=== PATIENT | male | born 1975 | race Caucasian/White ===

== ENCOUNTER 2020-09-03 11:30 | Inpatient (IN) | payer SELFPAY ==
[2020-09-03] MEDS ORDERED: NA CHLORIDE 0.9% 1,000 ML ONE ×2 (12:04→14:01)
[2020-09-03] MEDS ORDERED: MORPHINE 4 MG/ML SYR ONE (12:04)
[2020-09-03] MEDS ORDERED: ONDANSETRON 4 MG/2 ML VIAL ONE ×2 (12:04→16:41)
[2020-09-03 12:17] LABS: Absolute Lymphocytes (CBC) 1.7 K/uL (0.7-4.9); Basophils % 0.7 % (0-1.3); Hematocrit 44.4 % (39.6-49.0); Lymphocytes % 20.6 % (15.3-44.8); MPV 6.7 fL (7.6-11.3); RBC Red Blood Cell Count 4.54 M/uL (4.33-5.43)
[2020-09-03 12:37] LABS: ALT/SGPT 41 U/L (12-78); AST/SGOT 23 U/L (15-37); Albumin 3.8 g/dL (3.4-5.0); Alkaline Phosphatase 96 U/L (45-117); BUN Blood Urea Nitrogen 11 mg/dL (7-18); Bicarbonate 24 mmol/L (21-32); Bilirubin Direct 0.2 mg/dL (0-0.2); Bilirubin Total 0.7 mg/dL (0.2-1.0); Glucose Level 124 mg/dL (74-106); Lipase 645 U/L (73-393); Potassium 4.1 mmol/L (3.5-5.1); Protein, Total 8.1 g/dL (6.4-8.2); Sodium Level 138 mmol/L (136-145)
[2020-09-03] MEDS ORDERED: FENTANYL CITR 100 MCG/2 ML ONE (13:26)
--- NOTE | 2020-09-03 13:39 | RAD REPORT ---
EXAM DESCRIPTION: CTAbdomen Pelvis W Contrast - 09/03/2020 1:06 pm CLINICAL HISTORY: Abdominal pain. ABD PAIN COMPARISON: No comparisons TECHNIQUE: Biphasic CT imaging of the abdomen and pelvis was performed with 100 ml non-ionic IV cont rast. All CT scans are performed using dose optimization technique as appropriate and may include automated exposure control or mA/KV adjustment according to patient size. FINDINGS: The lung bases are clear. The liver, spleen, adrenal glands and kidneys are within normal limits. Subtle peripancreatic edema a nd inflammatory changes suggests mild pancreatitis. No complication. No bowel obstruction, free air, free fluid or abscess. The appendix is normal. No evidence of signi ficant lymphadenopathy. No suspicious bony findings. IMPRESSION: Mild acute pancreatitis is suspected.
--- NOTE | 2020-09-03 13:56 | ER ---
Nurse's Notes [facility] Name: Omar Johnson Age: 45 yrs Sex: Male : 1975 Arrival Date: 09/03/2020 Time: 11:33 Bed 18 Private MD: Diagnosis: Acute pancreatitis Presentation: 09/03 11:40 Chief complaint: Upper abdominal pain that radiates to the back x 4 days. Hx of aa5 pancreatitis. Coronavirus screen: At this time, the client does not indicate any symptoms associated with coronavirus-19. Ebola Screen: No symptoms or risks identified at this time. Initial Sepsis Screen: Does the patient meet any 2 criteria? No. Patient's initial sepsis screen is negative. Does the patient have a suspected source of infection? No. Patient's initial sepsis screen is negative. Risk Assessment: Do you want to hurt yourself or someone else? Patient reports no desire to harm self or others. Onset of symptoms was August 30, 2020. 11:40 Method Of Arrival: Ambulatory aa5 11:40 Acuity: AMOR 3 aa5 Triage Assessment: 11:50 General: Appears distressed, uncomfortable, Behavior is cooperative, appropriate for bp age, anxious. Pain: Complains of pain in abdomen. EENT: No deficits noted. Neuro: No deficits noted. Cardiovascular: No deficits noted. Respiratory: No deficits noted. GI: Abdomen is non-distended, Abdomen is tender to palpation in right upper quadrant and left upper quadrant. : No signs and/or symptoms were reported regarding the genitourinary system. Derm: No deficits noted. Musculoskeletal: No deficits noted. Historical: - Allergies: 11:49 No Known Allergies; aa5 - PMHx: 11:49 Pancreatitis; aa5 - PSHx: 11:49 Knee surgery; eye; wrist; aa5 - Immunization history:: Adult Immunizations up to date. - Social history:: Smoking status: Patient reports the use of cigarette tobacco products, smokes one-half pack cigarettes per day, Patient uses alcohol, every other day since June, heavy ETOH prior. Screenin:55 Abuse screen: Denies threats or abuse. Denies injuries from another. Nutritional bp screening: No deficits noted. Tuberculosis screening: No symptoms or risk factors identified. Fall Risk None identified. Assessment: 11:50 General: SEE TRIAGE NOTE. bp 12:47 Reassessment: No changes from previously documented assessment. Patient and/or family bp updated on plan of care and expected duration. Pain level reassessed. CT RESULTS PENDING. GI: Bowel sounds present X 4 quads. 13:11 Reassessment: Patient appears in no apparent distress at this time. Patient and/or bp family updated on plan of care and expected duration. Pain level reassessed. Patient is alert, oriented x 3, equal unlabored respirations, skin warm/dry/pink. PT RETURNED FROM CT. 15:00 Reassessment: No changes from previously documented assessment. ADMIT IN PROCESS. bp FAMILY AT B/S Patient states symptoms have not improved. Vital Signs: 11:40 BP 135 / 95; Pulse 105; Resp 20; Temp 99; Pulse Ox 100% ; Weight 72.57 kg; Height 5 ft. bp 9 in. (175 cm); Pain 8/10; 12:47 BP 131 / 89; Pulse 60; Resp 16; Pulse Ox 98% ; bp 13:11 BP 150 / 108; Pulse 73; Resp 15; Pulse Ox 100% ; bp 14:08 BP 124 / 88; Pulse 60; Resp 18; Temp 98.0(O); Pulse Ox 97% on R/A; mh5 15:10 BP 142 / 98; Pulse 56; Resp 16; Pulse Ox 100% ; bp 16:19 BP 130 / 103; Pulse 63; Resp 18; Temp 98.0(O); Pulse Ox 94% ; mh5 16:54 BP 137 / 92; Pulse 59; Resp 16; Temp 98; Pulse Ox 100% ; bp 11:40 Body Mass Index 23.63 (72.57 kg, 175 cm) bp ED Course: 11:33 Patient arrived in ED. ag5 11:36 Trinity Her[facility]C [facility] kb 11:36 Macario Carlisle MD is Attending Physician. kb 11:44 Carlos Lamb, CLARIBEL is Primary Nurse. bp 11:47 Triage completed. aa5 11:49 Arm band placed on. aa5 11:55 Patient has correct armband on for positive identification. Bed in low position. Call bp light in reach. Side rails up X2. 11:57 Inserted saline lock: 20 gauge in right forearm, using aseptic technique. Blood bp collected. 13:06 CT Abd/Pelvis - IV Contrast Only In Process Unspecified. EDMS 13:55 Deanna Salamanca MD is Hospitalizing Provider. kb 16:53 No provider procedures requiring assistance completed. Patient admitted, IV remains in bp place. Administered Medications: 12:00 Drug: NS 0.9% 1000 ml Route: IV; Rate: 1000 ml; Site: right forearm; bp 12:00 Drug: Zofran (Ondansetron) 4 mg Route: IVP; Site: right antecubital; bp 13:44 Follow up: Response: No adverse reaction bp 12:00 Drug: morphine 4 mg Route: IVP; Site: right forearm; bp 13:45 Follow up: Response: Pain is decreased bp 13:15 Drug: fentaNYL (PF) 50 mcg Route: IVP; Site: right antecubital; bp 13:45 Follow up: Response: Pain is decreased bp 13:50 Drug: NS 0.9% 1000 ml Route: IV; Rate: 125 ml/hr; Site: right forearm; bp 16:54 Follow up: IV Status: Infusion continued upon admission bp 13:50 Drug: fentaNYL (PF) 50 mcg Route: IVP; Site: right forearm; bp 13:52 Follow up: Response: Pain is decreased bp Outcome: 13:55 Decision to Hospitalize by Provider. kb 16:53 Admitted to Med/surg accompanied by tech, via wheelchair, room 205, with chart, Other bp REPORT BY PRATIMA SANFORD Report called to SILVER SANFORD 16:53 Condition: stable 16:53 Instructed on the need for admit. 16:55 Patient left the ED. bp Signatures: Dispatcher [employer] EDIL Trinity Herrera, GUNNER'S MATE-C GUNNER'S MATE-Ckb Pratima Bartlett, RN RN [email or web address] Monserrat Bell Carlos Valle RN RN Mulugeta Ceja ag5 Corrections: (The following items were deleted from the chart) 15:22 11:40 BP 135 / 95; Pulse 105bpm; Resp 20bpm; Pulse Ox 100%; Temp 99F; 72.57 kg; Height bp 5 ft. 9 in.; BMI: 23.6; Pain 8/10; aa5 15:53 11:40 BP 135 / 95; Pulse 105bpm; Resp 20bpm; Pulse Ox 100%; Temp 99F; 72.57 kg; Height bp 5 ft. 9 in.; BMI: 23.6; Pain 8/10; bp
--- NOTE | 2020-09-03 13:56 | EDPHYS ---
Physician Documentation [facility] Name: Omar Johnson Age: 45 yrs Sex: Male : 1975 Arrival Date: 09/03/2020 Time: 11:33 Bed 18 Private MD: ED Physician Macario Carlisle HPI: 09/03 12:59 This 45 yrs old Male presents to ER via Ambulatory with complaints of kb Abdominal Pain. 12:59 The patient presents with abdominal pain in the upper abdomen. Onset: The kb symptoms/episode began/occurred 4 day(s) ago. The symptoms radiate to right back. Associated signs and symptoms: Pertinent positives: nausea, Pertinent negatives: constipation, diarrhea, fever, vomiting. The symptoms are described as constant. Modifying factors: The symptoms are alleviated by nothing, the symptoms are aggravated by pressure. Severity of pain: At its worst the pain was severe in the emergency department the pain is unchanged. The patient has experienced a previous episode. The patient has not recently seen a physician. Pt reports upper abd pain that radiates to the back that began 4 days ago and has gotten worse. Reports he has been unable to eat due to lack of appetite. Had similar symptoms once before and was admitted to [facility] for pancreatitis back in June. States he used to drink heavily before that, but now only every other day and not near as much.. Historical: - Allergies: 11:49 No Known Allergies; aa5 - PMHx: 11:49 Pancreatitis; aa5 - PSHx: 11:49 Knee surgery; eye; wrist; aa5 - Immunization history:: Adult Immunizations up to date. - Social history:: Smoking status: Patient reports the use of cigarette tobacco products, smokes one-half pack cigarettes per day, Patient uses alcohol, every other day since June, heavy ETOH prior. ROS: 12:56 Constitutional: Negative for fever, chills, and weight loss, Cardiovascular: Negative kb for chest pain, palpitations, and edema, Respiratory: Negative for shortness of breath, cough, wheezing, and pleuritic chest pain, Back: Negative for injury and pain, MS/Extremity: Negative for injury and deformity, Skin: Negative for injury, rash, and discoloration, Neuro: Negative for headache, weakness, numbness, tingling, and seizure. 12:56 Abdomen/GI: Positive for abdominal pain, nausea, Negative for vomiting, diarrhea, constipation. Exam: 12:56 Constitutional: This is a well developed, well nourished patient who is awake, alert, kb and in no acute distress. Head/Face: Normocephalic, atraumatic. Chest/axilla: Normal chest wall appearance and motion. Nontender with no deformity. No lesions are appreciated. Cardiovascular: Regular rate and rhythm with a normal S1 and S2. No gallops, murmurs, or rubs. Normal PMI, no JVD. No pulse deficits. Respiratory: Lungs have equal breath sounds bilaterally, clear to auscultation and percussion. No rales, rhonchi or wheezes noted. No increased work of breathing, no retractions or nasal flaring. Back: No spinal tenderness. No costovertebral tenderness. Full range of motion. Skin: Warm, dry with normal turgor. Normal color with no rashes, no lesions, and no evidence of cellulitis. MS/ Extremity: Pulses equal, no cyanosis. Neurovascular intact. Full, normal range of motion. Neuro: Awake and alert, GCS 15, oriented to person, place, time, and situation. Cranial nerves II-XII grossly intact. Motor strength 5/5 in all extremities. Sensory grossly intact. Cerebellar exam normal. Normal gait. 12:56 Abdomen/GI: Inspection: abdomen appears normal, Bowel sounds: normal, in all quadrants, Palpation: soft, in all quadrants, moderate abdominal tenderness, in the right upper quadrant. Vital Signs: 11:40 BP 135 / 95; Pulse 105; Resp 20; Temp 99; Pulse Ox 100% ; Weight 72.57 kg; Height 5 ft. bp 9 in. (175 cm); Pain 8/10; 12:47 BP 131 / 89; Pulse 60; Resp 16; Pulse Ox 98% ; bp 13:11 BP 150 / 108; Pulse 73; Resp 15; Pulse Ox 100% ; bp 14:08 BP 124 / 88; Pulse 60; Resp 18; Temp 98.0(O); Pulse Ox 97% on R/A; mh5 15:10 BP 142 / 98; Pulse 56; Resp 16; Pulse Ox 100% ; bp 16:19 BP 130 / 103; Pulse 63; Resp 18; Temp 98.0(O); Pulse Ox 94% ; mh5 16:54 BP 137 / 92; Pulse 59; Resp 16; Temp 98; Pulse Ox 100% ; bp 11:40 Body Mass Index 23.63 (72.57 kg, 175 cm) bp MDM: 11:45 Patient medically screened. kb 12:59 Data reviewed: vital signs, nurses notes. Data interpreted: Pulse oximetry: on room air kb is 98 %. Interpretation: normal. 13:45 Counseling: I had a detailed discussion with the patient and/or guardian regarding: the kb historical points, exam findings, and any diagnostic results supporting the discharge/admit diagnosis, lab results, radiology results, the need for further work-up and treatment in the hospital. 09/03 11:46 Order name: Basic Metabolic Panel; Complete Time: 12:37 kb 09/03 11:46 Order name: CBC with Diff; Complete Time: 12:37 kb 09/03 11:46 Order name: Hepatic Function; Complete Time: 12:37 kb 09/03 11:46 Order name: Lipase; Complete Time: 12:37 kb 09/03 14:05 Order name: Lipase [facility] 09/03 14:05 Order name: CBC with Automated Diff [facility] 09/03 12:37 Order name: CT Abd/Pelvis - IV Contrast Only; Complete Time: 13:42 kb 09/03 14:05 Order name: CBC with Automated Diff [facility] 09/03 14:05 Order name: Comprehensive Metabolic Panel [facility] 09/03 14:05 Order name: Comprehensive Metabolic Panel [facility] 09/03 14:05 Order name: Lipase [facility] 09/03 14:05 Order name: Lipase [facility] 09/03 14:05 Order name: Lipid Profile [facility] 09/03 14:05 Order name: Lipid Profile [facility] 09/03 11:46 Order name: IV Saline Lock; Complete Time: 12:05 kb 09/03 11:46 Order name: Labs collected and sent; Complete Time: 12:05 kb 09/03 14:05 Order name: CONS Pharmacy Consult [facility] 09/03 14:05 Order name: NPO [facility] Administered Medications: 12:00 Drug: NS 0.9% 1000 ml Route: IV; Rate: 1000 ml; Site: right forearm; bp 12:00 Drug: Zofran (Ondansetron) 4 mg Route: IVP; Site: right antecubital; bp 13:44 Follow up: Response: No adverse reaction bp 12:00 Drug: morphine 4 mg Route: IVP; Site: right forearm; bp 13:45 Follow up: Response: Pain is decreased bp 13:15 Drug: fentaNYL (PF) 50 mcg Route: IVP; Site: right antecubital; bp 13:45 Follow up: Response: Pain is decreased bp 13:50 Drug: NS 0.9% 1000 ml Route: IV; Rate: 125 ml/hr; Site: right forearm; bp 16:54 Follow up: IV Status: Infusion continued upon admission bp 13:50 Drug: fentaNYL (PF) 50 mcg Route: IVP; Site: right forearm; bp 13:52 Follow up: Response: Pain is decreased bp Disposition: 09/04 14:37 Co-signature as Attending Physician, Macario Carlisle MD I agree with the assessment and kdr plan of care. Disposition: 09/03/20 13:55 Hospitalization ordered by Deanna Salamanca for Observation. Preliminary diagnosis is Acute pancreatitis. - Bed requested for Telemetry/MedSurg (observation). - Status is Observation. bp - Condition is Stable. - Problem is new. - Symptoms are unchanged. Signatures: Dispatcher [employer] EDMS Trinity Herrera, MIND READER-C MIND READER-Ckb Vanessa Benitez, RN RN dw Macario Carlisle MD MD [facility] Pratima Bartlett, RN RN aa5 Carlos Lamb RN RN bp Corrections: (The following items were deleted from the chart) 09/03 16:02 13:55 Hospitalization Ordered by Deanna Salamanca MD for Observation. Preliminary dw diagnosis is Acute pancreatitis. Bed requested for Telemetry/MedSurg (observation). Status is Observation. Condition is Stable. Problem is new. Symptoms are unchanged. kb 16:55 16:02 09/03/2020 13:55 Hospitalization Ordered by Deanna Salamanca MD for Observation. bp Preliminary diagnosis is Acute pancreatitis. Bed requested for Telemetry/MedSurg (observation). Status is Observation. Condition is Stable. Problem is new. Symptoms are unchanged. dw
[2020-09-03] MEDS ORDERED: ONDANSETRON 4 MG/2 ML VIAL IV PRN (14:01)
[2020-09-03] MEDS ORDERED: MORPHINE 2 MG/ML SYR IV PRN (14:01)
[2020-09-03] MEDS ORDERED: ACETAMINOPHEN 500 MG TAB PO PRN (14:01)
[2020-09-03] MEDS: NA CHLORIDE 0.9% 1,000 ML IV SCH (15:00)
--- NOTE | 2020-09-03 15:51 | P.HP ---
Certification for Inpatient Patient admitted to: Inpatient With expected LOS: >2 Midnights Patient will require the following post-hospital care: None Practitioner: I am a practitioner with admitting privileges, knowledge of patient current condition, hospital course, and medical plan of care. Services: Services provided to patient in accordance with Admission requirements found in Title 42 Section 412.3 of the Code of Federal Regulations Patient History Date of Service: 09/03/20 Reason for admission: Acute pancreatitis History of Present Illness: Patient is a 45-year-old gentleman came into the hospital with abdominal pain. Pain was mainly in the epigastric area with radiation to the back. Patient was drinking with his friends. He has had similar episode about a month and half ago. He thought that he would no longer have any issues with alcohol so he decided to drink again. He started having severe abdominal pain and came into the ER for further evaluation. In the emergency room he was found have acute pancreatitis and admitted for inpatient hospitalization. Allergies No Known Allergies Allergy (Unverified 09/03/20 15:18) Home Medications: NK [No Home Meds] 09/03/20 - Past Medical/Surgical History -: Pancreatitis Past Surgical History: Patient denies surgical history - Family History Father Family History: Reviewed- Non-Contributory - Social History Smoking Status: Current every day smoker Alcohol use: Yes CD- Drugs: No Review of Systems 10-point ROS is otherwise unremarkable Physical Examination - Vital Signs Temperature: 98 F Blood Pressure: 140/80 Pulse: 88 Respirations: 18 Pulse Ox (%): 96 - Physical Exam General: Alert, In no apparent distress, Oriented x3 HEENT: Atraumatic, PERRLA, Mucous membr. moist/pink, EOMI, Sclerae nonicteric Neck: Supple, 2+ carotid pulse no bruit, No LAD, Without JVD or thyroid abnormality Respiratory: Clear to auscultation bilaterally, Normal air movement Cardiovascular: Regular rate/rhythm, Normal S1 S2, No murmurs Gastrointestinal: Normal bowel sounds, Soft and benign, No guarding, Distended, Tenderness, Rebound Musculoskeletal: No clubbing, No swelling, No tenderness Integumentary: No rashes Neurological: Normal gait, Normal speech, Normal strength at 5/5 x4 extr, Normal tone, Sensation intact, Cranial nerves 3-12 intact, Normal affect Lymphatics: No axilla or inguinal lymphadenopathy - Studies Laboratory Data (last 24 hrs) 09/03/20 11:58: WBC 8.2, Hgb 15.3, Hct 44.4, Plt Count 271 09/03/20 11:58: Sodium 138, Potassium 4.1, BUN 11, Creatinine 0.87, Glucose 124 H, Total Bilirubin 0.7, AST 23, ALT 41, Alkaline Phosphatase 96, Lipase 645 H Assessment & Plan - Problems (Diagnosis) (1) Acute alcoholic pancreatitis Current Visit: Yes Status: Acute (2) Alcohol abuse Current Visit: Yes Status: Acute (3) Tobacco abuse Current Visit: Yes Status: Acute - Plan Plan: 1. Aggressive IV hydration 2. Pain control 3. NPO 4. Monitor lipase 5. Monitor electrolytes 6. Counseled regarding alcohol and tobacco cessation 7. GI and DVT prophylaxis Discharge Plan: Home Plan to discharge in: Greater than 2 days - Advance Directives Does patient have a Living Will: No Does patient have a Durable POA for Healthcare: No - Code Status/Comfort Care Code Status Assessed: Yes Code Status: Full Code Critical Care: No Time Spent Managing PTS Care (In Minutes): 45
[2020-09-03] MEDS ORDERED: MORPHINE 2 MG/ML SYR ONE (16:40)
[2020-09-03] MEDS: HYDROMORPHONE HCL 1 MG/ML INJ IV PRN (17:16)
[2020-09-03 17:26] VITALS: BMI 23.6
[2020-09-03] MEDS ORDERED: HYDROMORPHONE HCL 1 MG/ML INJ IV ONE (19:35)
[2020-09-03] MEDS ORDERED: MEPERIDINE HCL 25 MG/ML SYR IV ONE (21:55)
[2020-09-04] MEDS ORDERED: HYDROMORPHONE HCL 2 MG/ML inj IV ONE (00:28)
[2020-09-04] MEDS: NA CHLORIDE 0.9% 1,000 ML IV SCH ×5 (00:39→23:00)
[2020-09-04 01:16] LABS: ALT/SGPT 36 U/L (12-78); AST/SGOT 20 U/L (15-37); Albumin 3.5 g/dL (3.4-5.0); Alkaline Phosphatase 79 U/L (45-117); BUN Blood Urea Nitrogen 9 mg/dL (7-18); Bicarbonate 25 mmol/L (21-32); Bilirubin Total 0.7 mg/dL (0.2-1.0); Glucose Level 79 mg/dL (74-106); Potassium 3.5 mmol/L (3.5-5.1); Protein, Total 6.9 g/dL (6.4-8.2); Sodium Level 139 mmol/L (136-145)
[2020-09-04 02:12] LABS: Urine Appearance CLEAR; Urine Bilirubin NEGATIVE (NEG); Urine Blood NEGATIVE (NEG); Urine Color YELLOW; Urine Glucose NEGATIVE (NEG); Urine Protein NEGATIVE (NEG); Urine Specific Gravity 1.015 (1.005-1.030); Urine Urobilinogen 0.2 mg/dL (0.2-1.0); Urine pH 5.5 (5.0-7.0)
[2020-09-04 02:22] LABS: Urine Microscopic Reflex NO UMIC
[2020-09-04] MEDS: HYDROMORPHONE HCL 1 MG/ML INJ IV PRN ×7 (04:23→23:12)
[2020-09-04 05:04] LABS: Hematocrit 38.3 % (39.6-49.0); RBC Red Blood Cell Count 3.98 M/uL (4.33-5.43)
[2020-09-04 05:05] LABS: Absolute Lymphocytes (CBC) 1.1 K/uL (0.7-4.9); Basophils % 0.3 % (0-1.3); Lymphocytes % 12.6 % (15.3-44.8); MPV 6.4 fL (7.6-11.3)
[2020-09-04 05:31] LABS: ALT/SGPT 33 U/L (12-78); AST/SGOT 19 U/L (15-37); Albumin 3.4 g/dL (3.4-5.0); Alkaline Phosphatase 76 U/L (45-117); BUN Blood Urea Nitrogen 9 mg/dL (7-18); Bicarbonate 24 mmol/L (21-32); Bilirubin Total 0.6 mg/dL (0.2-1.0); Glucose Level 76 mg/dL (74-106); Potassium 3.5 mmol/L (3.5-5.1); Protein, Total 6.9 g/dL (6.4-8.2); Sodium Level 139 mmol/L (136-145)
[2020-09-04 05:32] LABS: HDL Cholesterol 36 mg/dL (40-60); LDL Cholesterol, Calculated 94 (<130); Lipase 5266 U/L (73-393)
[2020-09-04] MEDS ORDERED: NA CHLORIDE 0.9% 1,000 ML IV ONE (06:36)
--- NOTE | 2020-09-04 12:34 | P.PN ---
Subjective Date of Service: 09/04/20 Lipase level has increased. Still having significant amount of pain. He said he was overcome with pain last night and was in 2 years. Did advise him to refrain from alcohol use going forward. Hopefully this will really make a appreciate what alcohol is doing to his body. Continue with plan of care at this time. Review of Systems 10-point ROS is otherwise unremarkable Physical Examination - Vital Signs Temperature: 98 F Blood Pressure: 140/80 Pulse: 88 Respirations: 18 Pulse Ox (%): 96 - Physical Exam General: Alert, In no apparent distress, Oriented x3 Respiratory: Clear to auscultation bilaterally, Normal air movement Cardiovascular: Regular rate/rhythm, Normal S1 S2, No murmurs Gastrointestinal: Normal bowel sounds, Soft and benign, Non-distended, No guarding, Tenderness, Rebound Musculoskeletal: No clubbing, No swelling, No tenderness Integumentary: No rashes Neurological: Sensation intact, Cranial nerves 3-12 intact, Normal affect - Studies Laboratory Data (last 24 hrs) 09/03/20 11:58: Sodium 138, Potassium 4.1, BUN 11, Creatinine 0.87, Glucose 124 H, Total Bilirubin 0.7, AST 23, ALT 41, Alkaline Phosphatase 96, Lipase 645 H Medications List Reviewed: Yes Assessment & Plan - Problems (Diagnosis) (1) Acute alcoholic pancreatitis Current Visit: Yes Status: Acute (2) Alcohol abuse Current Visit: Yes Status: Acute (3) Tobacco abuse Current Visit: Yes Status: Acute - Plan Plan: Continue with plan of care as mentioned below 1. Aggressive IV hydration; boluses needed 2. Pain control 3. Resume ice chips at this time. 4. Monitor lipase; repeat lipase level in a.m. 5. Monitor electrolytes. Correct as needed 6. Counseled regarding alcohol and tobacco cessation 7. GI and DVT prophylaxis Discharge Plan: Home Plan to discharge in: Greater than 2 days - Advance Directives Does patient have a Living Will: No Does patient have a Durable POA for Healthcare: No - Code Status/Comfort Care Code Status: Full Code Critical Care: No Time Spent Managing PTS Care (In Minutes): 35
--- NOTE | 2020-09-04 15:39 | RAD REPORT ---
EXAM DESCRIPTION: XR Abdomen, 1 View CLINICAL HISTORY: The patient is 45 years old and is Male; abdominal pain TECHNIQUE: Frontal supine view of the abdomen/pelvis. COMPARISON: No relevant prior studies available. FINDINGS: GASTROINTESTINAL TRACT: The bowel gas pattern is nonobstructive. No dilated loops of bow el are seen. Stool is present within the right colon. No abnormal calcifications or soft tissue emmanuel s are noted. BONES/JOINTS: Unremarkable. IMPRESSION: Nonobstructive, nonspecific bowel gas pattern. Electronically signed by: Marge Salvador MD 09/04/2020 2:18 AM CDT Due to temporary technical issues with the PACS/Fluency reporting system, reports are being signed by the in house radiologist without review as a courtesy to ensure prompt reporting. The interpreting r adiologist is fully responsible for the content of the report.
[2020-09-05] MEDS: HYDROMORPHONE HCL 1 MG/ML INJ IV PRN ×5 (03:42→19:52)
[2020-09-05] MEDS: NA CHLORIDE 0.9% 1,000 ML IV SCH ×4 (03:43→15:00)
[2020-09-05] MEDS ORDERED: NICOTINE 21 MG/PAT TD SCH (09:00)
[2020-09-05 09:47] VITALS: O2SAT 94
[2020-09-05 20:36] VITALS: BP 134/95; TEMP 97.8
--- NOTE | 2020-09-07 08:12 | P.DS ---
Discharge Date: 09/05/20 Disposition: ROUTINE DISCHARGE Discharge Condition: GOOD Reason for Admission: Acute pancreatitis - Problems (1) Acute alcoholic pancreatitis Status: Acute (2) Alcohol abuse Status: Acute (3) Tobacco abuse Status: Acute Brief History of Present Illness: Patient is a 45-year-old gentleman came into the hospital with abdominal pain. Pain was mainly in the epigastric area with radiation to the back. Patient was drinking with his friends. He has had similar episode about a month and half ago. He thought that he would no longer have any issues with alcohol so he decided to drink again. He started having severe abdominal pain and came into the ER for further evaluation. In the emergency room he was found have acute pancreatitis and admitted for inpatient hospitalization. Hospital Course: Patient has been well during hospital stay. Abdominal pain is improved. Patient is tolerating diet. Counseled regarding alcohol cessation and he agrees. Counseled regarding tobacco cessation and he will use nicotine patches. At this time patient is stable for discharge home. Vital Signs/Physical Exam: Temp Pulse Resp BP Pulse Ox 97.8 F 83 19 134/95 H 95 09/05/20 20:00 09/05/20 20:00 09/05/20 20:22 09/05/20 20:00 09/05/20 20:22 General: Alert, In no apparent distress, Oriented x3 Laboratory Data at Discharge: WBC 8.5 K/uL (4.3-10.9) 09/04/20 04:32 Hgb 13.7 g/dL (13.6-17.9) 09/04/20 04:32 Hct 38.3 % (39.6-49.0) L 09/04/20 04:32 Plt Count 218 K/uL (152-406) 09/04/20 04:32 Sodium 139 mmol/L (136-145) 09/04/20 04:32 Potassium 3.5 mmol/L (3.5-5.1) 09/04/20 04:32 BUN 9 mg/dL (7-18) 09/04/20 04:32 Creatinine 0.57 mg/dL (0.55-1.3) 09/04/20 04:32 Glucose 76 mg/dL (74-106) 09/04/20 04:32 Total Bilirubin 0.6 mg/dL (0.2-1.0) 09/04/20 04:32 AST 19 U/L (15-37) 09/04/20 04:32 ALT 33 U/L (12-78) 09/04/20 04:32 Alkaline Phosphatase 76 U/L (45-117) 09/04/20 04:32 Triglycerides 190 mg/dL (<150) H 09/04/20 04:32 Cholesterol 168 mg/dL (<200) 09/04/20 04:32 HDL Cholesterol 36 mg/dL (40-60) L 09/04/20 04:32 Cholesterol/HDL Ratio 4.67 09/04/20 04:32 Lipase 322 U/L (73-393) 09/05/20 16:41 Home Medications: Chlordiazepoxide HCl [Librium] 10 mg PO Q12H PRN #30 capsule 09/05/20 Codeine/APAP [Tylenol W/Codeine #3 tab] 1 tab PO Q12HP PRN #30 tab 09/05/20 New Medications: Chlordiazepoxide HCl [Librium] 10 mg PO Q12H PRN #30 capsule PRN Reason: withdrawals Codeine/APAP [Tylenol W/Codeine #3 tab] 1 tab PO Q12HP PRN #30 tab PRN Reason: Pain Patient Discharge Instructions: OK TO DC IV AND DC HOME. FOLLOW-UP WITH PRIMARY CARE PROVIDER IN 1-2 WEEKS. RETURN TO THE ER IF SYMPTOMS WORSEN. CALL or TEXT DR. AGUERO AT [phone] IF ANY QUESTIONS REGARDING HOSPITAL STAY. PLEASE CALL THE FLOOR AT [phone] IF ANY MEDICATION OR NURSING QUESTIONS. Diet: low fat Activity: Fall precautions Followup: Unknown,U [Primary Care Provider] - Time spent managing pt's care (in minutes): 35
== END 2020-09-05 20:55 | disposition home or self-care (01) | DRG 440 ==
LOC: ER 11:30 → ERHOLD 14:01 → 2ND 16:52
PROVIDERS: ADMIT Hospitalist; ATTEND Hospitalist
DX: K85.20 Alcohol induced acute pancreatitis without necrosis or infection (principal); F17.200 Nicotine dependence, unspecified, uncomplicated; F10.10 Alcohol abuse, uncomplicated; Z79.899 Other long term (current) drug therapy; Z79.891 Long term (current) use of opiate analgesic; Z20.828 Contact with and (suspected) exposure to other viral communicable diseases
CPT/HCPCS: 36415; 74018; 74177; 80048; 80053; 80061; 80076; 81003; 83690; 85025; 99285; J1170; J2175; J2270; J2405; J3010; J7030; Q9967; U0002

== ENCOUNTER 2020-09-17 10:46 | Emergency (ER) | payer SELFPAY ==
--- OUTSIDE RECORDS SUMMARY | 2020-09-17 10:51 | XMS REPORT | Continuity of Care Document ---
:1975 Author Organization [facility] Address [address] [place] [address] Dr. Shankar [address] [place] [id number] Care Team Providers Name Role Phone Unavailable Unavailable Unavailable Problems This patient has no known problems. Allergies, Adverse Reactions, Alerts This patient has no known allergies or adverse reactions. Medications This patient has no known medications. Procedures This patient has no known procedures. Results This patient has no known results.
[2020-09-17] MEDS ORDERED: NA CHLORIDE 0.9% 1,000 ML ONE (11:34)
[2020-09-17] MEDS ORDERED: ONDANSETRON 4 MG/2 ML VIAL ONE (11:34)
[2020-09-17] MEDS ORDERED: MORPHINE 4 MG/ML SYR ONE ×2 (11:34→12:41)
[2020-09-17 11:36] LABS: Absolute Lymphocytes (CBC) 2.2 K/uL (0.7-4.9); Basophils % 1.3 % (0-1.3); Hematocrit 44.4 % (39.6-49.0); Lymphocytes % 25.2 % (15.3-44.8); RBC Red Blood Cell Count 4.61 M/uL (4.33-5.43)
[2020-09-17 11:49] LABS: Albumin 3.9 g/dL (3.4-5.0); Bilirubin Direct 0.1 mg/dL (0-0.2); Bilirubin Total 0.4 mg/dL (0.2-1.0); Potassium 4.3 mmol/L (3.5-5.1); Protein, Total 7.9 g/dL (6.4-8.2)
[2020-09-17 11:58] LABS: Protime INR 0.97
--- NOTE | 2020-09-17 13:05 | RAD REPORT ---
EXAM DESCRIPTION: US - Abdomen Exam Limited - 09/17/2020 12:58 pm CLINICAL HISTORY: EPIGASTRIC PAIN FINDINGS: The gallbladder demonstrates no gallstones. No pericholecystic fluid or gallbladder wall t hickening. The common bile duct is normal measuring 4 mm. The liver demonstrates no findings of intrahepatic biliary dilatation. IMPRESSION: Unremarkable examination.
--- NOTE | 2020-09-17 13:35 | EDPHYS ---
Physician Documentation [facility] Name: Omar Johnson Age: 45 yrs Sex: Male : 1975 Arrival Date: 09/17/2020 Time: 10:47 Bed 17 Private MD: ED Physician Macario Carlisle HPI: 09/17 11:20 This 45 yrs old Male presents to ER via Ambulatory with complaints of cp Abdominal Pain. 11:20 The patient presents with abdominal pain in the epigastric area. Onset: The cp symptoms/episode began/occurred yesterday. The symptoms radiate to back. Associated signs and symptoms: Pertinent negatives: chest pain, constipation, diarrhea, fever, testicular pain, vomiting. The symptoms are described as constant. Modifying factors: the symptoms are aggravated by pressure. The patient has experienced similar episodes in the past, multiple times, today's symptoms are similar, to when the patient was apparently diagnosed with pancreatitis. Historical: - Allergies: 11:08 No Known Allergies; iw - Home Meds: 11:08 librium [Active]; iw - PMHx: 11:08 Pancreatitis; iw - PSHx: 11:08 Knee surgery; eye; wrist; iw - Immunization history:: Adult Immunizations up to date. - Social history:: Smoking status: Patient reports the use of cigarette tobacco products, smokes one-half pack cigarettes per day, Patient uses alcohol, last drink was 3 days ago, had 7 beers . ROS: 11:25 Constitutional: Negative for body aches, chills, fever, poor PO intake. cp 11:25 Eyes: Negative for injury, pain, redness, and discharge. cp 11:25 ENT: Negative for ear pain, sore throat, difficulty swallowing, difficulty handling secretions. 11:25 Cardiovascular: Negative for chest pain, palpitations. 11:25 Respiratory: Negative for cough, shortness of breath, wheezing. 11:25 Abdomen/GI: Positive for abdominal pain, Negative for vomiting, diarrhea, constipation, black/tarry stool, rectal bleeding. 11:25 Back: Positive for radiated pain. 11:25 All other systems are negative. Exam: 11:30 Constitutional: The patient appears in no acute distress, alert, awake, cp non-diaphoretic, non-toxic, well developed, well nourished. 11:30 Head/Face: Normocephalic, atraumatic. cp 11:30 Eyes: Periorbital structures: appear normal, Conjunctiva: normal, no exudate, no injection, Sclera: no appreciated abnormality, Lids and lashes: appear normal, bilaterally. 11:30 ENT: External ear(s): are unremarkable, Nose: is normal, Mouth: Lips: moist, Oral mucosa: moist, Posterior pharynx: is normal, airway is patent. 11:30 Chest/axilla: Inspection: normal, Palpation: is normal, no crepitus, no tenderness. 11:30 Cardiovascular: Rate: tachycardic, Rhythm: regular, Edema: is not appreciated, JVD: is not appreciated. 11:30 Respiratory: the patient does not display signs of respiratory distress, Respirations: normal, no use of accessory muscles, no retractions, labored breathing, is not present, Breath sounds: are clear throughout, no decreased breath sounds. 11:30 Abdomen/GI: Inspection: abdomen appears normal, Bowel sounds: active, all quadrants, Palpation: soft, in all quadrants, moderate abdominal tenderness, in the epigastric area, rebound tenderness, is not appreciated, involuntary guarding, is not appreciated. 11:30 Back: CVA tenderness, is absent. 11:30 Neuro: Orientation: to person, place \T\ time. Mentation: is normal, Motor: moves all fours, strength is normal. Vital Signs: 11:09 BP 148 / 104; Pulse 102; Resp 16 S; Temp 98.5; Pulse Ox 100% on R/A; Weight 72.57 kg; iw Height 5 ft. 9 in. (175.26 cm); Pain 7/10; 12:00 BP 106 / 81; Pulse 81; Resp 17; Pulse Ox 100% ; rb3 13:00 BP 128 / 83; Pulse 84; Resp 17; Pulse Ox 99% ; rb3 11:09 Body Mass Index 23.63 (72.57 kg, 175.26 cm) iw MDM: 11:04 Patient medically screened. cp 13:33 Data reviewed: vital signs, nurses notes, lab test result(s), radiologic studies, cp ultrasound, and as a result, I will discharge patient. 13:33 Response to treatment: the patient's symptoms have markedly improved after treatment. cp Special discussion: Based on the patient's Hx, exam, and Dx evaluation, there is no indication for emergent surgery or inpatient Tx. It is understood by the patient/guardian that if the Sx's persist or worsen they need to return immediately for re-evaluation. 09/17 11:13 Order name: Basic Metabolic Panel; Complete Time: 12:14 cp 09/17 12:14 Interpretation: Normal except: CL 108; GLUC 123. cp 09/17 11:13 Order name: CBC with Diff; Complete Time: 12:14 cp 09/17 12:14 Interpretation: Normal except: HCT 44.4; PLT 326; MPV 7.0. cp 09/17 11:13 Order name: Hepatic Function; Complete Time: 12:14 cp 09/17 11:13 Order name: Lipase; Complete Time: 12:14 cp 09/17 11:13 Order name: PT-INR; Complete Time: 12:14 cp 09/17 11:13 Order name: Ptt, Activated; Complete Time: 12:14 cp 09/17 11:13 Order name: IV Saline Lock; Complete Time: 11:15 cp 09/17 12:15 Order name: US Abdomen Limited; Complete Time: 13:17 cp 09/17 13:17 Interpretation: Report reviewed. 09/17 13:00 Order name: Urine Microscopic Only; Complete Time: 14:08 cp 09/17 13:06 Order name: Urine Dipstick--Ancillary (enter results); Complete Time: 14:08 em1 09/17 11:13 Order name: Labs collected and sent; Complete Time: 11:15 cp 09/17 12:15 Order name: NPO; Complete Time: 13:09 cp 09/17 13:00 Order name: Urine Dipstick-Ancillary (obtain specimen); Complete Time: 13:05 cp Administered Medications: 11:37 Drug: morphine 4 mg Route: IVP; Site: right wrist; rb3 11:50 Follow up: Response: No adverse reaction; Pain is decreased rb3 11:38 Drug: NS 0.9% 1000 ml Route: IV; Rate: 1 bolus; Site: right wrist; rb3 11:38 Drug: Zofran (Ondansetron) 4 mg Route: IVP; Site: right wrist; rb3 11:50 Follow up: Response: No adverse reaction rb3 12:31 Drug: morphine 4 mg Route: IVP; Site: right wrist; rb3 12:45 Follow up: Response: No adverse reaction; Pain is decreased rb3 Disposition: 09/18 07:13 Co-signature as Attending Physician, Macario Carlisle MD I agree with the assessment and kdr plan of care. Disposition: 09/17/20 13:34 Discharged to Home. Impression: Epigastric pain. - Condition is Stable. - Discharge Instructions: Abdominal Pain, Adult, Gastritis, Adult. - Prescriptions for Carafate 1 gram Oral Tablet - take 1 tablet by ORAL route 4 times per day take on an empty stomach, beginning on waking and last dose at bedtime. dissolve tablet in 8 oz warm water prior to ingestion; 100 tablet. Protonix 40 mg Oral Tablet - take 1 tablet by ORAL route once daily; 30 tablet. Zofran 4 mg Oral Tablet - take 1 tablet by ORAL route every 12 hours As needed; 20 tablet. - Medication Reconciliation Form, Thank You Letter, Antibiotic Education, Prescription Opioid Use form. - Follow up: Johann Garcia MD; When: 2 - 3 days; Reason: Recheck today's complaints. - Problem is new. - Symptoms have improved. Signatures: Dispatcher [employer] EDID Macario Carlisle MD MD kdr Angely Dahl RN RN iw Liang Turpin PA PA cp Laila Skaggs, RN RN rb3 Corrections: (The following items were deleted from the chart) 09/17 14:40 13:34 09/17/2020 13:34 Discharged to Home. Impression: Epigastric pain. Condition is rb3 Stable. Forms are Medication Reconciliation Form, Thank You Letter, Antibiotic Education, Prescription Opioid Use. Follow up: Johann Garcia; When: 2 - 3 days; Reason: Recheck today's complaints. Problem is new. Symptoms have improved. cp
--- NOTE | 2020-09-17 13:35 | ER ---
Nurse's Notes [facility] Name: Omar Johnson Age: 45 yrs Sex: Male : 1975 Arrival Date: 09/17/2020 Time: 10:47 Bed 17 Private MD: Diagnosis: Epigastric pain Presentation: 09/17 11:05 Chief complaint: Patient states: hx of pancreatitis, started having mid abd pain last iw night, +diarrhea, no vomiting, quit drinking 2-3 weeks ago, was a daily drinker, drank 7 beers 3 days ago. Coronavirus screen: At this time, the client does not indicate any symptoms associated with coronavirus-19. Ebola Screen: Patient negative for fever greater than or equal to 101.5 degrees Fahrenheit, and additional compatible Ebola Virus Disease symptoms Patient denies exposure to infectious person. Patient denies travel to an Ebola-affected area in the 21 days before illness onset. No symptoms or risks identified at this time. Initial Sepsis Screen: Does the patient meet any 2 criteria? No. Patient's initial sepsis screen is negative. Does the patient have a suspected source of infection? No. Patient's initial sepsis screen is negative. Risk Assessment: Do you want to hurt yourself or someone else? Patient reports no desire to harm self or others. Onset of symptoms was September 16, 2020. 11:05 Method Of Arrival: Ambulatory iw 11:05 Acuity: AMOR 3 iw Historical: - Allergies: 11:08 No Known Allergies; iw - Home Meds: 11:08 librium [Active]; iw - PMHx: 11:08 Pancreatitis; iw - PSHx: 11:08 Knee surgery; eye; wrist; iw - Immunization history:: Adult Immunizations up to date. - Social history:: Smoking status: Patient reports the use of cigarette tobacco products, smokes one-half pack cigarettes per day, Patient uses alcohol, last drink was 3 days ago, had 7 beers . Screenin:10 Abuse screen: Denies threats or abuse. Nutritional screening: No deficits noted. rb3 Tuberculosis screening: No symptoms or risk factors identified. Fall Risk None identified. Assessment: 11:10 General: Appears in no apparent distress. comfortable, Behavior is calm, cooperative. rb3 Pain: Complains of pain in epigastric area Pain currently is 7 out of 10 on a pain scale. Pain began last night. Neuro: Level of Consciousness is awake, alert, obeys commands, Oriented to person, place, time, situation. Cardiovascular: Patient's skin is warm and dry. Respiratory: Airway is patent Respiratory effort is even, unlabored, Respiratory pattern is regular, symmetrical. GI: Bowel sounds present X 4 quads. Abd is soft Reports diarrhea. : No signs and/or symptoms were reported regarding the genitourinary system. 11:50 Reassessment: Patient appears in no apparent distress at this time. Patient and/or rb3 family updated on plan of care and expected duration. Pain level reassessed. Patient is alert, oriented x 3, equal unlabored respirations, skin warm/dry/pink. 12:32 Reassessment: Pt. went to US. rb3 12:32 Neuro: Level of Consciousness is awake, alert, obeys commands, Oriented to person, rb3 place, time, situation. 13:33 Reassessment: Patient appears in no apparent distress at this time. Patient and/or rb3 family updated on plan of care and expected duration. Pain level reassessed. Patient is alert, oriented x 3, equal unlabored respirations, skin warm/dry/pink. 14:22 Reassessment: Patient appears in no apparent distress at this time. No changes from rb3 previously documented assessment. Vital Signs: 11:09 BP 148 / 104; Pulse 102; Resp 16 S; Temp 98.5; Pulse Ox 100% on R/A; Weight 72.57 kg; iw Height 5 ft. 9 in. (175.26 cm); Pain 7/10; 12:00 BP 106 / 81; Pulse 81; Resp 17; Pulse Ox 100% ; rb3 13:00 BP 128 / 83; Pulse 84; Resp 17; Pulse Ox 99% ; rb3 11:09 Body Mass Index 23.63 (72.57 kg, 175.26 cm) iw ED Course: 10:47 Patient arrived in ED. ag5 10:57 Liang Turpin PA is PHCP. cp 10:57 Macario Carlisle MD is Attending Physician. cp 11:08 Triage completed. iw 11:09 Arm band placed on. iw 11:10 Patient has correct armband on for positive identification. Bed in low position. Call rb3 light in reach. Side rails up X 1. Pulse ox on. NIBP on. 11:15 Initial lab(s) drawn, by me, sent to lab. Inserted saline lock: 20 gauge in right ca1 forearm, using aseptic technique. Blood collected. 12:58 US Abdomen Limited In Process Unspecified. EDMS 13:33 Johann Garcia MD is Referral Physician. cp 14:26 No provider procedures requiring assistance completed. IV discontinued, intact, rb3 bleeding controlled, No redness/swelling at site. Pressure dressing applied. Administered Medications: 11:37 Drug: morphine 4 mg Route: IVP; Site: right wrist; rb3 11:50 Follow up: Response: No adverse reaction; Pain is decreased rb3 11:38 Drug: NS 0.9% 1000 ml Route: IV; Rate: 1 bolus; Site: right wrist; rb3 11:38 Drug: Zofran (Ondansetron) 4 mg Route: IVP; Site: right wrist; rb3 11:50 Follow up: Response: No adverse reaction rb3 12:31 Drug: morphine 4 mg Route: IVP; Site: right wrist; rb3 12:45 Follow up: Response: No adverse reaction; Pain is decreased rb3 Outcome: 13:34 Discharge ordered by . cp 14:26 Patient left the ED. rb3 14:26 Discharged to home ambulatory. rb3 14:26 Condition: stable 14:26 Discharge instructions given to patient, Instructed on discharge instructions, follow up and referral plans. medication usage, Demonstrated understanding of instructions, follow-up care, medications, Prescriptions given X 3. Signatures: Dispatcher [employer] EDAR Angely Dahl RN RN iw Page, Corey, PA PA cp Acob, Cheryl, RN RN ca1 Claudine, Mulugeta ag5 Laila Skaggs RN RN rb3 Corrections: (The following items were deleted from the chart) 12:33 12:32 Reassessment: Pt. went to US rb3 rb3 16:16 14:40 Patient left the ED. rb3 rb3
[2020-09-17 14:04] LABS: Urine Amorphous Sediment 3+ /HPF (NONE SEEN); Urine Bacteria <20 /HPF (NONE SEEN); Urine Culture Reflex Order NOT NEEDED; Urine Mucus 1+ /HPF (NONE SEEN); Urine RBC <5 /HPF (NONE SEEN)
[2020-09-17 14:04] LABS: Urine Blood NEGATIVE (NEG); Urine Glucose NEGATIVE (NEG); Urine Protein NEGATIVE (NEG); Urine Specific Gravity >1.030 (1.005-1.030); Urine pH 5.5 (5.0-7.0)
[2020-09-17 15:24] VITALS: TEMP 98.5; O2SAT 100
[2020-09-17 15:25] VITALS: BP 106/81
== END 2020-09-17 14:40 | disposition home or self-care (01) ==
LOC: ER 10:46
DX: R10.13 Epigastric pain (principal); F17.210 Nicotine dependence, cigarettes, uncomplicated
CPT/HCPCS: 36415; 76705; 80048; 80076; 81003; 81015; 83690; 85025; 85610; 85730; 96374; 96375; 99284; J2405; J7030

== ENCOUNTER 2021-01-19 02:18 | Observation (INO) | payer SELFPAY ==
--- OUTSIDE RECORDS SUMMARY | 2021-01-19 02:20 | XMS REPORT | Continuity of Care Document ---
:1975 Author Organization [facility] t Address [address] [place] [address] Dr. Shankar [address] [place] [id number] Care Team Providers Name Role Phone Unavailable Unavailable Unavailable Problems This patient has no known problems. Allergies, Adverse Reactions, Alerts This patient has no known allergies or adverse reactions. Medications This patient has no known medications. Procedures This patient has no known procedures. Results This patient has no known results.
[2021-01-19 03:40] LABS: Barbiturates NEGATIVE (NEGATIVE); Benzodiazepines NEGATIVE (NEGATIVE); Cocaine NEGATIVE (NEGATIVE); METHAMPHETAM NEGATIVE (NEGATIVE); Methadone NEGATIVE (NEGATIVE); Opiates NEGATIVE (NEGATIVE); Phencyclidine NEGATIVE (NEGATIVE); THC Cannibis NEGATIVE (NEGATIVE)
[2021-01-19] MEDS ORDERED: MORPHINE 4 MG/ML SYR ONE ×2 (03:41→06:08)
[2021-01-19] MEDS ORDERED: NA CHLORIDE 0.9% 1,000 ML ONE (03:41)
[2021-01-19] MEDS ORDERED: ONDANSETRON 4 MG/2 ML VIAL ONE (03:41)
[2021-01-19] MEDS ORDERED: FAMOTIDINE 20 MG/2 ML VIAL IV ONE (03:41)
[2021-01-19 04:00] LABS: Absolute Lymphocytes (CBC) 2.1 K/uL (0.7-4.9); Basophils % 1.4 % (0-1.3); Hematocrit 40.8 % (39.6-49.0); Lymphocytes % 34.7 % (15.3-44.8); MPV 6.7 fL (7.6-11.3); RBC Red Blood Cell Count 4.24 M/uL (4.33-5.43)
[2021-01-19 04:11] LABS: ALT/SGPT 41 U/L (12-78); AST/SGOT 18 U/L (15-37); Albumin 3.9 g/dL (3.4-5.0); Alkaline Phosphatase 77 U/L (45-117); BUN Blood Urea Nitrogen 11 mg/dL (7-18); Bicarbonate 22 mmol/L (21-32); Bilirubin Direct < 0.1 mg/dL (0-0.2); Bilirubin Total 0.3 mg/dL (0.2-1.0); Glucose Level 113 mg/dL (74-106); Lipase 125 U/L (73-393); Potassium 3.9 mmol/L (3.5-5.1); Protein, Total 7.3 g/dL (6.4-8.2); Sodium Level 141 mmol/L (136-145)
[2021-01-19 04:23] LABS: Urine Blood TRACE (NEG); Urine Glucose NEGATIVE (NEG); Urine Protein NEGATIVE (NEG); Urine Specific Gravity >1.030 (1.005-1.030); Urine pH 5.5 (5.0-7.0)
--- NOTE | 2021-01-19 05:39 | ER ---
Nurse's Notes [facility] Name: Omar Johnson Age: 45 yrs Sex: Male : 1975 Arrival Date: 01/19/2021 Time: 02:20 Bed 18 Private MD: Diagnosis: Alcohol induced acute pancreatitis Presentation: 01/19 03:00 Method Of Arrival: Ambulatory sf 03:05 Chief complaint: Patient states: abd pain, hx pancreatitis, feels like pancreatitis, sf has been drinking again but not as much as normally. Coronavirus screen: Client denies travel out of the [place] in the last 14 days. At this time, the client does not indicate any symptoms associated with coronavirus-19. Ebola Screen: Patient negative for fever greater than or equal to 101.5 degrees Fahrenheit, and additional compatible Ebola Virus Disease symptoms Patient denies exposure to infectious person. Patient denies travel to an Ebola-affected area in the 21 days before illness onset. No symptoms or risks identified at this time. 03:05 Initial Sepsis Screen: Does the patient meet any 2 criteria? No. Patient's initial sf sepsis screen is negative. Does the patient have a suspected source of infection? No. Patient's initial sepsis screen is negative. Risk Assessment: Do you want to hurt yourself or someone else? Patient reports no desire to harm self or others. Onset of symptoms was January 19, 2021. 03:05 Acuity: AMOR 3 sf Triage Assessment: 03:05 General: Appears uncomfortable, Behavior is calm, cooperative, Smells of alcohol. Pain: sf Complains of pain in epigastric area Pain currently is 8 out of 10 on a pain scale. Neuro: No deficits noted. Level of Consciousness is awake, alert, Oriented to person, place. Cardiovascular: No deficits noted. Patient's skin is warm and dry. Respiratory: No deficits noted. Airway is patent Respiratory effort is even, unlabored, Respiratory pattern is regular, symmetrical. GI: Abdomen is non-distended, Reports upper abdominal pain, vomiting, Patient currently denies diarrhea, nausea. : No signs and/or symptoms were reported regarding the genitourinary system. Historical: - Allergies: 03:05 No Known Allergies; sf - Home Meds: 03:05 None [Active]; sf - PMHx: 03:05 Pancreatitis; sf - PSHx: 03:05 None; sf - Immunization history:: Adult Immunizations up to date. - Social history:: Smoking status: Patient reports the use of cigarette tobacco products, smokes one-half pack cigarettes per day, Patient uses alcohol, occasionally. Patient/guardian denies using street drugs, IV drugs. Screenin:05 Abuse screen: Denies threats or abuse. Denies injuries from another. Nutritional sf screening: No deficits noted. Tuberculosis screening: No symptoms or risk factors identified. Never had TB. Possible symptoms: None Risk factors: None. Fall Risk None identified. No fall in past 12 months (0 pts). No secondary diagnosis (0 pts). IV access (20 points). Ambulatory Aid- None/Bed Rest/Nurse Assist (0 pts). Gait- Normal/Bed Rest/Wheelchair (0 pts) Mental Status- Oriented to own ability (0 pts). Total Daniel Fall Scale indicates No Risk (0-24 pts). Assessment: 03:05 Reassessment: SEE TRIAGE NOTE. sf 04:08 Reassessment: Patient appears in no apparent distress at this time. Patient and/or sf family updated on plan of care and expected duration. Pain level reassessed. Patient is alert, oriented x 3, equal unlabored respirations, skin warm/dry/pink. Patient states feeling better. Patient states symptoms have improved. 05:42 Reassessment: Patient appears in no apparent distress at this time. Patient and/or sf family updated on plan of care and expected duration. Pain level reassessed. Patient is alert, oriented x 3, equal unlabored respirations, skin warm/dry/pink. Reports pain has increased to 8/10. 07:30 Reassessment: Patient appears in no apparent distress at this time. Patient and/or bw family updated on plan of care and expected duration. Pain level reassessed. Patient is alert, oriented x 3, equal unlabored respirations, skin warm/dry/pink. Pain: Complains of pain in abdomen. 08:30 Reassessment: Patient appears in no apparent distress at this time. Patient and/or bw family updated on plan of care and expected duration. Pain level reassessed. Patient is alert, oriented x 3, equal unlabored respirations, skin warm/dry/pink. 09:30 Reassessment: at . Pt to be DC'd. No other needs or concerns voiced at this time. 10:30 Reassessment: Patient appears in no apparent distress at this time. Patient and/or bw family updated on plan of care and expected duration. Pain level reassessed. Patient is alert, oriented x 3, equal unlabored respirations, skin warm/dry/pink. 11:09 GI: Bowel sounds present X 4 quads. Abd is soft Abdomen is tender to palpation. Vital Signs: 03:05 BP 116 / 98; Pulse 91; Resp 18; Temp 98.6; Pulse Ox 95% ; Weight 70.31 kg; Height 5 ft. sf 9 in. (175.26 cm); Pain 8/10; 03:46 BP 115 / 86; Pulse 79; Pulse Ox 94% ; sf 04:00 BP 119 / 91; Pulse 84; Resp 16; Pulse Ox 99% ; sf 04:08 Pain 5/10; sf 04:40 BP 123 / 89; Pulse 76; Resp 16; Pulse Ox 98% ; sf 05:00 BP 122 / 90; Pulse 75; Pulse Ox 97% ; sf 05:30 BP 120 / 87; Pulse 73; Resp 18; Pulse Ox 95% ; sf 05:42 Pain 8/10; sf 08:30 BP 119 / 84; Pulse 79; Resp 20; Pulse Ox 97% on R/A; bw 10:30 BP 121 / 89; Pulse 78; Resp 20; Pulse Ox 96% on R/A; Pain 4/10; bw 03:05 Body Mass Index 22.89 (70.31 kg, 175.26 cm) ED Course: 02:20 Patient arrived in ED. cl3 02:50 Cesar Concepcion MD is Attending Physician. mh7 02:56 Gennaro Kamara RN is Primary Nurse. sf 03:05 Arm band placed on right wrist. sf 03:05 Patient has correct armband on for positive identification. Bed in low position. Call light in reach. Side rails up X 1. Pulse ox on. NIBP on. Door closed. Noise minimized. Visitors limited. Lights dimmed. Verbal reassurance given. 03:10 Initial lab(s) drawn, by vt, sent to lab. Inserted saline lock: 20 gauge in right sf forearm, using aseptic technique. Blood collected. 03:18 Triage completed. sf 04:03 EKG done, by ED staff, reviewed by Cesar Concepcion MD. sf 04:38 CT Abd/Pelvis - IV Contrast Only Sent. sf 05:38 Terence Carballo is Hospitalizing Provider. [facility] 06:30 No provider procedures requiring assistance completed. Patient admitted, IV remains in sf place. 07:25 Report given to CLARIBEL Mckeon. sf 08:06 CT Abd/Pelvis - IV Contrast Only In Process Unspecified. EDMS Administered Medications: 03:23 Drug: NS 0.9% 1000 ml Route: IV; Rate: 1000 ml; Site: right forearm; sf 05:41 Follow up: IV Status: Completed infusion; IV Intake: 1000ml sf 03:24 Drug: morphine 4 mg Route: IVP; Site: right forearm; sf 04:07 Follow up: Response: No adverse reaction; Pain is decreased sf 03:24 Drug: Zofran (Ondansetron) 4 mg Route: IVP; Site: right forearm; sf 04:07 Follow up: Response: No adverse reaction; Pain is decreased sf 03:25 Drug: Pepcid 20 mg Route: IVP; Site: right forearm; sf 04:07 Follow up: Response: No adverse reaction; Pain is decreased sf 05:53 Drug: morphine 4 mg Route: IVP; Site: right forearm; sf 06:44 Follow up: Response: No adverse reaction; Pain is decreased sf 05:55 Drug: Reglan 10 mg Route: IVP; Site: right forearm; sf 06:44 Follow up: Response: No adverse reaction; Nausea is decreased sf Intake: 05:41 IV: 1000ml; Total: 1000ml. sf Output: 05:58 Urine: 575ml (Voided); Total: 575ml. Outcome: 05:38 Decision to Hospitalize by Provider. [facility] 06:30 Admitted to ER Hold. Please see [facility] for further documentation. sf 06:30 Condition: stable 06:30 Instructed on the need for admit. 11:40 Patient left the ED. Signatures: Dispatcher [employer] EDMS Betsy Gee RN RN hb Lewis, Charde cl3 Cesar Concepcion MD MD [facility] Gennaro Kamara RN RN Linda Elizondo RN RN Corrections: (The following items were deleted from the chart) 04:44 03:05 General: Appears uncomfortable, Behavior is calm, cooperative, sf sf
--- NOTE | 2021-01-19 05:39 | EDPHYS ---
Physician Documentation [facility] Name: Omar Johnson Age: 45 yrs Sex: Male : 1975 Arrival Date: 01/19/2021 Time: 02:20 Bed 18 Private MD: ED Physician Cesar Concepcion HPI: 01/19 03:10 This 45 yrs old Male presents to ER via Unassigned with complaints of mh7 Abdominal Pain. 03:10 The patient presents with abdominal pain in the upper abdomen. Onset: The mh7 symptoms/episode began/occurred 2 day(s) ago. The symptoms do not radiate. Associated signs and symptoms: Pertinent positives: nausea and vomiting, Pertinent negatives: anorexia, blood in stools, chest pain, constipation, diarrhea, dysuria, fever, headache, hematuria, palpitations, shortness of breath, testicular pain, vomiting blood. The symptoms are described as intermittent, vague, waxing/waning. Modifying factors: The symptoms are alleviated by nothing, the symptoms are aggravated by nothing. Severity of pain: At its worst the pain was moderate last night, in the emergency department the pain is unchanged. Historical: - Allergies: 03:05 No Known Allergies; sf - Home Meds: 03:05 None [Active]; sf - PMHx: 03:05 Pancreatitis; sf - PSHx: 03:05 None; sf - Immunization history:: Adult Immunizations up to date. - Social history:: Smoking status: Patient reports the use of cigarette tobacco products, smokes one-half pack cigarettes per day, Patient uses alcohol, occasionally. Patient/guardian denies using street drugs, IV drugs. ROS: 03:10 Constitutional: Negative for fever, chills, and weight loss, Eyes: Negative for injury, mh7 pain, redness, and discharge, ENT: Negative for injury, pain, and discharge, Neck: Negative for injury, pain, and swelling, Cardiovascular: Negative for chest pain, palpitations, and edema, Respiratory: Negative for shortness of breath, cough, wheezing, and pleuritic chest pain, Back: Negative for injury and pain, : Negative for injury, bleeding, discharge, and swelling, MS/Extremity: Negative for injury and deformity, Skin: Negative for injury, rash, and discoloration, Neuro: Negative for headache, weakness, numbness, tingling, and seizure, Psych: Negative for depression, anxiety, suicide ideation, homicidal ideation, and hallucinations, Allergy/Immunology: Negative for hives, rash, and allergies, Endocrine: Negative for neck swelling, polydipsia, polyuria, polyphagia, and marked weight changes, Hematologic/Lymphatic: Negative for swollen nodes, abnormal bleeding, and unusual bruising. Exam: 03:10 Constitutional: This is a well developed, well nourished patient who is awake, alert, mh7 and in no acute distress. Head/Face: Normocephalic, atraumatic. Eyes: Pupils equal round and reactive to light, extra-ocular motions intact. Lids and lashes normal. Conjunctiva and sclera are non-icteric and not injected. Cornea within normal limits. Periorbital areas with no swelling, redness, or edema. Neck: Trachea midline, no thyromegaly or masses palpated, and no cervical lymphadenopathy. Supple, full range of motion without nuchal rigidity, or vertebral point tenderness. No Meningismus. Chest/axilla: Normal chest wall appearance and motion. Nontender with no deformity. No lesions are appreciated. Cardiovascular: Regular rate and rhythm with a normal S1 and S2. No gallops, murmurs, or rubs. Normal PMI, no JVD. No pulse deficits. Respiratory: Lungs have equal breath sounds bilaterally, clear to auscultation and percussion. No rales, rhonchi or wheezes noted. No increased work of breathing, no retractions or nasal flaring. 03:10 Back: No spinal tenderness. No costovertebral tenderness. Full range of motion. Skin: Warm, dry with normal turgor. Normal color with no rashes, no lesions, and no evidence of cellulitis. MS/ Extremity: Pulses equal, no cyanosis. Neurovascular intact. Full, normal range of motion. Neuro: Awake and alert, GCS 15, oriented to person, place, time, and situation. Cranial nerves II-XII grossly intact. Motor strength 5/5 in all extremities. Sensory grossly intact. Cerebellar exam normal. Normal gait. Psych: Awake, alert, with orientation to person, place and time. Behavior, mood, and affect are within normal limits. 03:10 Abdomen/GI: Inspection: abdomen appears normal, Bowel sounds: normal, in all quadrants, Palpation: moderate abdominal tenderness, in the epigastric area, right upper quadrant and left upper quadrant, mass, is not appreciated, rebound tenderness, is not appreciated, voluntary guarding, is not appreciated, involuntary guarding, is not appreciated, no appreciated organomegaly, Rectal exam: the exam is deferred, because of patient request, Indicators: McBurney's point is not tender, Patiño's sign is negative, Rovsing's sign is negative, Obturator sign is negative, Psoas sign is negative, Liver: no appreciated palpable abnormalities, Hernia: not appreciated. Vital Signs: 03:05 BP 116 / 98; Pulse 91; Resp 18; Temp 98.6; Pulse Ox 95% ; Weight 70.31 kg; Height 5 ft. sf 9 in. (175.26 cm); Pain 8/10; 03:46 BP 115 / 86; Pulse 79; Pulse Ox 94% ; sf 04:00 BP 119 / 91; Pulse 84; Resp 16; Pulse Ox 99% ; sf 04:08 Pain 5/10; sf 04:40 BP 123 / 89; Pulse 76; Resp 16; Pulse Ox 98% ; sf 05:00 BP 122 / 90; Pulse 75; Pulse Ox 97% ; sf 05:30 BP 120 / 87; Pulse 73; Resp 18; Pulse Ox 95% ; sf 05:42 Pain 8/10; sf 08:30 BP 119 / 84; Pulse 79; Resp 20; Pulse Ox 97% on R/A; bw 10:30 BP 121 / 89; Pulse 78; Resp 20; Pulse Ox 96% on R/A; Pain 4/10; bw 03:05 Body Mass Index 22.89 (70.31 kg, 175.26 cm) MDM: 05:38 Patient medically screened. [facility] 05:44 Differential diagnosis: bowel obstruction, cholecystitis, Cholelithiasis, 7 diverticulitis, gastritis, gastroesophageal reflux disease, Hepatitis, non-specific abd pain, pancreatitis, Peptic Ulcer Disease, Pyelonephritis, Ureterolithiasis, urinary tract infection. Data reviewed: vital signs, nurses notes, old medical records, lab test result(s), amylase and lipase, CBC, drug level(s), alcohol, electrolytes, urinalysis, EKG, radiologic studies, CT scan. Data interpreted: Pulse oximetry: on room air is 95 %. Interpretation: normal. Counseling: I had a detailed discussion with the patient and/or guardian regarding: the historical points, exam findings, and any diagnostic results supporting the discharge/admit diagnosis, lab results, radiology results, the need for further work-up and treatment in the hospital. Response to treatment: the patient's symptoms have mildly improved after treatment. 01/19 03:00 Order name: Basic Metabolic Panel; Complete Time: 04:13 7 01/19 03:00 Order name: CBC with Diff; Complete Time: 04:13 7 01/19 03:00 Order name: Hepatic Function; Complete Time: 04:13 7 01/19 03:00 Order name: Lipase; Complete Time: 04:13 7 01/19 03:00 Order name: UDS; Complete Time: 03:47 7 01/19 03:00 Order name: ETOH Level; Complete Time: 05:27 7 01/19 03:00 Order name: CT Abd/Pelvis - IV Contrast Only 01/19 03:05 Order name: Urine Dipstick--Ancillary (enter results); Complete Time: 05:27 [facility] 01/19 03:00 Order name: IV Saline Lock; Complete Time: 03:16 7 01/19 03:00 Order name: Labs collected and sent; Complete Time: 03:16 7 01/19 03:00 Order name: Urine Dipstick-Ancillary (obtain specimen); Complete Time: 03:02 7 01/19 03:00 Order name: EKG - Nurse/Tech; Complete Time: 04:07 mh7 Administered Medications: 03:23 Drug: NS 0.9% 1000 ml Route: IV; Rate: 1000 ml; Site: right forearm; sf 05:41 Follow up: IV Status: Completed infusion; IV Intake: 1000ml sf 03:24 Drug: morphine 4 mg Route: IVP; Site: right forearm; sf 04:07 Follow up: Response: No adverse reaction; Pain is decreased sf 03:24 Drug: Zofran (Ondansetron) 4 mg Route: IVP; Site: right forearm; sf 04:07 Follow up: Response: No adverse reaction; Pain is decreased sf 03:25 Drug: Pepcid 20 mg Route: IVP; Site: right forearm; sf 04:07 Follow up: Response: No adverse reaction; Pain is decreased sf 05:53 Drug: morphine 4 mg Route: IVP; Site: right forearm; sf 06:44 Follow up: Response: No adverse reaction; Pain is decreased sf 05:55 Drug: Reglan 10 mg Route: IVP; Site: right forearm; sf 06:44 Follow up: Response: No adverse reaction; Nausea is decreased sf Disposition: 01/19/21 05:38 Hospitalization ordered by Terence Carballo for Inpatient Admission. Preliminary diagnosis is Alcohol induced acute pancreatitis. - Bed requested for [facility] ER HOLD. - Status is Inpatient Admission. hb - Condition is Stable. - Problem is an acute exacerbation. - Symptoms have improved. Signatures: Dispatcher [employer] EDMS Brittanie Werner Heather, RN RN Cesar Concepcion MD MD [facility] Gennaro Kamara RN RN sf Corrections: (The following items were deleted from the chart) 07:48 05:38 Hospitalization Ordered by Terence Carballo for Inpatient Admission. Preliminary bd diagnosis is Alcohol induced acute pancreatitis. Bed requested for Telemetry/MedSurg (Inpatient). Status is Inpatient Admission. Condition is Stable. Problem is an acute exacerbation. Symptoms have improved. [facility] 11:40 07:48 01/19/2021 05:38 Hospitalization Ordered by Terence Carballo for Inpatient hb Admission. Preliminary diagnosis is Alcohol induced acute pancreatitis. Bed requested for [facility] ER HOLD. Status is Inpatient Admission. Condition is Stable. Problem is an acute exacerbation. Symptoms have improved. bd
[2021-01-19] MEDS ORDERED: METOCLOPRAMIDE 10 MG/2mL INJ ONE (06:07)
[2021-01-19] MEDS ORDERED: NA CHLORIDE 0.9% 50 ML ONE (06:08)
--- NOTE | 2021-01-19 10:36 | RAD REPORT ---
EXAM DESCRIPTION: CT - Abdomen Pelvis W Contrast - 01/19/2021 6:51 am COMPARISON: CT abdomen pelvis November 25, 2020 CLINICAL HISTORY: [facility] MAIN Abd pain;Nausea / vomiting TECHNIQUE: CT of the abdomen and pelvis was acquired with IV contrast material. Coronal and sagitt al reconstructions were obtained. Automated exposure control was utilized on this examination as a dose lowering technique. FINDINGS: Lung bases: Clear. Liver: Normal. Gallbladder and biliary: Normal gallbladder. Unremarkable biliary tree. Pancreas: Normal appearance of the parenchyma with trace fluid adjacent to the pancreatic tail and a few adjacent likely reactive lymph nodes. Spleen: Normal. Adrenal glands: Normal adrenal glands. Kidneys: Mild nonspecific left perinephric stranding. Otherwise, unremarkable. Stomach and Small Bowel: The stomach is normal. The distal duodenal/proximal jejunal bowel wall is mi ldly thickened. Urinary bladder: Normal. Prostate/Male Urogenital: Normal. Colon and Appendix: Mild sigmoid diverticulosis is present. No evidence of appendicitis. Retroperitoneum and lymph nodes: A few likely reactive lymph nodes are noted in the upper mesentery. Vascular: Mild atherosclerosis. Peritoneal cavity: No ascites or free air. Musculoskeletal and soft tissues: Soft tissues are unremarkable. No aggressive bone lesions. No com pression fracture. IMPRESSION: Trace fluid adjacent to the pancreatic tail and a few upper mesenteric lymph nodes may i ndicate early pancreatitis. Alternatively, this could represent mild enteritis. Electronically signed by: Glen Mann MD 01/19/2021 5:07 AM PROPERTY MANAGEMENT COORDINATOR Due to temporary technical issues with the PACS/Fluency reporting system, reports are being signed by the in house radiologist without review as a courtesy to ensure prompt reporting. The interpreting r adiologist is fully responsible for the content of the report.
--- NOTE | 2021-01-19 11:08 | P.SSS ---
Patient History Date of Service: 01/19/21 Reason for admission: Abdominal pain History of Present Illness: 45-year-old gentleman with a history of alcohol abuse presented to the emergency department with a complaint of abdominal pain of 2 days duration. Pain is associated with nausea and vomiting. Patient stated he was not able to hold any food or water in for a day. Workup in the ED was unremarkable except alcohol level of 68, and CT abdomen and pelvis showing trace fluid adjacent to the pancreatic tail and upper mesenteric lymph nodes which may suggest any pancreatitis or enteritis. Hospitalist service was contacted to evaluate for hospitalization. Allergies No Known Allergies Allergy (Unverified 09/03/20 15:18) Home Medications: Codeine/APAP [Tylenol #3*] 1 tab PO Q12HP PRN #30 tab 09/05/20 Ciprofloxacin HCl [Cipro 500 MG Tablet] 500 mg PO BID #10 tab 01/19/21 metroNIDAZOLE [Flagyl] 500 mg PO Q8H #15 tablet 01/19/21 - Past Medical/Surgical History Diabetic: No -: Pancreatitis -: Alcohol abuse -: L knee surgery -: R knee surgery -: L eye surgery - Family History Family History: Reviewed- Non-Contributory - Social History Smoking Status: Current every day smoker Alcohol use: Yes CD- Drugs: No Caffeine use: Yes Review of Systems Other: Except as documented, all other systems reviewed and negative. Physical Examination - Physical Exam General: Alert, In no apparent distress, Oriented x3 HEENT: Atraumatic, Normocephalic, PERRLA, Mucous membr. moist/pink, EOMI, Sclerae nonicteric Neck: Supple, JVD not distended Respiratory: Clear to auscultation bilaterally, Normal air movement Cardiovascular: No edema, Regular rate/rhythm, Normal S1 S2 Capillary refill: <2 Seconds Gastrointestinal: Normal bowel sounds, Soft and benign, Non-distended, No tenderness, No masses, No rebound, No guarding Musculoskeletal: No swelling, No tenderness Integumentary: No rashes Neurological: Normal gait, Normal strength at 5/5 x4 extr - Studies Laboratory Data (last 24 hrs) 01/19/21 03:10: WBC 6.10, Hgb 13.8, Hct 40.8, Plt Count 258 01/19/21 03:10: Sodium 141, Potassium 3.9, BUN 11, Creatinine 0.62, Glucose 113 H, Total Bilirubin 0.3, AST 18, ALT 41, Alkaline Phosphatase 77, Lipase 125 - Diagnosis (Problem(s)) (1) Acute alcoholic pancreatitis Current Visit: No Status: Acute (2) Alcohol abuse Current Visit: No Status: Acute (3) Tobacco abuse Current Visit: No Status: Acute Treatment Summary: Patient treated with supportive measures with IV hydration. The nausea and vomiting resolved and abdominal pain significantly improved. Patient tolerated liquid diet. He is deemed clinically stable for discharge. He is recommended to eat only liquid diet for the next couple of days and then advance as tolerated. He can return to the ED should his symptoms worsen. Due to concern for enteritis patient is prescribed oral Flagyl and Cipro for possible infecti ous enteritis. Alcohol cessation is advised. - Disposition Disposition: ROUTINE DISCHARGE Condition: FAIR Prescriptions: Ciprofloxacin HCl [Cipro 500 MG Tablet] 500 mg PO BID #10 tab metroNIDAZOLE [Flagyl] 500 mg PO Q8H #15 tablet Followup: NONE,NONE [Primary Care Provider] - (within 1 to 2 weeks) Diet: Regular
[2021-01-19 11:52] VITALS: TEMP 98.6
[2021-01-19 12:02] VITALS: BP 121/89; O2SAT 96
--- NOTE | 2021-01-21 05:18 | EKG ---
Test Date: 2021-01-19 Test Time: 04:03:30 [place]: LYNETTE MEASUREMENT RESULTS: Intervals: Rate: 78 IN: 144 QRSD: 84 QT: 368 QTc: 419 [place]: P: 72 IN: 144 QRS: 53 T: 49 INTERPRETIVE STATEMENTS: Normal sinus rhythm Normal ECG No previous ECG available for comparison Electronically Signed On 01-21-21 05:12:05 MEMBER SERVICE SPECIALIST by Eddie Vu
== END 2021-01-19 11:41 | disposition home or self-care (01) ==
LOC: ER 02:18 → ERHOLD 10:57
PROVIDERS: ADMIT Internal Medicine; ATTEND Internal Medicine
DX: K85.20 Alcohol induced acute pancreatitis without necrosis or infection (principal); F17.210 Nicotine dependence, cigarettes, uncomplicated; F10.10 Alcohol abuse, uncomplicated; Y90.3 Blood alcohol level of 60-79 mg/100 ml
CPT/HCPCS: 36415; 74177; 80048; 80076; 80307; 80320; 81003; 83690; 85025; 93005; 96361; 96374; 96375; 99285; G0378; J2405; J2765; J7030; Q9967

== ENCOUNTER 2021-03-02 16:05 | Inpatient (IN) | payer SELFPAY ==
--- OUTSIDE RECORDS SUMMARY | 2021-03-02 16:08 | XMS REPORT | Continuity of Care Document ---
:1975 Author Organization [facility] t Address [address] [place] [address] Care Team Providers Name Role Phone Constantino Ash NP Attending Clinician Problems This patient has no known problems. Allergies, Adverse Reactions, Alerts This patient has no known allergies or adverse reactions. Medications This patient has no known medications. Procedures This patient has no known procedures. Encounters Start End Encounter Admission Attending Care Care Encounter Source Date/Time Date/Time Type Type Clinicians Facility Department ID 2021-03-01 2021-03-01 [id number] 14:29:00 19:20:00 Gini Palacios [id number] [place] [id number] [place] [id number] Results This patient has no known results.
[2021-03-02 19:24] LABS: Absolute Lymphocytes (CBC) 1.3 K/uL (0.7-4.9); Basophils % 0.1 % (0-1.3); Hematocrit 39.2 % (39.6-49.0); Lymphocytes % 9.7 % (15.3-44.8); MPV 6.2 fL (7.6-11.3); RBC Red Blood Cell Count 4.11 M/uL (4.33-5.43)
[2021-03-02] MEDS ORDERED: ONDANSETRON 4 MG/2 ML VIAL ONE (19:35)
[2021-03-02] MEDS ORDERED: MORPHINE 4 MG/ML SYR ONE (19:35)
[2021-03-02] MEDS ORDERED: NA CHLORIDE 0.9% 1,000 ML ONE (19:35)
[2021-03-02 19:41] LABS: ALT/SGPT 40 U/L (12-78); AST/SGOT 17 U/L (15-37); Alkaline Phosphatase 89 U/L (45-117); BUN Blood Urea Nitrogen 8 mg/dL (7-18); Bicarbonate 28 mmol/L (21-32); Bilirubin Direct 0.2 mg/dL (0-0.2); Bilirubin Total 0.6 mg/dL (0.2-1.0); Glucose Level 98 mg/dL (74-106); Lipase 516 U/L (73-393); Protein, Total 7.6 g/dL (6.4-8.2); Sodium Level 138 mmol/L (136-145)
[2021-03-02] MEDS ORDERED: HYDROMORPHONE HCL 1 MG/ML INJ ONE (20:33)
--- NOTE | 2021-03-02 20:38 | RAD REPORT ---
EXAM DESCRIPTION: US - Abdomen Exam Limited - 03/02/2021 8:26 pm CLINICAL HISTORY: abdominal pain COMPARISON: Abdomen Exam Limited dated 09/17/2020 FINDINGS: Mild gallbladder distention. The gallbladder demonstrates no gallstones. No pericholecysti c fluid or gallbladder wall thickening. The common bile duct is upper limit of normal in size measuri ng 6 mm. The liver demonstrates no findings of intrahepatic biliary dilatation. IMPRESSION: Negative for gallstones. Mild gallbladder distention.
--- NOTE | 2021-03-02 20:40 | RAD REPORT ---
EXAM DESCRIPTION: CTAbdomen Pelvis W Contrast - 03/02/2021 8:31 pm CLINICAL HISTORY: Abdominal pain. abdominal pain COMPARISON: Abdomen Pelvis W Contrast dated 01/19/2021; Abdomen Pelvis W Contrast dated 09/03/2020 TECHNIQUE: Biphasic CT imaging of the abdomen and pelvis was performed with 100 ml non-ionic IV cont rast. All CT scans are performed using dose optimization technique as appropriate and may include automated exposure control or mA/KV adjustment according to patient size. FINDINGS: The lung bases are clear.Small hiatal hernia. The liver, spleen, adrenal glands and kidneys are within normal limits. Mild inflammation is seen in the region the pancreatic head and uncinate process as well as the duodenal C-loop compatible with mi ld pancreatitis. No pseudocyst, pancreatic necrosis or portal vein thrombosis. No bowel obstruction, free air, free fluid or abscess. The appendix is normal. No evidence of signi ficant lymphadenopathy. No suspicious bony findings. IMPRESSION: Mild acute pancreatitis is suspected.
--- NOTE | 2021-03-02 20:47 | EDPHYS ---
Physician Documentation [facility] Name: Omar Johnson Age: 45 yrs Sex: Male : 1975 Arrival Date: 03/02/2021 Time: 16:06 Bed 17 Private MD: ED Physician Koby Goodson HPI: 03/02 19:11 This 45 yrs old Male presents to ER via Ambulatory with complaints of jmm Abdominal Pain, Shortness Of Breath. 19:11 The patient presents with abdominal pain. Onset: The symptoms/episode began/occurred jmm gradually, today, 1 day(s) ago. The symptoms do not radiate. Associated signs and symptoms: Pertinent positives: nausea and vomiting. The symptoms are described as achy. Modifying factors: The symptoms are alleviated by nothing, the symptoms are aggravated by nothing. This is a 45 year old male with a history of pancreatitis that presents to the ED with complaints of abdominal pain, vomiting beginning yesterday. Seen at [email or web address]], lipase levels were elevated at the time. Prescribed oral pain medication. Pain returned today 4 hours ago.. Historical: - Allergies: 16:51 No Known Allergies; iw - Home Meds: 16:51 Dicyclomine Oral [Active]; Promethazine Oral [Active]; Tylenol #3 Oral [Active]; iw - PMHx: 16:51 Pancreatitis; iw - PSHx: 16:51 eye; Knee surgery; iw - Immunization history:: Adult Immunizations not up to date. - Social history:: Smoking status: Patient reports the use of cigarette tobacco products, denies chronic smoking, but will smoke occasionally. ROS: 19:11 Constitutional: Negative for fever, chills, and weight loss, Cardiovascular: Negative jmm for chest pain, palpitations, and edema, Respiratory: Negative for shortness of breath, cough, wheezing, and pleuritic chest pain. 19:11 Abdomen/GI: Positive for abdominal pain. 19:11 All other systems are negative. Exam: 19:11 Constitutional: This is a well developed, well nourished patient who is awake, alert, jmm and in no acute distress. Head/Face: atraumatic. Eyes: EOMI, no conjunctival erythema appreciated ENT: Moist Mucus Membranes Neck: Trachea midline, Supple Chest/axilla: Normal chest wall appearance and motion. Cardiovascular: Regular rate and rhythm. No edema appreciated Respiratory: Normal respirations, no respiratory distress appreciated 19:11 Back: Normal ROM Skin: General appearance color normal MS/ Extremity: Moves all extremities, no obvious deformities appreciated, no edema noted to the lower extremities Neuro: Awake and alert, normal gait Psych: Behavior is normal, Mood is normal, Patient is cooperative and pleasant 19:11 Abdomen/GI: Inspection: abdomen appears normal, Bowel sounds: normal, Palpation: soft, moderate abdominal tenderness, in the epigastric area. Vital Signs: 16:49 BP 154 / 111; Pulse 89; Resp 16; Temp 97.9; Pulse Ox 100% on R/A; Weight 72.57 kg; iw Height 5 ft. 9 in. (175.26 cm); Pain 10/10; 19:11 BP 142 / 96; Pulse 69; Resp 16; Pulse Ox 96% ; sf 19:30 BP 147 / 102; Pulse 69; Resp 16; Pulse Ox 99% ; sf 20:10 BP 155 / 102; Pulse 70; Resp 16; Pulse Ox 100% ; sf 20:40 BP 138 / 79; Pulse 72; Resp 14; Pulse Ox 100% ; sf 21:00 BP 140 / 91; Pulse 76; Resp 16; Pulse Ox 100% ; sf 21:30 BP 144 / 97; Pulse 77; Resp 16; Pulse Ox 100% ; sf 22:00 BP 161 / 99; Pulse 66; Resp 16; Pulse Ox 98% ; sf 16:49 Body Mass Index 23.63 (72.57 kg, 175.26 cm) iw MDM: 19:02 Patient medically screened. [facility] 19:14 Data reviewed: vital signs, nurses notes. [facility] 20:45 Counseling: I had a detailed discussion with the patient and/or guardian regarding: the [facility] historical points, exam findings, and any diagnostic results supporting the discharge/admit diagnosis, lab results, radiology results, the need for further work-up and treatment in the hospital. ED course: I discussed the patient with Naman Jane whom accepted the patient to Dr. Gilma ellis. . 03/02 18:58 Order name: Basic Metabolic Panel [facility] 03/02 18:58 Order name: CBC with Diff; Complete Time: 19:35 [facility] 03/02 18:58 Order name: Hepatic Function [facility] 03/02 18:58 Order name: Lipase [facility] 03/02 20:49 Order name: COVID-19 : Document "Date of Symptom Onset" if Symptomatic. [facility] 03/02 20:50 Order name: COVID-19 : Document "Date of Symptom Onset" if Symptomatic. [facility] 03/02 23:42 Order name: Urinalysis [facility] 03/03 00:12 Order name: Lactic Dehydrogenase EDMT 03/03 00:12 Order name: C-Reactive Protein EDMT 03/03 00:12 Order name: T4 Free EDMT 03/03 00:12 Order name: Amylase EDMT 03/03 00:12 Order name: Thyroid Stimulating Hormone [facility] 03/03 05:52 Order name: CBC with Automated Diff EDMT 03/03 06:10 Order name: Protime (+INR) [facility] 03/02 18:58 Order name: IV Saline Lock; Complete Time: 19:24 [facility] 03/02 18:58 Order name: Labs collected and sent; Complete Time: 19:24 [facility] 03/02 19:49 Order name: US Abdomen Limited; Complete Time: 20:42 [facility] 03/02 19:50 Order name: CT Abd/Pelvis - IV Contrast Only; Complete Time: 20:42 [facility] 03/03 06:10 Order name: PTT, Activated Partial Thromb EDMT 03/03 06:30 Order name: Comprehensive Metabolic Panel [facility] 03/03 06:30 Order name: Phosphorus [facility] 03/03 06:30 Order name: Lipid Profile [facility] 03/03 06:30 Order name: Magnesium [facility] 03/03 11:57 Order name: Basic Metabolic Panel [facility] 03/03 11:57 Order name: Lipase EDMT Administered Medications: 19:20 Drug: NS 0.9% 1000 ml Route: IV; Rate: 1 bolus; Site: right antecubital; sf 20:30 Follow up: IV Status: Completed infusion; IV Intake: 1000ml sf 20:30 Follow up: Response: No adverse reaction sf 19:21 Drug: morphine 4 mg Route: IVP; Site: right antecubital; sf 19:48 Follow up: Response: No adverse reaction; Pain is unchanged, physician notified sf 19:21 Drug: Zofran (Ondansetron) 4 mg Route: IVP; Site: right antecubital; sf 19:48 Follow up: Response: No adverse reaction sf 20:16 Drug: Dilaudid (HYDROmorphone) 1 mg Route: IVP; Site: right antecubital; sf 20:59 Follow up: Response: No adverse reaction; Pain is decreased sf Disposition: 03/03 19:06 Co-signature as Attending Physician, Koby Goodson MD. rn Disposition: 03/02/21 20:47 Hospitalization ordered by Deanna Salamanca for Observation. Preliminary diagnosis is Acute pancreatitis. - Bed requested for Telemetry/MedSurg (observation). - Status is Observation. jd3 - Condition is Stable. - Problem is an acute exacerbation. - Symptoms have improved. Signatures: Dispatcher [employer] EDMS Vanessa Benitez, RN RN Sher Gayle PA PA [facility] Angely Dahl, RN CLARIBEL Koby Goodson MD MD rn Garcia, Cindy, RN RN cg Davies, Jonathon, RN RN jGennaro Mckeon RN RN sf Corrections: (The following items were deleted from the chart) 03/02 22:13 20:47 Hospitalization Ordered by Deanna Salamanca MD for Observation. Preliminary cg diagnosis is Acute pancreatitis. Bed requested for Telemetry/MedSurg (observation). Status is Observation. Condition is Stable. Problem is an acute exacerbation. Symptoms have improved. [facility] 03/03 15:58 03/02 22:13 03/02/2021 20:47 Hospitalization Ordered by Deanna Salamanca MD for dw Observation. Preliminary diagnosis is Acute pancreatitis. Bed requested for [facility] ER HOLD. Status is Observation. Condition is Stable. Problem is an acute exacerbation. Symptoms have improved. 03/03 17:21 15:58 03/02/2021 20:47 Hospitalization Ordered by Deanna Salamanca MD for Observation. jd3 Preliminary diagnosis is Acute pancreatitis. Bed requested for Telemetry/MedSurg (observation). Status is Observation. Condition is Stable. Problem is an acute exacerbation. Symptoms have improved. dw
--- NOTE | 2021-03-02 20:47 | ER ---
Nurse's Notes [facility] Name: Omar Johnson Age: 45 yrs Sex: Male : 1975 Arrival Date: 03/02/2021 Time: 16:06 Bed 17 Private MD: Diagnosis: Acute pancreatitis Presentation: 03/02 16:49 Chief complaint: Patient states: right sided abd pain and back pain X 2days, hx of iw pancreatitis, no vomiting , +nausea due to pain. Coronavirus screen: At this time, the client does not indicate any symptoms associated with coronavirus-19. Ebola Screen: Patient negative for fever greater than or equal to 101.5 degrees Fahrenheit, and additional compatible Ebola Virus Disease symptoms Patient denies exposure to infectious person. Patient denies travel to an Ebola-affected area in the 21 days before illness onset. No symptoms or risks identified at this time. Initial Sepsis Screen: Does the patient meet any 2 criteria? No. Patient's initial sepsis screen is negative. Does the patient have a suspected source of infection? No. Patient's initial sepsis screen is negative. Risk Assessment: Do you want to hurt yourself or someone else? Patient reports no desire to harm self or others. Onset of symptoms was February 28, 2021. 16:49 Method Of Arrival: Ambulatory iw 16:49 Acuity: AMOR 3 iw Historical: - Allergies: 16:51 No Known Allergies; iw - Home Meds: 16:51 Dicyclomine Oral [Active]; Promethazine Oral [Active]; Tylenol #3 Oral [Active]; iw - PMHx: 16:51 Pancreatitis; iw - PSHx: 16:51 eye; Knee surgery; iw - Immunization history:: Adult Immunizations not up to date. - Social history:: Smoking status: Patient reports the use of cigarette tobacco products, denies chronic smoking, but will smoke occasionally. Screenin:10 Abuse screen: Denies threats or abuse. Denies injuries from another. Nutritional sf screening: No deficits noted. Tuberculosis screening: No symptoms or risk factors identified. Fall Risk None identified. IV access (20 points). Total Daniel Fall Scale indicates No Risk (0-24 pts). Assessment: 19:10 General: Appears uncomfortable, Behavior is calm, cooperative. Pain: Complains of pain sf in epigastric area and right upper quadrant Pain currently is 8 out of 10 on a pain scale. Neuro: No deficits noted. Level of Consciousness is awake, alert, Oriented to person, place, time, situation. Cardiovascular: Reports nausea, Denies chest pain, diaphoresis, shortness of breath, vomiting, Patient's skin is warm and dry. Rhythm is sinus rhythm. Respiratory: No deficits noted. Airway is patent Respiratory effort is even, unlabored, Respiratory pattern is regular, symmetrical. GI: Abdomen is non-distended, Reports upper abdominal pain, nausea, Patient currently denies constipation, diarrhea, vomiting. : No deficits noted. No signs and/or symptoms were reported regarding the genitourinary system. Derm: No deficits noted. No signs and/or symptoms reported regarding the dermatologic system. Musculoskeletal: No deficits noted. No signs and/or symptoms reported regarding the musculoskeletal system. 19:48 Reassessment: No changes from previously documented assessment. Patient and/or family sf updated on plan of care and expected duration. Pain level reassessed. Patient is alert, oriented x 3, equal unlabored respirations, skin warm/dry/pink. 20:44 Reassessment: Patient appears in no apparent distress at this time. Patient and/or sf family updated on plan of care and expected duration. Pain level reassessed. Patient is alert, oriented x 3, equal unlabored respirations, skin warm/dry/pink. Patient states feeling better. Patient states symptoms have improved. 20:58 Reassessment: information given to Anette via phone, approved to give information by sf patient. 21:58 Reassessment: Patient appears in no apparent distress at this time. Patient and/or sf family updated on plan of care and expected duration. Pain level reassessed. Patient is alert, oriented x 3, equal unlabored respirations, skin warm/dry/pink. Patient refuses COVID test stating, "I just had one yesterday." Has paper showing negative COVID test yesterday from [facility], copy made and placed on chart. 22:55 Reassessment: Patient appears in no apparent distress at this time. No changes from sf previously documented assessment. Patient and/or family updated on plan of care and expected duration. Pain level reassessed. Patient is alert, oriented x 3, equal unlabored respirations, skin warm/dry/pink. Patient admitted, now ED hold, see [facility] charting. Vital Signs: 16:49 BP 154 / 111; Pulse 89; Resp 16; Temp 97.9; Pulse Ox 100% on R/A; Weight 72.57 kg; iw Height 5 ft. 9 in. (175.26 cm); Pain 10/10; 19:11 BP 142 / 96; Pulse 69; Resp 16; Pulse Ox 96% ; sf 19:30 BP 147 / 102; Pulse 69; Resp 16; Pulse Ox 99% ; sf 20:10 BP 155 / 102; Pulse 70; Resp 16; Pulse Ox 100% ; sf 20:40 BP 138 / 79; Pulse 72; Resp 14; Pulse Ox 100% ; sf 21:00 BP 140 / 91; Pulse 76; Resp 16; Pulse Ox 100% ; sf 21:30 BP 144 / 97; Pulse 77; Resp 16; Pulse Ox 100% ; sf 22:00 BP 161 / 99; Pulse 66; Resp 16; Pulse Ox 98% ; sf 16:49 Body Mass Index 23.63 (72.57 kg, 175.26 cm) iw ED Course: 16:06 Patient arrived in ED. as 16:50 Triage completed. iw 16:51 Arm band placed on. iw 18:45 Sher Luna PA is PHCP. [facility] 18:45 Koby Goodson MD is Attending Physician. [facility] 19:09 Gennaro Kamara, CLARIBEL is Primary Nurse. sf 19:10 Patient has correct armband on for positive identification. Placed in gown. Bed in low sf position. Call light in reach. Side rails up X 1. teletypesetter monitor on. Pulse ox on. NIBP on. Door closed. Noise minimized. Visitors limited. Lights dimmed. Warm blanket given. Verbal reassurance given. 19:10 Initial lab(s) drawn, by me, sent to lab. Inserted saline lock: 20 gauge in right sf antecubital area, using aseptic technique. Blood collected. 20:16 US Abdomen Limited Sent. sf 20:23 CT Abd/Pelvis - IV Contrast Only Sent. sf 20:27 US Abdomen Limited In Process Unspecified. EDMS 20:31 CT Abd/Pelvis - IV Contrast Only In Process Unspecified. EDMS 20:46 Deanna Salamanca MD is Hospitalizing Provider. jmm 22:55 Awaiting bed assignment. sf 22:55 No provider procedures requiring assistance completed. IV is patent, is intact, with sf fluids infusing freely, with good blood return, Patient admitted, IV remains in place. Administered Medications: 19:20 Drug: NS 0.9% 1000 ml Route: IV; Rate: 1 bolus; Site: right antecubital; sf 20:30 Follow up: IV Status: Completed infusion; IV Intake: 1000ml sf 20:30 Follow up: Response: No adverse reaction sf 19:21 Drug: morphine 4 mg Route: IVP; Site: right antecubital; sf 19:48 Follow up: Response: No adverse reaction; Pain is unchanged, physician notified sf 19:21 Drug: Zofran (Ondansetron) 4 mg Route: IVP; Site: right antecubital; sf 19:48 Follow up: Response: No adverse reaction sf 20:16 Drug: Dilaudid (HYDROmorphone) 1 mg Route: IVP; Site: right antecubital; sf 20:59 Follow up: Response: No adverse reaction; Pain is decreased sf Intake: 20:30 IV: 1000ml; Total: 1000ml. sf Outcome: 20:47 Decision to Hospitalize by Provider. darion 22:55 Admitted to ER Hold. Please see [facility] for further documentation. sf 22:55 Condition: stable 22:55 Instructed on the need for admit. 03/03 17:21 Patient left the ED. clarke Signatures: Dispatcher [employer] EDMS Sher Luna PA PA jmm Martinez, Amelia as Williams, Irene, RN RN iw Davies, Jonathon, RN RN jd3 Fitzpatrick, Steven, RN RN sf
[2021-03-02] MEDS ORDERED: ONDANSETRON 4 MG/2 ML VIAL IV PRN (22:54)
[2021-03-02] MEDS: NA CHLORIDE 0.9% 1,000 ML IV SCH (22:54)
[2021-03-02] MEDS ORDERED: MORPHINE 4 MG/ML SYR IV PRN (22:54)
[2021-03-02] MEDS ORDERED: ACETAMINOPHEN 500 MG TAB PO PRN (22:54)
[2021-03-02 23:13] VITALS: BMI 23.6
[2021-03-02] MEDS ORDERED: HYDROMORPHONE HCL 0.5 MG/0.5 ML INJ IV ONE ×2 (23:26→23:56)
[2021-03-02 23:40] LABS: Urine Appearance CLEAR (Clear); Urine Bilirubin NEGATIVE (Negative); Urine Blood NEGATIVE (Negative); Urine Color YELLOW (Yellow); Urine Glucose NEGATIVE (Negative); Urine Protein NEGATIVE (Negative); Urine Specific Gravity 1.025 (1.005-1.030); Urine Urobilinogen 0.2 mg/dL (0.2-1.0); Urine pH 5.5 (5.0-7.0)
[2021-03-02 23:41] LABS: Urine Microscopic Reflex NO UMIC
[2021-03-02] MEDS ORDERED: HYDROMORPHONE HCL 0.5 MG/0.5 ML INJ ONE (23:57)
[2021-03-03 00:11] LABS: Amylase 81 U/L (25-115)
[2021-03-03] MEDS ORDERED: HYDROMORPHONE HCL 0.5 MG/0.5 ML INJ ONE (00:56)
[2021-03-03] MEDS: NICOTINE 14 MG/PAT TD SCH ×3 (02:00→20:57)
[2021-03-03] MEDS ORDERED: NICOTINE 14 MG/PAT TD ONE (02:16)
[2021-03-03] MEDS ORDERED: FENTANYL CITR 100 MCG/2 ML IV ONE (02:30)
[2021-03-03] MEDS ORDERED: FENTANYL CITR 100 MCG/2 ML ONE (03:06)
[2021-03-03] MEDS ORDERED: HYDROMORPHONE HCL 1 MG/ML INJ IV PRN (04:00)
[2021-03-03] MEDS ORDERED: HYDROMORPHONE HCL 1 MG/ML INJ ONE ×4 (04:15→16:30)
--- NOTE | 2021-03-03 05:22 | P.HP ---
Certification for Inpatient Patient admitted to: Inpatient With expected LOS: >2 Midnights Patient will require the following post-hospital care: None Practitioner: I am a practitioner with admitting privileges, knowledge of patient current condition, hospital course, and medical plan of care. Services: Services provided to patient in accordance with Admission requirements found in Title 42 Section 412.3 of the Code of Federal Regulations <Naman Jane - Last Filed: 03/03/21 05:17> Patient History Date of Service: 03/03/21 Primary Care Provider: none Reason for admission: acute pancreatitis History of Present Illness: Mr. Johnson is a 45 yo male with pancreatitis, Beurger's dz, and psoriasis here today for 10/10 abdominal and back pain beginning Monday night. Says he cannot get comfortable in any position. He denies nausea and vomiting. He was recently sent home from [facility] for same complaints with pain medication because they did not have beds at the time. He has been admitted for acute pancreatitis before in the past. He smokes 1/[address] heavy drinker. CT Abdomen consistent with p ancreatitis. - Past Medical/Surgical History Has patient received pneumonia vaccine in the past: No Diabetic: No -: Pancreatitis -: Alcohol abuse -: L knee surgery -: R knee surgery -: L eye surgery - Social History Smoking Status: Current every day smoker Alcohol use: Yes CD- Drugs: No Caffeine use: Yes <Naman Jane - Last Filed: 03/03/21 05:17> Date of Service: 03/03/21 <Deanna Salamanca - Last Filed: 03/04/21 08:50> Allergies No Known Allergies Allergy (Unverified 09/03/20 15:18) Home Medications: NK [No Home Meds] 03/03/21 Review of Systems General: Unremarkable Eyes: Unremarkable ENT: Unremarkable Respiratory: Unremarkable Cardiovascular: Unremarkable Gastrointestinal: Abdominal Pain, As per HPI Genitourinary: Unremarkable Musculoskeletal: Back Pain, As per HPI Integumentary: Unremarkable Neurological: Unremarkable Lymphatics: Unremarkable <Naman Jane - Last Filed: 03/03/21 05:17> Physical Examination - Vital Signs Temperature: 97.8 F Blood Pressure: 120/69 Pulse: 92 Respirations: 16 Pulse Ox (%): 100 - Physical Exam General: Alert, In no apparent distress, Oriented x3, Cooperative HEENT: Atraumatic, Normocephalic, PERRLA, Mucous membr. moist/pink, EOMI, Sclerae nonicteric Neck: Supple, 2+ carotid pulse no bruit, JVD not distended, No Thyromegaly, No LAD Respiratory: Clear to auscultation bilaterally, Normal air movement Cardiovascular: No edema, Normal pulses, Regular rate/rhythm, Normal S1 S2, No gallops, No rubs, No murmurs Capillary refill: <2 Seconds Gastrointestinal: Normal bowel sounds, Soft and benign, Non-distended, No ascites, No masses, No rebound, Tenderness, Guarding Musculoskeletal: No clubbing, No swelling, No contractures, No erythema, No tenderness, No warmth Integumentary: No breakdown, No significant lesion, No tenderness/swelling, No erythema, No warmth, No cyanosis, Rash(es) Neurological: Normal speech, Normal strength at 5/5 x4 extr, Normal tone, Sensation intact, Cranial nerves 3-12 intact, Normal affect Lymphatics: No axilla or inguinal lymphadenopathy - Studies Laboratory Data (last 24 hrs) 03/02/21 19:16: Amylase Cancelled, Lipase Cancelled 03/02/21 19:16: WBC 13.20 H, Hgb 13.7, Hct 39.2 L, Plt Count 271 03/02/21 19:16: Sodium 138, Potassium 4.0, BUN 8, Creatinine 0.75, Glucose 98, Total Bilirubin 0.6, AST 17, ALT 40, Alkaline Phosphatase 89, Amylase 81, Lipase 516 H <Naman Jane - Last Filed: 03/03/21 05:17> Assessment and Plan - Plan Assessment acute on chronic pancreatitis without gallstones Buerger's disease psoriasis tobacco use disorder Plan continue with IVF, O2 prn, pain and nausea control NPO overnight amylase, lipase 516, LDH, CRP, lipid panel and coags pending nicotine patch Discharge Plan: Home Plan to discharge in: 24 Hours - Advance Directives Does patient have a Living Will: No Does patient have a Durable POA for Healthcare: No - Code Status/Comfort Care Code Status Assessed: Yes (full code ) Critical Care: No Time Spent Managing Pts Care (In Minutes): 70 <Naman Jane - Last Filed: 03/03/21 05:17> Date of Service: 03/03/21 Agree with findings as mentioned above. Continue with plan of care as mentioned for pancreatitis. <Deanna Salamanca - Last Filed: 03/04/21 08:50>
[2021-03-03 05:46] LABS: Absolute Lymphocytes (CBC) 1.2 K/uL (0.7-4.9); Basophils % 0.4 % (0-1.3); Hematocrit 40.3 % (39.6-49.0); Lymphocytes % 11.6 % (15.3-44.8); MPV 6.6 fL (7.6-11.3); RBC Red Blood Cell Count 4.17 M/uL (4.33-5.43)
[2021-03-03 06:09] LABS: Protime INR 1.04
[2021-03-03 06:29] LABS: ALT/SGPT 36 U/L (12-78); AST/SGOT 14 U/L (15-37); Albumin 3.6 g/dL (3.4-5.0); Alkaline Phosphatase 81 U/L (45-117); BUN Blood Urea Nitrogen 6 mg/dL (7-18); Bicarbonate 24 mmol/L (21-32); Bilirubin Total 0.6 mg/dL (0.2-1.0); Glucose Level 87 mg/dL (74-106); HDL Cholesterol 41 mg/dL (40-60); LDL Cholesterol, Calculated 91 (<130); Magnesium 1.9 mg/dL (1.8-2.4); Phosphorus 2.7 mg/dL (2.5-4.9); Potassium 3.9 mmol/L (3.5-5.1); Sodium Level 137 mmol/L (136-145)
[2021-03-03] MEDS: NA CHLORIDE 0.9% 1,000 ML IV SCH ×5 (06:54→22:29)
[2021-03-03] MEDS ORDERED: NA CHLORIDE 0.9% 1,000 ML ONE ×2 (07:44→13:05)
[2021-03-03] MEDS: ENOXAPARIN 40 MG/0.4 ML SQ SCH (08:48)
[2021-03-03] MEDS: HYDROMORPHONE HCL 1 MG/ML INJ IV PRN ×5 (08:49→22:30)
[2021-03-03] MEDS ORDERED: ENOXAPARIN 40 MG/0.4 ML SQ ONE (08:51)
[2021-03-03] MEDS ORDERED: NICOTINE 14 MG/PAT TD SCH (09:00)
[2021-03-03] MEDS ORDERED: MEPERIDINE HCL 25 MG/ML SYR IV ONE (09:54)
[2021-03-03] MEDS ORDERED: LORazepam 2 MG/ML VIAL IV ONE (09:54)
[2021-03-03] MEDS ORDERED: LORazepam 2 MG/ML VIAL ONE (10:49)
[2021-03-03] MEDS ORDERED: MEPERIDINE HCL 25 MG/ML SYR ONE (10:49)
[2021-03-03 11:57] LABS: BUN Blood Urea Nitrogen 5 mg/dL (7-18); Bicarbonate 25 mmol/L (21-32); Glucose Level 74 mg/dL (74-106); Lipase 2113 U/L (73-393); Potassium 3.7 mmol/L (3.5-5.1); Sodium Level 135 mmol/L (136-145)
[2021-03-03] MEDS ORDERED: ONDANSETRON 4 MG/2 ML VIAL ONE (12:58)
[2021-03-04] MEDS: HYDROMORPHONE HCL 1 MG/ML INJ IV PRN ×3 (01:31→08:33)
[2021-03-04] MEDS: NA CHLORIDE 0.9% 1,000 ML IV SCH ×4 (03:32→13:43)
[2021-03-04 06:05] LABS: BUN Blood Urea Nitrogen 6 mg/dL (7-18); Bicarbonate 22 mmol/L (21-32); Glucose Level 56 mg/dL (74-106); Lipase 267 U/L (73-393); Potassium 3.5 mmol/L (3.5-5.1); Sodium Level 137 mmol/L (136-145)
[2021-03-04] MEDS ORDERED: KCL 20 MEQ/100 mL IVPB 20 MEQ/100 ML BAG IV SCH (07:00)
[2021-03-04] MEDS: ENOXAPARIN 40 MG/0.4 ML SQ SCH (08:33)
[2021-03-04 08:45] VITALS: O2SAT 96
--- NOTE | 2021-03-04 08:52 | P.PN ---
Subjective Date of Service: 03/04/21 Pain is improved. Start on clear liquid diet. Lipase is within normal limits. Review of Systems 10-point ROS is otherwise unremarkable Physical Examination - Vital Signs Temperature: 97.0 F Blood Pressure: 122/80 Pulse: 88 Respirations: 16 Pulse Ox (%): 96 - Physical Exam General: Alert, In no apparent distress HEENT: Atraumatic, PERRLA, EOMI Neck: Supple, JVD not distended Respiratory: Clear to auscultation bilaterally, Normal air movement Cardiovascular: Regular rate/rhythm, Normal S1 S2 Gastrointestinal: Normal bowel sounds, No tenderness Musculoskeletal: No tenderness Integumentary: No rashes Neurological: Normal speech, Normal tone, Normal affect Lymphatics: No axilla or inguinal lymphadenopathy - Studies Medications List Reviewed: Yes Assessment & Plan - Problems (Diagnosis) (1) Acute alcoholic pancreatitis Current Visit: No Status: Acute (2) Alcohol abuse Current Visit: No Status: Acute - Plan 1. Continue with IV hydration 2. Dental Office Coordinator regarding alcohol cessation 3. Continue with pain control 4. Continue with clear liquid diet 5. GI follow-up 6. Serial H&H, and we will monitor CBC, BMP, LFTs and lipase along with electrolytes. 7. GI and DVT prophylaxis - Advance Directives Does patient have a Living Will: No Does patient have a Durable POA for Healthcare: No
[2021-03-04 16:13] VITALS: BP 122/74; TEMP 97.1
--- NOTE | 2021-03-22 04:45 | P.DS ---
Discharge Date: 03/04/21 Primary Care Provider: none Disposition: ROUTINE DISCHARGE Discharge Condition: GOOD Reason for Admission: acute pancreatitis - Problems (1) Acute alcoholic pancreatitis Status: Acute (2) Alcohol abuse Status: Acute Brief History of Present Illness: Mr. Johnson is a 45 yo male with pancreatitis, Beurger's dz, and psoriasis here today for 10/10 abdominal and back pain beginning Monday night. Says he cannot get comfortable in any position. He denies nausea and vomiting. He was recently sent home from [facility] for same complaints with pain medication because they did not have beds at the time. He has been admitted for acute pancreatitis before in the past. He smokes 1/[address] ppd[address] Former heavy drinker. CT Abdomen consistent with pancreatitis. Hospital Course: Patient abdominal pain is improved. Patient was started on a clear liquid diet. Patient was advised to refrain from alcohol abuse. Patient was also advised monitor fat in the diet. At this time, patient stable for discharge home. Vital Signs/Physical Exam: Temp Pulse Resp BP Pulse Ox 97.1 F 75 16 122/74 95 03/04/21 16:00 03/04/21 16:00 03/04/21 16:00 03/04/21 16:00 03/04/21 16:00 General: Alert, In no apparent distress, Oriented x3 Laboratory Data at Discharge: WBC 10.70 K/uL (4.3-10.9) D 03/03/21 05:00 Hgb 13.5 g/dL (13.6-17.9) L 03/03/21 05:00 Hct 40.3 % (39.6-49.0) 03/03/21 05:00 Plt Count 259 K/uL (152-406) 03/03/21 05:00 PT 12.0 SECONDS (9.5-12.5) 03/03/21 05:00 INR 1.04 03/03/21 05:00 APTT 31.0 SECONDS (24.3-36.9) 03/03/21 05:00 Sodium 137 mmol/L (136-145) 03/04/21 05:04 Potassium 3.6 mmol/L (3.5-5.1) 03/04/21 13:13 BUN 6 mg/dL (7-18) L 03/04/21 05:04 Creatinine 0.48 mg/dL (0.55-1.3) L 03/04/21 05:04 Glucose 56 mg/dL (74-106) L 03/04/21 05:04 Phosphorus 2.7 mg/dL (2.5-4.9) 03/03/21 05:00 Magnesium 1.9 mg/dL (1.8-2.4) 03/03/21 05:00 Total Bilirubin 0.6 mg/dL (0.2-1.0) 03/03/21 05:00 AST 14 U/L (15-37) L 03/03/21 05:00 ALT 36 U/L (12-78) 03/03/21 05:00 Alkaline Phosphatase 81 U/L (45-117) 03/03/21 05:00 Triglycerides 138 mg/dL (<150) 03/03/21 05:00 Cholesterol 160 mg/dL (<200) 03/03/21 05:00 HDL Cholesterol 41 mg/dL (40-60) 03/03/21 05:00 Cholesterol/HDL Ratio 3.90 03/03/21 05:00 Amylase 81 U/L (25-115) 03/02/21 19:16 Amylase Cancelled 03/02/21 19:16 Lipase 267 U/L (73-393) 03/04/21 05:04 Home Medications: Hydrocodone 10/APAP 325 [Lewis 10/325*] 1 tab PO Q6H PRN #30 tab 03/04/21 New Medications: Hydrocodone 10/APAP 325 [Lewis 10/325*] 1 tab PO Q6H PRN #30 tab PRN Reason: Pain Physician Discharge Instructions: OK TO DC IV AND DC HOME FOLLOW-UP WITH PRIMARY CARE PROVIDER IN 1-2 WEEKS FOLLOW-UP WITH CARDIOLOGY IN 1-2 WEEKS RETURN TO THE ER IF symptoms worsen CALL or TEXT DR. AGUERO AT [phone] IF ANY QUESTIONS REGARDING HOSPITAL STAY. PLEASE CALL THE FLOOR AT [phone] IF ANY MEDICATION OR NURSING QUESTIONS. Diet: LOW FAT Activity: Fall precautions Followup: NONE,NONE [Primary Care Provider] - Time spent managing pt's care (in minutes): 35
== END 2021-03-04 17:40 | disposition home or self-care (01) | DRG 440 ==
LOC: ER 16:05 → ERHOLD 21:45 → 2ND 03-03 16:33
PROVIDERS: ADMIT Hospitalist; ATTEND Hospitalist
DX: K85.20 Alcohol induced acute pancreatitis without necrosis or infection (principal); I73.1 Thromboangiitis obliterans [Buerger's disease]; L40.9 Psoriasis, unspecified; F10.10 Alcohol abuse, uncomplicated; F17.210 Nicotine dependence, cigarettes, uncomplicated; Z79.899 Other long term (current) drug therapy; Z20.822 Contact with and (suspected) exposure to COVID-19
CPT/HCPCS: 36415; 74177; 76705; 80048; 80053; 80061; 80076; 81003; 82150; 83615; 83690; 83735; 84100; 84132; 84439; 84443; 85025; 85610; 85730; 86140; 94760; 96361; 96374; 96375; 99285; J1170; J1650; J2175; J2405; J3010; J3480; J7030; Q9967

== ENCOUNTER 2021-09-24 11:09 | Emergency (ER) | payer SELFPAY ==
--- NOTE | 2021-09-24 12:13 | RAD REPORT ---
EXAM DESCRIPTION: RAD - Knee Left 3 View - 09/24/2021 11:45 am CLINICAL HISTORY: PAIN COMPARISON: No comparisons FINDINGS: No acute fractures seen. No dislocation or periosteal reaction. Plate and screw fixation o f the proximal tibia present from remote fracture repair. No hardware fracture. No migration or retra ction of the bone screw suspected. Patient does have advanced degenerative change in the lateral comp artment where there is joint space narrowing, marginal spurring and irregular contour to the tibial p lateau and the lateral femoral condyle. Less prominent medial compartment marginal spurring. There is spurring along the intercondylar notch. Patella femoral joint space within normal range.No significa nt joint effusions seen. No soft tissue abnormality. 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 The charito nt space is narrowed with irregular articular contours and marginal spurs. Surgical hardware is in place from remote proximal tibia fracture repair. No acute hardware finding. No No acute bone or joint finding seen.
--- NOTE | 2021-09-24 12:44 | EDPHYS ---
Physician Documentation [facility] Name: Omar Johnson Age: 46 yrs Sex: Male : 1975 Arrival Date: 09/24/2021 Time: 11:11 Bed 20 Private MD: ED Physician Macario Carlisle HPI: 09/24 13:41 This 46 yrs old Male presents to ER via Wheelchair with complaints of Knee kb Pain - swelling. 13:41 The patient presents with pain, swelling. The complaints affect the left knee. Context: kb The problem was sustained at home, resulted from an unknown cause, the patient can fully bear weight, the patient is able to ambulate, Problem is a result from a previous injury: Yes. Onset: The symptoms/episode began/occurred last week. Modifying factors: The symptoms are alleviated by nothing. the symptoms are aggravated by movement. Associated signs and symptoms: Pertinent positives: swelling, Pertinent negatives calf tenderness, fever, nausea, numbness, rash, tingling, vomiting, warmth, weakness. Treatment prior to arrival includes: no previous treatment. Severity of symptoms: At their worst the symptoms were moderate, in the emergency department the symptoms are unchanged. The patient has not experienced similar symptoms in the past. The patient has not recently seen a physician. Pt reports he had surgery on left knee years ago. States he has recently been having pain and swelling in the knee. Denies injury or trauma. States it feels like it gets locked up. Historical: - Allergies: 11:22 No Known Allergies; vg1 - PMHx: 11:22 Pancreatitis; Psoriasis; vg1 - PSHx: 11:22 Left Knee; vg1 - Immunization history:: Client reports having NOT received the Covid vaccine. - Social history:: Smoking status: Patient reports the use of cigarette tobacco products, smokes one-half pack cigarettes per day. ROS: 13:40 Constitutional: Negative for fever, chills, and weight loss. kb 13:40 MS/extremity: Positive for pain, swelling, tenderness, of the left knee. 13:40 All other systems are negative. Exam: 13:41 Constitutional: This is a well developed, well nourished patient who is awake, alert, kb and in no acute distress. Head/Face: Normocephalic, atraumatic. Respiratory: Respirations even and unlabored. No increased work of breathing, no retractions or nasal flaring. Skin: Warm, dry with normal turgor. Normal color. Neuro: Awake and alert, GCS 15, oriented to person, place, time, and situation. Moves all extremities. Normal gait. Psych: Awake, alert, with orientation to person, place and time. Behavior, mood, and affect are within normal limits. 13:41 Musculoskeletal/extremity: Extremities: grossly normal except: noted in the left knee: pain, swelling, ROM: intact in all extremities, Circulation is intact in all extremities. Sensation intact. Weight bearing: able to fully bear weight. Vital Signs: 11:21 BP 123 / 94; Pulse 98; Resp 16; Temp 98.5; Pulse Ox 96% ; Weight 72.12 kg; Height 5 ft. vg1 8 in. (172.72 cm); Pain 5/10; 12:22 BP 105 / 66; Pulse 72; Resp 17; Pulse Ox 94% ; vg1 11:21 Body Mass Index 24.18 (72.12 kg, 172.72 cm) vg1 MDM: 11:14 Patient medically screened. kb 12:23 Data reviewed: vital signs, nurses notes. Data interpreted: Pulse oximetry: on room air kb is 94 %. Interpretation: normal. Counseling: I had a detailed discussion with the patient and/or guardian regarding: the historical points, exam findings, and any diagnostic results supporting the discharge/admit diagnosis, radiology results, the need for outpatient follow up, a family practitioner, to return to the emergency department if symptoms worsen or persist or if there are any questions or concerns that arise at home. 09/24 11:18 Order name: Knee Left 3 View XRAY; Complete Time: 12:23 kb Administered Medications: No medications were administered Disposition: 14:19 Co-signature as Attending Physician, Macario Carlisle MD I agree with the assessment and kdr plan of care. Disposition Summary: 09/24/21 12:44 Discharge Ordered Location: Home kb Condition: Stable kb Diagnosis - Pain in left knee kb Followup: kb - With: Emergency Department - When: As needed - Reason: Worsening of condition Followup: kb - With: Private Physician - When: 2 - 3 days - Reason: Recheck today's complaints, Continuance of care, Re-evaluation by your physician Discharge Instructions: - Discharge Summary Sheet kb - Musculoskeletal Pain kb - Acute Knee Pain, Adult, [id number] kb Forms: - Medication Reconciliation Form kb - Thank You Letter kb - Antibiotic Education kb - Prescription Opioid Use kb Signatures: Dispatcher [employer] Trinity Monterroso, CONFERENCE AND EVENT ORGANISER-C CONFERENCE AND EVENT ORGANISER-Macario Lemon MD MD kdr Garcia, Victoria, RN RN vg1
--- NOTE | 2021-09-24 12:44 | ER ---
Nurse's Notes [facility] Name: Omar Johnson Age: 46 yrs Sex: Male : 1975 Arrival Date: 09/24/2021 Time: 11:11 Bed 20 Private MD: Diagnosis: Pain in left knee Presentation: 09/24 11:21 Chief complaint: Patient states: Pt states Left knee pain x1 week; appears to be vg1 swollen; states at times will lock up. Has a hx of Left knee sx in 2006. Coronavirus screen: Vaccine status: Patient reports being unvaccinated. Ebola Screen: Patient negative for fever greater than or equal to 101.5 degrees Fahrenheit, and additional compatible Ebola Virus Disease symptoms. Initial Sepsis Screen: Does the patient meet any 2 criteria? No. Patient's initial sepsis screen is negative. Does the patient have a suspected source of infection? No. Patient's initial sepsis screen is negative. Risk Assessment: Do you want to hurt yourself or someone else? Patient reports no desire to harm self or others. Onset of symptoms was September 17, 2021. 11:21 Method Of Arrival: Wheelchair vg1 11:21 Acuity: AMOR 4 vg1 Triage Assessment: 11:22 General: Appears in no apparent distress. uncomfortable, Behavior is calm, cooperative. vg1 Pain: Complains of pain in left knee Pain currently is 5 out of 10 on a pain scale. Pain began x1 week. EENT: No signs and/or symptoms were reported regarding the EENT system. Neuro: Level of Consciousness is awake, alert, obeys commands, Oriented to person, place, time, situation. Cardiovascular: Patient's skin is warm and dry. Respiratory: Airway is patent Respiratory effort is even, unlabored. GI: No signs and/or symptoms were reported involving the gastrointestinal system. : No signs and/or symptoms were reported regarding the genitourinary system. Derm: Skin is intact, is healthy with good turgor. Musculoskeletal: Circulation, motion, and sensation intact. Historical: - Allergies: : No Known Allergies; vg1 - PMHx: 11: Pancreatitis; Psoriasis; vg1 - PSHx: 11:22 Left Knee; vg1 - Immunization history:: Client reports having NOT received the Covid vaccine. - Social history:: Smoking status: Patient reports the use of cigarette tobacco products, smokes one-half pack cigarettes per day. Screenin:26 Abuse screen: Denies threats or abuse. Nutritional screening: No deficits noted. vg1 Tuberculosis screening: No symptoms or risk factors identified. Fall Risk No fall in past 12 months (0 pts). No secondary diagnosis (0 pts). No IV (0 pts). Ambulatory Aid- None/Bed Rest/Nurse Assist (0 pts). Gait- Impaired (20 pts.). Mental Status- Oriented to own ability (0 pts). Total Daniel Fall Scale indicates No Risk (0-24 pts). Assessment: 11:25 Reassessment: SEE TRIAGE. vg1 12:22 Reassessment: Patient appears in no apparent distress at this time. Pt is resting with vg1 eyes closed. Vital Signs: 11:21 BP 123 / 94; Pulse 98; Resp 16; Temp 98.5; Pulse Ox 96% ; Weight 72.12 kg; Height 5 ft. vg1 8 in. (172.72 cm); Pain 5/10; 12:22 BP 105 / 66; Pulse 72; Resp 17; Pulse Ox 94% ; vg1 11:21 Body Mass Index 24.18 (72.12 kg, 172.72 cm) vg1 ED Course: 11:11 Patient arrived in ED. as 11:14 Radha Galan, CLARIBEL is Primary Nurse. ss 11:14 Trinity Herrera FNP-C [facility]. kb 11:14 Macario Carlisle MD is Attending Physician. kb 11:22 Triage completed. vg1 11:22 Arm band placed on. vg1 11:26 Patient has correct armband on for positive identification. Bed in low position. Call vg1 light in reach. Side rails up X 1. 11:26 No provider procedures requiring assistance completed. Patient did not have IV access vg1 during this emergency room visit. 11:44 Knee Left 3 View XRAY In Process Unspecified. EDMS 12:19 Primary Nurse role handed off by Radha Galan, CLARIBEL vg1 12:19 Isabelle Murray, RN is Primary Nurse. vg1 Administered Medications: No medications were administered Outcome: 12:44 Discharge ordered by . kb 12:50 Discharged to home ambulatory. vg1 12:50 Condition: stable 12:50 Discharge instructions given to patient, Instructed on discharge instructions, follow up and referral plans. Demonstrated understanding of instructions, follow-up care. 12:50 Patient left the ED. vg1 Signatures: Dispatcher [employer] Trinity Monterroso, LUIS ALFREDO SCHAFER-Aparna Pizarro Shelby, RN RN ss Isabelle Murray RN RN vg1
[2021-09-24 12:57] VITALS: TEMP 98.5
[2021-09-24 12:58] VITALS: BP 105/66; O2SAT 94
--- OUTSIDE RECORDS SUMMARY | 2021-09-25 22:36 | XMS REPORT | Continuity of Care Document ---
:[address] [facility] t Address [address] [place] [address] Care Team Providers Name Role Phone Constantino Ash NP Attending Clinician Problems This patient has no known problems. Allergies, Adverse Reactions, Alerts Allergy Allergy Status Severity Reaction(s) Onset Inactive Treating Comm ents Source Name Type Date Date Clinician NO KNOWN Drug Active [facility]ations This patient has no known medications. Procedures This patient has no known procedures. Encounters Start End Encounter Admission Attending Care Care Encounter Source Date/Time Date/Time Type Type Clinicians Facility Department ID 2021-03-01 2021-03-[id number] 14:29:00 19:20:00 Gini Palacios [id number] [place] [id number] [place] [id number] 2021-03-01 2021-03-[address] [facility] [facility] ERT [id number] [employer] 13:36:00 13:36:00 [facility] Results This patient has no known results.
== END 2021-09-24 12:50 | disposition home or self-care (01) ==
LOC: ER 11:09
DX: M25.562 Pain in left knee (principal)
CPT/HCPCS: 99283

== ENCOUNTER 2022-02-20 05:24 | Emergency (ER) | payer SELFPAY ==
--- OUTSIDE RECORDS SUMMARY | 2022-02-20 05:27 | XMS REPORT | Continuity of Care Document ---
:1975 Author Organization [facility] t Address [address] [place] [address] Dr. Shankar [address] [place] [address] Care Team Providers Name Role Phone PCP, DOES NOT HAVE A Primary Care Physician Unavailable Pavithra SANFORD Attending Clinician Unavailable Pavithra Sanford DO Attending Clinician Constantino Ash NP Attending Clinician Pavithra SANFORD Admitting Clinician Unavailable Problems Condition Condition Condition Status Onset Resolution Last Treating Co mments Source Name Details Category Date Date Treatment Clinician Date No known No known Disease Unive rs active active ity of problems problems [facility] Allergies, Adverse Reactions, Alerts Allergy Allergy Status Severity Reaction(s) Onset Inactive Treating Comm ents Source Name Type Date Date Clinician NO KNOWN Drug Active Univers ALLERGIE Class ity of S [facility] Social History Social Habit Start Date Stop Date Quantity Comments Source Exposure to Not sure [facility]-CoV-2 [facility] (event) [place] Alcohol intake 2022-01-08 2022-01-08 Current drinker Unive rsity of 00:00:00 00:00:00 of alcohol [facility] (finding) [place] Tobacco use and 2019-01-24 2019-01-24 Never used Universit y of exposure 00:00:00 00:00:00 [facility] Sex Ass[birth year] At [birth year] Universit y of 00:00:00 00:00:00 [facility] Smoking Status Start Date Stop Date Source Current every day smoker 2019-01-24 00:00:00 Uni versity of [facility] Medications Ordered Filled Start Stop Current Ordering Indication Dosage Frequency Signature Comments Components Source Medication Medication Date Date Medication? Clinician (SIG) Name Name morpHINE No 4mg 4 mg, Slow Un naty injection 4 01-08 IV Push, ity of mg 17:45: 16:43 ONCE, 1 [place] 00 :00 dose, On Medical Sat Branch 01/08/22 at 1145, STAT ondansetron 2021- No 4mg 4 mg, Slow Univers (ZOFRAN 01-08 IV Push, ity of (PF)) 17:45: 16:43 ONCE, 1 [place] injection 4 00 :00 dose, On Medi elif mg Sat Branch 01/08/22 at 1145, FERNANDEZ NaCl 0.9% 2021- No 1000mL at 999 Uni vers (NS) bolus 01-08 mL/hr, ity of infusion 17:30: 17:42 1,000 mL, Curt as 1,000 mL 00 :00 IV Medical Infusion, Branch ONCE, 1 dose, On 01/08/22 at 1130, FERNANDEZ ketorolac 2021- No 30mg 30 mg, Unive rs (TORADOL) 01-08 Slow IV ity of injection 17:30: 16:32 Push, [place] 30 mg 00 :00 ONCE, 1 Medical dose, On Branch 01/08/22 at 1130, FERNANDEZ naproxen Yes [id number] 500mg Take 1 U nivers 500 mg 01-08 tablet by ity of tablet 00:00: mouth 2 [place] 00 (two) Medical times Branch daily with meals. gabapentin 2021- Yes [id number] 100mg Take 1 Univers 100 mg 01-08-29 capsule by ity of capsule 00:00: 04:59 mouth 3 [place] 00 :00 (three) Medical times Branch daily for 30 days. dicyclomine Yes [id number] 20mg Take 1 Univers 20 mg 4-19 tablet by ity of tablet 00:00: mouth 4 [place] 00 (four) Medical times Branch daily as needed for Abdominal pain. proMETHazin Yes [id number] 25mg Take 1 Univers e 25 mg 4-19 tablet by ity of tablet 00:00: mouth [place] 00 every 6 Medical (six) Branch hours as needed for Nausea and Vomiting (N/V). ketorolac Yes [id number] 10mg Take 1 Univers 10 mg 3-14 [id number] tablet by ity of tablet 00:00: mouth [place] 00 every 8 Medical (eight) Branch hours as needed for Pain (scale 4-6). traMADOL 50 2019-0 Yes [id number] 50mg Take 1 Univers mg tablet 3-14 [id number] tablet by ity of 00:00: mouth [place] 00 every 8 Medical (eight) Branch hours as needed for Pain (scale 4-6). ketorolac 2019-0 Yes [id number] 10mg Take 1 Univers 10 mg 3-14 [id number] tablet by ity of tablet 00:00: mouth [place] 00 every 8 Medical (eight) Branch hours as needed for Pain (scale 4-6). Immunizations Ordered Filled Immunization Date Status Comments Flakita francesca Immunization Name Name Td 2019-01-24 Completed [facility] 00:00:00 [facility] Vital Signs Vital Name Observation Time Observation Value Comments Source Systolic blood 2022-01-08 15:41:00 139 mm[facility]Hg[facility] Diastolic blood 2022-01-08 15:41:00 100 mm[Hg] [facility] Heart rate 2022-01-08 15:41:00 97 /min [facility] Body temperature 2022-01-08 15:41:00 36.89 Clarice [facility] Respiratory rate 2022-01-08 15:41:00 16 /min [facility] Body height 2022-01-08 15:41:00 175.3 cm [facility] Body weight 2022-01-08 15:41:00 65.772 kg [facility] BMI 2022-01-08 15:41:00 21.41 kg/m2 [facility] Oxygen saturation in 2022-01-08 15:41:00 95 /min [facility] Arterial blood by [facility] Pulse oximetry Branch Procedures Procedure Date / Time Performed Performing Clinician Chandrika ma CT ABDOMEN PELVIS WO 2022-01-08 16:59:02 Yi Sanford [facility] LIPASE 2022-01-08 16:26:00 Yi [facility] COMP. METABOLIC PANEL 2022-01-08 16:26:00 Yi Sanford [facility] ([id number]) [facility] CBC WITH DIFF 2022-01-08 16:26:00 [facility] URINALYSIS 2022-01-08 16:26:00 [facility] ASSIGNMENT OF BENEFITS 2022-01-08 16:13:19 Doctor Unassigned, No [facility] CONSENT/REFUSAL FOR 2022-01-08 15:33:44 Doctor Unassigned, No [facility] DIAGNOSIS AND [facility] TREATMENT Encounters Start End Encounter Admission Attending Care Care Encounter Source Date/Time Date/Time Type Type Clinicians Facility Department ID 2022-01-08 2022-01-08 Emergency [facility] [id number] Univers 09:44:00 12:11:00 YI [facility] 2022-01-08 2022-01-08 [facility] [id number] [facility] [place] 09:44:00 12:11:00 Yi PAL[place]OS [id number] [facility] [id number] [facility] [id number] [place] [address] Branch 2021-03-01 2021-03-01 Emergency [facility] [id number] 14:29:00 19:20:00 Gini Palacios [id number] [place] [id number] [place] [id number] 2021-03-01 2021-03-01 Emergency X [facility] ERT [id number] Univers 13:36:00 13:36:00 [facility] Results Test Description Test Time Test Comments Results Result Comments Source COMP. METABOLIC PANEL ([id number]) 2022-01-08 16:51:03 Test Item Value Reference Range Interpretation Comme nts NA (test code = 2038315302) 135 mmol/L 135-145 K (test code = 6305125119) 4.6 mmol/L 3.5-5.0 CL (test code = 9736920383) 103 mmol/L 98-108 CO2 TOTAL (test code = 4740452532) 21 mmol/L 23-31 L AGAP (test code = 3646153765) 2-16 BUN (test code = 2212933040) 14 mg/dL 7-23 GLUCOSE (test code = 1529682842) 116 mg/dL 70-110 H CREATININE (test code = 0.78 mg/dL 0.60-1.25 1020923395) TOTAL BILI (test code = 1.0 mg/dL 0.1-1.3 6133150419) CALCIUM (test code = 2358560823) 9.6 mg/dL 8.6-10.6 T PROTEIN (test code = 3268751536) 7.8 g/dL 6.3-8.2 ALBUMIN (test code = 8749614329) 4.8 g/dL 3.5-5.0 ALK PHOS (test code = 9618071185) 71 U/L 34-122 ALTv (test code = 1742-6) 56 U/L 5-50 H AST(SGOT) (test code = 2056902607) 60 U/L 13-40 H eGFR (test code = 3500685629) mL/min/1.73m2 DAYSI (test code = DAYSI) Association of Glomerular Filtration Rate (GFR) and Staging of Kidney Disease* + +-------- + ------+| GFR (mL/min/1.73 m2) ?| With Kidney Damage ?| ?Without Kidney Damage+ +-- + +| ?>90 ?| ?Stage one ?| ? Normal ?+ +------- + -------+| ?60-89 ?| ?Stage two ?| ? Decreased GFR ? + +-------- + ------+| ?30-59 ?| ?Stage three ?| ? Stage three ? + +-------- + ------+| ?15-29 ?| ?Stage four ? | ? Stage four ?+ +------- + -------+| ?<15 (or dialysis) ? ?| ?Stage five ? | ? Stage five ?+ +------- + -------+ *Each stage assumes the associated GFR level has been in effect for at least three months. ?Stages 1 to 5, with or without kidney disease, indicate chronic kidney disease. Notes: Determination of stages one and two (with eGFR >59mL/min/1.73 m2) requires estimation of kidney damage for at least three months as defined by structural or functional abnormalities of the kidney, manifested by either:Pathological abnormalities or Markers of kidney damage (including abnormalities in the composition of the blood or urine or abnormalities in imaging tests). Lab Interpretation (test code = Abnormal 66360-0) [facility] 16[facility]50:23 Test Item Value Reference Range Interpretation Comments LIPASE (test code = 3087800630) 233 U/L 0-220 H Lab Interpretation (test code = Abnormal 31773-4) [facility] [id number] 16:35:43 Test Item Value Reference Range Interpretation Comments WBC (test code = See_Comment [Automated 6690-2) message] The sy stem which generated this result transmitted reference range : 4.20 - 10.70 10*3/?L. The reference range was not used to interpret this result as normal/abnormal . RBC (test code = See_Comment [Automated 789-8) message] The sy stem which generated this result transmitted reference range : 4.26 - 5.52 10*6/?L. The reference range was not used to interpret this result as normal/abnormal . HGB (test code = 15.8 g/dL 12.2-16.4 718-7) HCT (test code = 44.4 % 38.4-49.3 4544-3) MCV (test code = 97.4 fL 81.7-95.6 H 787-2) MCH (test code = 34.6 pg 26.1-32.7 H 785-6) MCHC (test code = 35.6 g/dL 31.2-35.0 H 786-4) RDW-SD (test code = 42.5 fL 38.5-51.6 71316-7) RDW-CV (test code = 11.7 % 12.1-15.4 L 788-0) PLT (test code = See_Comment [Automated 777-3) message] The sy stem which generated this result transmitted reference range : 150 - 328 10*3/ ?L. The reference r evaristo was not used to interpret this result as normal/abnormal . MPV (test code = 8.5 fL 9.8-13.0 L 35592-8) NRBC/100 WBC (test See_Comment [Automat ed code = 8367241750) message] The system which generated this result transmitted reference range : 0.0 - 10.0 /100 WBCs. The refer ence range was not u sed to interpret th is result as normal/abnormal . NRBC x10^3 (test code <0.01 See_Comment [Auto mated = 0847256900) message] The s ystem which generated this result transmitted reference range : 10*3/?L. The reference range was not used to interpret this result as normal/abnormal . GRAN MAT (NEUT) % 66.0 % (test code = 770-8) IMM GRAN % (test code 0.20 % = 1433681622) LYMPH % (test code = 21.2 % 736-9) MONO % (test code = 10.5 % 5905-5) EOS % (test code = 1.3 % 713-8) BASO % (test code = 0.8 % 706-2) GRAN MAT x10^3(ANC) 5.71 10*3/uL 1.99-6.95 (test code = 9137473411) IMM GRAN x10^3 (test <0.03 0.00-0.06 code = 3988104290) LYMPH x10^3 (test code 1.83 10*3/uL 1.09-3.23 = 731-0) MONO x10^3 (test code 0.91 10*3/uL 0.36-1.02 = 742-7) EOS x10^3 (test code = 0.11 10*3/uL 0.06-0.53 711-2) BASO x10^3 (test code 0.07 10*3/uL 0.01-0.09 = 704-7) Lab Interpretation Abnormal (test code = 78005-3) [facility]"
[2022-02-20] MEDS ORDERED: FAMOTIDINE 20 MG/2 ML VIAL IV ONE (06:02)
[2022-02-20] MEDS ORDERED: NA CHLORIDE 0.9% 1,000 ML ONE ×2 (06:02→08:22)
[2022-02-20] MEDS ORDERED: MORPHINE 4 MG/ML SYR ONE ×2 (06:02→06:36)
[2022-02-20] MEDS ORDERED: ONDANSETRON 4 MG/2 ML VIAL ONE ×2 (06:02→08:21)
[2022-02-20 06:18] LABS: Absolute Lymphocytes (CBC) 1.4 K/uL (0.7-4.9); Hematocrit 39.2 % (39.6-49.0); Lymphocytes % 19.9 % (15.3-44.8); MPV 6.7 fL (7.6-11.3); RBC Red Blood Cell Count 3.93 M/uL (4.33-5.43)
[2022-02-20 06:39] LABS: ALT/SGPT 96 U/L (12-78); AST/SGOT 62 U/L (15-37); Albumin 3.8 g/dL (3.4-5.0); Alkaline Phosphatase 82 U/L (45-117); BUN Blood Urea Nitrogen 20 mg/dL (7-18); Bicarbonate 24 mmol/L (21-32); Bilirubin Total 0.5 mg/dL (0.2-1.0); Glucose Level 96 mg/dL (74-106); Lipase 194 U/L (73-393); Protein, Total 7.4 g/dL (6.4-8.2); Sodium Level 137 mmol/L (136-145)
--- NOTE | 2022-02-20 07:47 | RAD REPORT ---
EXAM DESCRIPTION: CTAbdomen Pelvis W Contrast - 02/20/2022 7:38 am CLINICAL HISTORY: ABD PAIN COMPARISON: <Comparisons> TECHNIQUE: CT of the abdomen and pelvis was performed. All CT scans are performed using dose optimization technique as appropriate and may include automated exposure control or mA/KV adjustment according to patient size. FINDINGS: Lower chest: No acute abnormality. Mild circumferential thickened distal esophagus could r eflect mild esophagitis. Liver: No acute abnormality or suspicious lesions. Biliary: No biliary ductal dilatation. Stomach: No significant focal abnormality. Duodenum: No significant focal abnormality. Pancreas: No significant abnormality. Spleen: No significant abnormality. Adrenal: No suspicious lesions. Kidney/ureter: No hydronephrosis. No renal calculi. Retroperitoneum: No retroperitoneal adenopathy. Vascular: No aneurysm. Mild atherosclerosis. Bowel: No significant focal abnormality. Normal appendix. Peritoneum: No ascites or free air. Bladder: Grossly unremarkable. Reproductive: No adnexal masses. Bones: No acute fracture. Other: n/a IMPRESSION: No acute intra-abdominal or pelvic finding. Normal appendix.
--- NOTE | 2022-02-20 08:09 | ER ---
Nurse's Notes [facility] Rich Name: Omar Johnson Age: 46 yrs Sex: Male : 1975 Arrival Date: 02/20/2022 Time: 05:26 Bed 17 Private MD: Diagnosis: Epigastric abdominal tenderness;Tobacco abuse counseling;Tobacco use;Acute gastritis;Acute gastritis without bleeding Presentation: 02/20 05:39 Chief complaint: Patient states: Upper abdominal pain radiating to back that began lp1 yesterday; Hx of similar symptoms when diagnosed with pancreatitis. Coronavirus screen: At this time, the client does not indicate any symptoms associated with coronavirus-19. Ebola Screen: No symptoms or risks identified at this time. Initial Sepsis Screen: Does the patient meet any 2 criteria? No. Patient's initial sepsis screen is negative. Does the patient have a suspected source of infection? No. Patient's initial sepsis screen is negative. Risk Assessment: Do you want to hurt yourself or someone else? Patient reports no desire to harm self or others. Onset of symptoms was February 20, 2022. 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 - Social history:: Smoking status: Patient reports the use of cigarette tobacco products, smokes one-half pack cigarettes per day. Screenin:55 Abuse screen: Denies threats or abuse. Denies injuries from another. Nutritional kd3 screening: No deficits noted. Tuberculosis screening: No symptoms or risk factors identified. Fall Risk IV access (20 points). Assessment: 05:54 Pain: Complains of pain in left upper quadrant. GI: Bowel sounds present X 4 quads. kd3 Abdomen is tender to palpation in left upper quadrant. 05:55 General: Appears uncomfortable, Behavior is calm, cooperative, appropriate for age. kd3 Neuro: Level of Consciousness is awake, alert, obeys commands, Oriented to person, place, time, situation. Cardiovascular: Patient's skin is warm and dry. Respiratory: Airway is patent Trachea midline Respiratory effort is even, unlabored, Respiratory pattern is regular, symmetrical. 07:35 Reassessment: patient transported to CT scan. kd3 07:50 General: Appears uncomfortable, Behavior is crying. Pain: Complains of pain in left ww upper quadrant. Neuro: Level of Consciousness is awake, alert, obeys commands, Oriented to person, place, time, situation, Moves all extremities. Speech is normal. Cardiovascular: Patient's skin is warm and dry. Chest pain is denied. Respiratory: Airway is patent Respiratory effort is even, unlabored, Respiratory pattern is regular, symmetrical. GI: Abdomen is non-distended, Abdomen is tender to palpation in left upper quadrant. : No signs and/or symptoms were reported regarding the genitourinary system. EENT: No signs and/or symptoms were reported regarding the EENT system. Derm: Skin is healthy with good turgor. 08:25 Reassessment: Patient appears in no apparent distress at this time. No changes from previously documented assessment. Patient and/or family updated on plan of care and expected duration. Pain level reassessed. Patient is alert, oriented x 3, equal unlabored respirations, skin warm/dry/pink. 09:17 Reassessment: Patient appears in no apparent distress at this time. No changes from previously documented assessment. Patient and/or family updated on plan of care and expected duration. Pain level reassessed. Patient is alert, oriented x 3, equal unlabored respirations, skin warm/dry/pink. 10:22 Reassessment: Patient appears in no apparent distress at this time. No changes from previously documented assessment. Patient and/or family updated on plan of care and expected duration. Pain level reassessed. Patient is alert, oriented x 3, equal unlabored respirations, skin warm/dry/pink. Vital Signs: 05:39 BP 147 / 100; Pulse 92; Resp 18; Temp 98.3(O); Pulse Ox 99% on R/A; Weight 70.31 kg lp1 (R); Height 5 ft. 4 in. (162.56 cm); Pain 10/10; 05:54 BP 151 / 94; Pulse 98; Resp 17; Pulse Ox 97% on R/A; kd3 06:40 BP 141 / 98; Pulse 73; Resp 18; Pulse Ox 96% on R/A; kd3 07:15 BP 139 / 95; Pulse 66; Resp 16; Pulse Ox 100% on R/A; ww 08:25 BP 114 / 81; Pulse 77; Resp 16; Pulse Ox 99% ; ww 09:17 BP 123 / 91; Pulse 59; Resp 18; Pulse Ox 99% on R/A; ww 05:39 Body Mass Index 26.61 (70.31 kg, 162.56 cm) lp1 ED Course: 05:26 Patient arrived in ED. kz 05:29 Lacy Woodruff, RN is Primary Nurse. kd3 05:31 Steven Ribeiro DO is Attending Physician. ms3 05:41 Triage completed. lp1 05:41 Arm band placed on. lp1 05:56 Inserted saline lock: 20 gauge in right antecubital area, using aseptic technique. kd3 06:09 Patient has correct armband on for positive identification. Bed in low position. Call kd3 light in reach. Side rails up X 1. 07:19 Attending Physician role handed off by Steven Ribeiro DO jeanette 07:19 Liang Gonzalez MD is Attending Physician. jeanette 07:40 CT Abd/Pelvis - IV Contrast Only In Process Unspecified. EDMS 08:07 Rose Hood MD is Referral Physician. jeanette 09:33 Primary Nurse role handed off by Lacy Woodruff RN eb 10:19 IV discontinued, intact, bleeding controlled, No redness/swelling at site. Pressure mb7 dressing applied. 10:23 No provider procedures requiring assistance completed. ww 10:23 IV discontinued. ww Administered Medications: 06:05 Drug: NS 0.9% 1000 ml Route: IV; Rate: 1 bolus; Site: right antecubital; kd3 06:05 Drug: Pepcid (famotidine) 20 mg Route: IVP; Site: right antecubital; kd3 06:05 Drug: Zofran (Ondansetron) 4 mg Route: IVP; Site: right antecubital; kd3 06:05 Drug: morphine 4 mg Route: IVP; Site: right antecubital; kd3 06:41 Follow up: Response: Pain is unchanged, physician notified kd3 06:32 Drug: morphine 4 mg Route: IVP; Site: right antecubital; kd3 06:41 Follow up: Response: No adverse reaction; Pain is decreased kd3 08:24 Drug: NS 0.9% 1000 ml Route: IV; Rate: 1 bolus; Site: right antecubital; ww 08:25 Drug: Dilaudid (HYDROmorphone) 1 mg Route: IVP; Site: right antecubital; ww 08:26 Drug: ProTONIX (pantoprazole) 40 mg Route: IVP; Site: right antecubital; ww 08:27 Drug: Zofran (Ondansetron) 4 mg Route: IVP; Infused Over: 2 mins; Site: right ww antecubital; Outcome: 08:08 Discharge ordered by . jeanette 10:23 Discharged to home ambulatory. 10:23 Condition: stable 10:23 Discharge instructions given to patient, Instructed on discharge instructions, follow up and referral plans. medication usage, safety practices, Demonstrated understanding of instructions, follow-up care, medications, Prescriptions given X 3. 10:23 Patient left the ED. ww Signatures: Dispatcher [employer] EDMS Liang Gonzalez MD MD cha Pena, Laura, RN RN lp1 Carolina Arteaga Marcus, DO DO ms3 Lacy Woodruff RN RN kd3 Stephanie Gleason mb7 Nenita Salinas, RN RN Winnie Velazquez
--- NOTE | 2022-02-20 08:10 | EDPHYS ---
Physician Documentation [facility] Name: Omar Johnson Age: 46 yrs Sex: Male : 1975 Arrival Date: 02/20/2022 Time: 05:26 Bed 17 Private MD: ED Physician Liang Gonzalez HPI: 02/20 05:56 This 46 yrs old Male presents to ER via Ambulatory with complaints of Abdominal Pain. ms3 05:56 The patient presents with abdominal pain in the epigastric area. Onset: The ms3 symptoms/episode began/occurred 12 hour(s) ago. The symptoms radiate to back. Associated signs and symptoms: Pertinent positives: diarrhea, Pertinent negatives: nausea and vomiting. The symptoms are described as burning. Modifying factors: The symptoms are alleviated by nothing. Severity of pain: At its worst the pain was severe in the emergency department the pain is unchanged. 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 - Social history:: Smoking status: Patient reports the use of cigarette tobacco products, smokes one-half pack cigarettes per day. ROS: 05:56 Constitutional: Negative for fever, and chills. ENT: Negative for injury, pain, and ms3 discharge, Neck: Negative for injury, pain, and swelling, Cardiovascular: Negative for chest pain, and palpitations. Respiratory: Negative for shortness of breath, cough, wheezing, and pleuritic chest pain. 05:56 Skin: Negative for injury, rash, and discoloration. 05:56 Abdomen/GI: Positive for abdominal pain. 05:56 All other systems are negative. Exam: 05:56 Constitutional: This is a well developed, well nourished patient who is awake, alert, ms3 and in no acute distress. Head/Face: Normocephalic, atraumatic. ENT: Nares patent. No nasal discharge, no septal abnormalities noted. Tympanic membranes are normal and external auditory canals are clear. Oropharynx with no redness, swelling, or masses, exudates, or evidence of obstruction, uvula midline. Mucous membranes moist. Neck: Trachea midline, no cervical lymphadenopathy. Supple, full range of motion without nuchal rigidity, or vertebral point tenderness. No Meningismus. Chest/axilla: Normal chest wall appearance and motion. Nontender with no deformity. Cardiovascular: Regular rate and rhythm with a normal S1 and S2. No gallops, murmurs, or rubs. Normal PMI, no JVD. No pulse deficits. Respiratory: Lungs have equal breath sounds bilaterally, clear to auscultation and percussion. No rales, rhonchi or wheezes noted. No increased work of breathing, no retractions or nasal flaring. Skin: Warm, dry with normal turgor. Normal color with no rashes, no lesions, and no evidence of cellulitis. 05:56 Abdomen/GI: Inspection: abdomen appears normal, Bowel sounds: normal, Palpation: moderate abdominal tenderness, in the epigastric area. Vital Signs: 05:39 BP 147 / 100; Pulse 92; Resp 18; Temp 98.3(O); Pulse Ox 99% on R/A; Weight 70.31 kg lp1 (R); Height 5 ft. 4 in. (162.56 cm); Pain 10/10; 05:54 BP 151 / 94; Pulse 98; Resp 17; Pulse Ox 97% on R/A; kd3 06:40 BP 141 / 98; Pulse 73; Resp 18; Pulse Ox 96% on R/A; kd3 07:15 BP 139 / 95; Pulse 66; Resp 16; Pulse Ox 100% on R/A; ww 08:25 BP 114 / 81; Pulse 77; Resp 16; Pulse Ox 99% ; ww 09:17 BP 123 / 91; Pulse 59; Resp 18; Pulse Ox 99% on R/A; ww 05:39 Body Mass Index 26.61 (70.31 kg, 162.56 cm) lp1 MDM: 05:38 Patient medically screened. ms3 05:56 Differential diagnosis: bowel obstruction, gastritis, gastroesophageal reflux disease, ms3 pancreatitis. 07:27 Transition of care: After a detail discussion of the patient's case, care is ms3 transferred to Liang Gonzalez MD. 08:10 Data reviewed: vital signs, nurses notes, lab test result(s), radiologic studies, CT jeanette scan. Data interpreted: image scientist: rate is 73 beats/min, rhythm is regular. Test interpretation: by ED physician or midlevel provider: ECG, plain radiologic studies. Counseling: I had a detailed discussion with the patient and/or guardian regarding: the historical points, exam findings, and any diagnostic results supporting the discharge/admit diagnosis, lab results, radiology results, the need for outpatient follow up, for definitive care, a family practitioner, a vessel welder. 02/20 05:55 Order name: CBC with Diff; Complete Time: 06:24 ms3 02/20 05:55 Order name: CMP; Complete Time: 06:40 ms3 02/20 05:55 Order name: Lipase; Complete Time: 06:40 ms3 02/20 05:59 Order name: CT Abd/Pelvis - IV Contrast Only; Complete Time: 07:59 ms3 02/20 05:55 Order name: IV Saline Lock; Complete Time: 05:57 ms3 02/20 05:55 Order name: Labs collected and sent; Complete Time: 05:57 ms3 Administered Medications: 06:05 Drug: NS 0.9% 1000 ml Route: IV; Rate: 1 bolus; Site: right antecubital; kd3 06:05 Drug: Pepcid (famotidine) 20 mg Route: IVP; Site: right antecubital; kd3 06:05 Drug: Zofran (Ondansetron) 4 mg Route: IVP; Site: right antecubital; kd3 06:05 Drug: morphine 4 mg Route: IVP; Site: right antecubital; kd3 06:41 Follow up: Response: Pain is unchanged, physician notified kd3 06:32 Drug: morphine 4 mg Route: IVP; Site: right antecubital; kd3 06:41 Follow up: Response: No adverse reaction; Pain is decreased kd3 08:24 Drug: NS 0.9% 1000 ml Route: IV; Rate: 1 bolus; Site: right antecubital; ww 08:25 Drug: Dilaudid (HYDROmorphone) 1 mg Route: IVP; Site: right antecubital; ww 08:26 Drug: ProTONIX (pantoprazole) 40 mg Route: IVP; Site: right antecubital; ww 08:27 Drug: Zofran (Ondansetron) 4 mg Route: IVP; Infused Over: 2 mins; Site: right ww antecubital; Disposition Summary: 02/20/22 08:08 Discharge Ordered Location: Home [facility] Problem: new jeanette Symptoms: have improved [facility] Condition: Stable [facility] Diagnosis - Epigastric abdominal tenderness jeanette - Tobacco abuse counseling jeanette - Tobacco use jeanette - Acute gastritis jeanette - Acute gastritis without bleeding jeanette Followup: jeanette - With: Private Physician - When: 2 - 3 days - Reason: Recheck today's complaints, Continuance of care, Re-evaluation by your physician Followup: jeanette - With: Rose Hood MD - When: 2 - 3 days - Reason: Recheck today's complaints, Continuance of care, Re-evaluation by your physician Discharge Instructions: - Discharge Summary Sheet jeanette - Abdominal Pain, Adult jeanette - Gastritis, Adult jeanette - Steps to Quit Smoking jeanette - Health Risks of Smoking jeanette - Gastritis, Adult, Xyxd-uw-[id number] jeanette - Abdominal Pain, Adult, Gsdw-oy-Uplr jeanette - Steps to Quit Smoking, Csjf-xc-Ltdf jeanette - Alcohol Abuse and Nutrition [facility] Forms: - Medication Reconciliation Form jeanette - Thank You Letter jeanette - Antibiotic Education jeanette - Prescription Opioid Use [facility] Prescriptions: - Protonix 40 mg Oral Tablet - take 1 tablet by ORAL route once daily; 30 tablet; Refills: 0, Product jeanette Selection Permitted - dicyclomine 20 mg Oral Tablet - take 1 tablet by ORAL route 4 times per day; 28 tablet; Refills: 0, Product jeanette Selection Permitted - Zofran 4 mg Oral Tablet - take 1 tablet by ORAL route every 12 hours As needed; 20 tablet; Refills: 0, jeanette Product Selection Permitted Signatures: Dispatcher [employer] Liang Mcneil MD MD cha Pena, Laura RN RN lp1 Steven Ribeiro DO DO ms3 Lacy Woodruff, RN RN kd3 Nenita Salinas RN RN ww
[2022-02-20] MEDS ORDERED: PANTOPRAZOLE 40 MG INJ ONE (08:21)
[2022-02-20] MEDS ORDERED: HYDROMORPHONE HCL 1 MG/ML INJ ONE (08:21)
[2022-02-20 10:31] VITALS: TEMP 98.3
[2022-02-20 10:37] VITALS: O2SAT 99
[2022-02-20 10:39] VITALS: BP 123/91
== END 2022-02-20 10:23 | disposition home or self-care (01) ==
LOC: ER 05:24
DX: K29.00 Acute gastritis without bleeding (principal); Z72.0 Tobacco use; Z71.6 Tobacco abuse counseling
CPT/HCPCS: 36415; 74177; 80053; 83690; 85025; 96374; 96375; 99284; C9113; J1170; J2405; J7030; Q9967

== ENCOUNTER 2023-03-18 03:47 | Inpatient (IN) | payer SELFPAY ==
--- OUTSIDE RECORDS SUMMARY | 2023-03-18 03:51 | XMS REPORT | Continuity of Care Document ---
:1975 Author Organization [facility] t Address [address] [place] [address] Care Team Providers Name Role Phone PCP, PATIENT DOES NOT HAVE A Primary Care Physician Unavaila ble YI SANFORD Attending Clinician Unavailable Yi Sanford DO Attending Clinician Gini Ash NP Attending Clinician YI SANFORD Admitting Clinician Unavailable Problems Condition Condition Condition Status Onset Resolution Last Treating Co mments Source Name Details Category Date Date Treatment Clinician Date No known No known Disease Unive rs active active ity of problems problems [facility] Allergies, Adverse Reactions, Alerts Allergy Allergy Status Severity Reaction(s) Onset Inactive Treating Comm ents Source Name Type Date Date Clinician NO KNOWN Drug Active Univers ALLERGIE Class ity of S [facility] Social History Social Habit Start Date Stop Date Quantity Comments Source Exposure to Not sure [place] of SARS-CoV-2 [facility] (event) [place] Alcohol intake 2022-01-08 2022-01-08 Current drinker Unive rsity of 00:00:00 00:00:00 of alcohol [facility] (finding) [place] Tobacco use and 2019-01-24 2019-01-24 Never used Universit y of exposure 00:00:00 00:00:00 [facility] Sex Assigned At [birth year] Universit y of 00:00:00 00:00:00 [facility] Smoking Status Start Date Stop Date Source Current every day smoker 2019-01-24 00:00:00 Uni versity of [facility] Medications Ordered Filled Start Stop Current Ordering Indication Dosage Frequency Signature Comments Components Source Medication Medication Date Date Medication? Clinician (SIG) Name Name morpHINE 2021- No 4mg 4 mg, Slow Un naty [...] Branch 01/08/22 at 1130, FERNANDEZ naproxen Yes [id number] 500mg Take 1 U nivers 500 mg 01-08 tablet by ity of tablet 00:00: mouth 2 [place] 00 (two) Medical times Branch daily with meals. gabapentin 2021- No [id number] 100mg Take 1 Univers 100 mg 01-08 03-29 capsule by ity of capsule 00:00: 04:59 mouth 3 [place] 00 :00 (three) Medical times Branch daily for 30 days. dicyclomine Yes [id number] 20mg Take 1 Univers 20 mg 4-19 tablet by ity of tablet 00:00: mouth 4 [place] 00 (four) Medical times Branch daily as needed for Abdominal pain. proMETHazin Yes [id number] 25mg Take 1 Univers e 25 mg 4-19 tablet by ity of tablet 00:00: mouth [place] 00 every 6 Medical (six) Branch hours as needed for Nausea and Vomiting (N/V). ketorolac 2019-0 Yes [id number] 10mg Take 1 Univers 10 mg 3-14 [id number] tablet by ity of tablet 00:00: mouth [place] 00 every 8 Medical (eight) Branch hours as needed for Pain (scale 4-6). traMADOL 50 2019-0 Yes [id number] 50mg Take 1 Univers mg tablet 3-14 [id number] tablet by ity of 00:00: mouth [place] 00 every 8 Medical (eight) Branch hours as needed for Pain (scale 4-6). ketorolac 2019-0 Yes [id number] 10mg Take 1 Univers 10 mg 3-14 [id number] tablet by ity of tablet 00:00: mouth [place] 00 every 8 Medical (eight) Branch hours as needed for Pain (scale 4-6). Immunizations Ordered Filled Immunization Date Status Comments Flakita e Immunization Name Name Td 2019-01-24 Completed [facility] 00:00:00 [facility] Vital Signs Vital Name Observation Time Observation Value Comments Source Systolic [facility] 2022-01-08 15:41:00 139 [facility] 2022-01-08 15:41:00 100 mm[Hg] [facility] Heart rate 2022-01-08 15:41:00 97 /min [facility] Body temperature 2022-01-08 15:41:00 36.89 [facility] Respiratory rate 2022-01-08 15:41:00 16 /min [facility] Body height 2022-01-08 15:41:00 175.3 cm [facility] Body weight 2022-01-08 15:41:00 65.772 kg [facility] BMI 2022-01-08 15:41:00 21.41 kg/m2 [facility] Oxygen saturation in 2022-01-08 15:41:00 95 /min [facility] Arterial blood by [facility] Pulse oximetry [place] Procedures Procedure Date / Time Performed Performing Clinician Chandrika e CT ABDOMEN PELVIS WO 2022-01-08 16:59:02 Yi Sanford [facility] CONTRAST [facility] LIPASE 2022-01-08 16:26:00 Yi Sanford [facility] COMP. METABOLIC PANEL 2022-01-08 16:26:00 Yi Sanford [facility] ([id number]) [facility] CBC WITH DIFF 2022-01-08 16:26:00 Yi Sanford [facility] URINALYSIS 2022-01-08 16:26:00 Yi Sanford [facility] ASSIGNMENT OF BENEFITS 2022-01-08 16:13:19 Doctor Unassigned, No [facility] CONSENT/REFUSAL FOR 2022-01-08 15:33:44 Doctor Unassigned, No [facility] DIAGNOSIS AND [facility] TREATMENT Encounters Start End Encounter Admission Attending Care Care Encounter Source Date/Time Date/Time Type Type Clinicians Facility Department ID 2022-01-08 2022-01-08 [id number] Univers 09:44:00 12:11:[address] [facility] 2022-01-08 2022-01-08 [facility] [id number] [facility] 09:44:00 12:11:00 Yi PALACIOS [id number] [facility] [id number] [facility] [id number] [address] 2021-03-01 2021-03-01 Emergency [facility] [id number] 14:29:00 19:20:00 Gini Palacios [id number] [place] [id number] [place] [id number] [facility] 2021-03-01 2021-03-01 Emergency X [facility] ERT [id number] Univers 13:36:00 13:36:00 [facility] Results Test Description Test Time Test Comments Results Result Comments Source COMP. METABOLIC PANEL (13813) 2022-01-08 16:51:03 Test Item Value Reference Range Interpretation Comme nts NA (test code = 8908327310) 135 mmol/L 135-145 K (test code = 2945149233) 4.6 mmol/L 3.5-5.0 CL (test code = 3405090690) 103 mmol/L 98-108 CO2 TOTAL (test code = 8924349633) 21 mmol/L 23-31 L AGAP (test code = 6623096208) 2-16 BUN (test code = 6873973664) 14 mg/dL 7-23 GLUCOSE (test code = 5003440593) 116 mg/dL 70-110 H CREATININE (test code = 0.78 mg/dL 0.60-1.25 5221272450) TOTAL BILI (test code = 1.0 mg/dL 0.1-1.6 1051810359) CALCIUM (test code = 7909184136) 9.6 mg/dL 8.6-10.6 T PROTEIN (test code = 4729020416) 7.8 g/dL 6.3-8.2 ALBUMIN (test code = 8082390341) 4.8 g/dL 3.5-5.0 ALK PHOS (test code = 9464433872) 71 U/L 34-122 ALTv (test code = 1742-6) 56 U/L 5-50 H AST(SGOT) (test code = 4151879605) 60 U/L 13-40 H eGFR (test code = 0052204022) mL/min/1.73m2 DAYSI (test code = DAYSI) Association [...] tests). Lab Interpretation (test code = Abnormal 18428-3) [facility]23 Test Item Value Reference Range Interpretation Comments LIPASE (test code = 5495877872) 233 U/L 0-220 H Lab Interpretation (test code = Abnormal 65696-8) [facility] [id number] 16:35:43 Test Item Value Reference Range Interpretation Comments WBC (test code = See_Comment [Automated 5590-2) message] The sy stem which generated this result transmitted reference range : 4.20 - 10.70 10*3/?L. The reference range was not used to interpret this result as normal/abnormal . RBC (test code = See_Comment [Automated 029-8) message] The sy stem which generated this [...] RDW-SD (test code = 42.5 fL 38.5-51.6 77852-4) RDW-CV (test code = 11.7 % 12.1-15.4 L 788-0) PLT (test code = See_Comment [Automated 547-3) message] The sy stem which generated this result transmitted reference range : 150 - 328 10*3/ ?L. The reference r evaristo was not used to interpret this result as normal/abnormal . MPV (test code = 8.5 fL 9.8-13.0 L 98900-8) NRBC/100 WBC (test See_Comment [Automat ed code = 9593558596) message] The system which generated this result transmitted reference range : 0.0 - 10.0 /100 WBCs. The refer ence range was not u sed to interpret th is result as normal/abnormal . NRBC x10^3 (test code <0.01 See_Comment [Auto mated = 7202491243) message] The s ystem which generated this result transmitted reference range : 10*3/?L. The reference range was not used to interpret this result as normal/abnormal . GRAN MAT (NEUT) % 66.0 % (test code = 770-8) IMM GRAN % (test code 0.20 % = 6439586587) LYMPH % (test code = 21.2 % 736-9) MONO % (test code = 10.5 % 5905-5) EOS % (test code = 1.3 % 713-8) BASO % (test code = 0.8 % 706-2) GRAN MAT x10^3(ANC) 5.71 10*3/uL 1.99-6.95 (test code = 6976137048) IMM GRAN x10^3 (test <0.03 0.00-0.06 code = 7681465488) LYMPH x10^3 (test code 1.83 10*3/uL 1.09-3.23 = 731-0) MONO x10^3 (test code 0.91 10*3/uL 0.36-1.02 = 742-7) EOS x10^3 (test code = 0.11 10*3/uL 0.06-0.53 711-2) BASO x10^3 (test code 0.07 10*3/uL 0.01-0.09 = 704-7) Lab Interpretation Abnormal (test code = 36320-6) [facility]"
[2023-03-18] MEDS ORDERED: MORPHINE 4 MG/ML SYR ONE ×2 (04:37→07:12)
[2023-03-18] MEDS ORDERED: METOCLOPRAMIDE 10 MG/2mL INJ ONE ×2 (04:37→07:12)
[2023-03-18] MEDS ORDERED: KETOROLAC 30 MG/ML INJ ONE (04:37)
[2023-03-18] MEDS ORDERED: ONDANSETRON 4 MG/2 ML VIAL ONE (04:38)
[2023-03-18] MEDS ORDERED: NA CHLORIDE 0.9% 2,000 ML ONE (04:38)
[2023-03-18 04:42] LABS: Absolute Lymphocytes (CBC) 1.6 K/uL (0.7-4.9); Hematocrit 43.9 % (39.6-49.0); Lymphocytes % 19.1 % (15.3-44.8); MCV 100.4 fL (80-100); MPV 6.1 fL (7.6-11.3); RBC Red Blood Cell Count 4.38 M/uL (4.33-5.43)
[2023-03-18 04:59] LABS: Albumin 3.7 g/dL (3.4-5.0); Bilirubin Total 0.4 mg/dL (0.2-1.0); Potassium 3.8 mEq/L (3.5-5.1); Protein, Total 7.4 g/dL (6.4-8.2)
--- NOTE | 2023-03-18 07:02 | EDPHYS ---
Physician Documentation [facility] Name: Omar Johnson Age: 47 yrs Sex: Male : 1975 Arrival Date: 03/18/2023 Time: 03:47 Bed 7 Private MD: ED Physician Lorne Gottlieb HPI: 03/18 03:58 This 47 yrs old Other Race Male presents to ER via Unassigned with complaints of sp4 Abdominal Pain. 06:55 47-year-old male with history of prior alcoholic pancreatitis presents with cute onset sp4 epigastric abdominal pain starting this morning associated with moderate to severe vomiting. Patient states he has history of prior pancreatitis very similar presentation. Patient reports drinking alcohol last night up to 5 cans of beer denied drinking any this morning. . 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 - Social history:: Smoking status: Patient reports the use of cigarette tobacco products, smokes one-half pack cigarettes per day. - Family history:: not pertinent. ROS: 06:55 Constitutional: Negative for fever, chills, and weight loss, positive for generalized sp4 weakness Eyes: Negative for injury, pain, redness, and discharge, ENT: Negative for injury, pain, and discharge, Neck: Negative for injury, pain, and swelling, Cardiovascular: Negative for chest pain, palpitations, and edema, Respiratory: Negative for shortness of breath, cough, wheezing, and pleuritic chest pain, Abdomen/GI: Negative for diarrhea, and constipation, positive for abdominal pain, upper abdominal pain, nausea, vomiting Back: Negative for injury and pain, : Negative for injury, bleeding, discharge, and swelling, MS/Extremity: Negative for injury and deformity, Skin: Negative for injury, rash, and discoloration, Neuro: Negative for headache, weakness, numbness, tingling, and seizure, Psych: Negative for depression, anxiety, Allergy/Immunology: Negative for hives, rash, and allergies Endocrine: Negative for neck swelling, polydipsia, polyuria, polyphagia, and weight changes Hematologic/Lymphatic: Negative for swollen nodes, abnormal bleeding, and unusual bruising Exam: 06:55 Constitutional: This is a well developed, well nourished patient who is awake, alert, sp4 uncomfortable appearing male Head/Face: Normocephalic, atraumatic. Eyes: Pupils equal round and reactive to light, extra-ocular motions intact. Lids and lashes normal. Conjunctiva and sclera are not injected. Cornea within normal limits. Periorbital areas with no swelling, redness, or edema. ENT: Nares patent. No nasal discharge, no septal abnormalities noted. Tympanic membranes are normal and external auditory canals are clear. Oropharynx with no redness, swelling, or masses, exudates, or evidence of obstruction, uvula midline. Mucous membranes moist. Neck: Trachea midline, no thyromegaly or masses palpated, and no cervical lymphadenopathy. Supple, full range of motion without nuchal rigidity, or vertebral point tenderness. No Meningismus. Chest/axilla: Normal chest wall appearance and motion. Nontender with no deformity. No lesions are appreciated. Cardiovascular: Regular rate and rhythm with a normal S1 and S2. No gallops, murmurs, or rubs. Normal PMI, no JVD. No pulse deficits. Respiratory: Lungs have equal breath sounds bilaterally, clear to auscultation and percussion. No rales, rhonchi or wheezes noted. No increased work of breathing, no retractions or nasal flaring. Abdomen/GI: Soft, hypoactive bowel sounds, upper abdominal tenderness, epigastric tenderness, no sign of rebound or peritonitis , no rigidity no distention Back: No spinal tenderness. No costovertebral tenderness. Male : Normal genitalia with no discharge or lesions. Skin: Warm, dry with normal turgor. Normal color with no rashes, no lesions, and no evidence of cellulitis. MS/ Extremity: Pulses equal, no cyanosis. Neurovascular intact. Full, normal range of motion. Neuro: Awake and alert, GCS 15, oriented to person, place, time, and situation. Cranial nerves II-XII grossly intact. Motor strength 5/5 in all extremities. Sensory grossly intact. Psych: Awake, alert, with orientation to person, place and time. Behavior, mood, and affect are within normal limits Vital Signs: 04:12 Pulse 91; Resp 18 S; Temp 97.5(O); Pulse Ox 98% on R/A; Weight 70.31 kg (R); Height 5 as6 ft. 9 in. (R); Pain 10/10; 04:14 BP 122 / 92; as6 04:45 BP 113 / 80; Pulse 80; Resp 18; Pulse Ox 98% on R/A; vc1 05:35 BP 114 / 77; Pulse 72; Resp 17; Pulse Ox 98% on R/A; vc1 06:00 BP 129 / 87; Pulse 76; Resp 18; Pulse Ox 99% on R/A; vc1 07:17 BP 113 / 84; Pulse 74; Resp 16; Pulse Ox 98% ; Pain 6/10; ll1 08:46 BP 126 / 80; Pulse 72; Resp 16; Pulse Ox 99% ; hb 04:12 Body Mass Index 22.89 (70.31 kg, 175.26 cm) as6 04:12 Pain Scale: Adult as6 07:17 Pain Scale: Adult ll1 MDM: 03:58 Patient medically screened. sp4 06:55 Differential Diagnosis altered mental status, sepsis. Data reviewed: vital signs, sp4 nurses notes, old medical records, lab test result(s), amylase and lipase, CBC, electrolytes, hepatic panel, urinalysis, radiologic studies, CT scan. Consideration of Admission/Observation Patient was admitted/placed on observation. Escalation of care including admission/observation considered. Management of patient was discussed with the following: Hospitalist: Admitting hospitalist. ED course: CT abdomen revealed peripancreatic inflammatory changes consistent with acute pancreatitis. No organized pancreatic fluid collections. No evidence of pancreatic necrosis. Mild diffuse fatty liver infiltration. ED course: Lipase is elevated. Patient warrants admission for acute alcoholic Pancreatitis. . 07:41 ED course: Incidentally patient also tested positive for THC and methamphetamines which sp4 are likely contributing to his condition.. 03/18 03:58 Order name: Urinalysis W/Microscopic; Complete Time: 07:39 sp4 03/18 03:58 Order name: Urine Drug Screen sp4 03/18 03:58 Order name: CBC with Diff; Complete Time: 05:03 sp4 03/18 03:58 Order name: CMP; Complete Time: 05:03 sp4 03/18 03:58 Order name: Lipase; Complete Time: 05:03 sp4 03/18 04:22 Order name: Alcohol Level; Complete Time: 05:03 sp4 03/18 04:23 Order name: Urine Drug Screen; Complete Time: 07:39 sp4 03/18 04:35 Order name: Creatine Phosphokinase; Complete Time: 05:03 EDMS 03/18 07:59 Order name: CBC with Automated Diff EDMS 03/18 07:59 Order name: CBC with Automated Diff EDMS 03/18 07:59 Order name: Comprehensive Metabolic Panel EDMS 03/18 07:59 Order name: Comprehensive Metabolic Panel EDMS 03/18 07:59 Order name: Lipid Profile EDMS 03/18 07:59 Order name: Lipid Profile EDMS 03/18 07:59 Order name: Magnesium EDMS 03/18 07:59 Order name: Magnesium EDMS 03/18 07:59 Order name: Phosphorus EDMS 03/18 07:59 Order name: Phosphorus EDMS 03/18 07:59 Order name: Protime (+INR) EDMS 03/18 07:59 Order name: Protime (+INR) EDMS 03/18 04:22 Order name: CT Abd/Pelvis - IV Contrast Only sp4 03/18 07:59 Order name: NPO EDMS 03/18 03:58 Order name: IV Saline Lock; Complete Time: 04:38 sp4 03/18 03:58 Order name: Labs collected and sent; Complete Time: 04:38 sp4 Administered Medications: 04:45 Drug: metoCLOPramide IVP 10 mg Route: IVP; Site: right antecubital; ll3 06:16 Follow up: Response: No adverse reaction ll3 04:46 Drug: morphine IVP or IV 8 mg Route: IVP; Infused Over: 4 mins; Site: right antecubital;ll3 06:16 Follow up: Response: No adverse reaction; Marked relief of symptoms ll3 04:46 Drug: NS 0.9% IV 1000 ml Route: IV; Rate: 1 bolus; Site: right antecubital; ll3 06:22 Follow up: Response: No adverse reaction; IV Status: Completed infusion; IV Intake: ll3 1000ml 04:46 Drug: Ondansetron IVP 8 mg Route: IVP; Site: right antecubital; ll3 06:17 Follow up: Response: No adverse reaction ll3 04:46 Drug: Ketorolac IVP 30 mg Route: IVP; Site: right antecubital; ll3 06:16 Follow up: Response: No adverse reaction; Marked relief of symptoms ll3 06:22 Drug: NS 0.9% IV 1000 ml Route: IV; Rate: 125 ml/hr; Site: right antecubital; ll3 07:18 Follow up: Response: No adverse reaction; IV Status: Order to discontinue infusion; IV ll1 Intake: 400ml 07:16 Drug: D5-1/2 NS with KCl IV 20 mEq/L 1000 ml Route: IV; Rate: 125 ml/hr; Site: right ll1 antecubital; 09:42 Follow up: IV Status: Infusion continued upon admission; IV Intake: 200ml ll1 07:17 Drug: morphine IVP or IV 4 mg Route: IVP; Infused Over: 4 mins; Site: right antecubital;ll1 09:43 Follow up: Response: No adverse reaction; Pain is decreased; RASS: Alert and Calm (0) ll1 07:17 Drug: metoCLOPramide IVP 10 mg Route: IVP; Site: right antecubital; ll1 09:43 Follow up: Response: No adverse reaction ll1 Disposition Summary: 03/18/23 07:01 Hospitalization Ordered Hospitalization Status: Inpatient Admission sp4 Provider: Ramírez Flood sp4 Location: Telemetry/[facility] (Inpatient) sp4 Condition: Stable sp4 Problem: new sp4 Symptoms: have improved sp4 Bed/Room Type: Standard sp4 Room Assignment: 203(03/18/23 09:22) dw Diagnosis - Acute pancreatitis without necrosis or infection, unspecified sp4 - Acute alcoholic pancreatitis sp4 Forms: - Medication Reconciliation Form sp4 - SBAR form sp4 Signatures: Dispatcher [employer] EDVanessa Borrego RN RN dw Brian Gardner RN RN ll1 Herbie Roth RN RN as6 Shahid Gunn RN RN ll3 Lorne Gottlieb MD MD sp4 Corrections: (The following items were deleted from the chart) 04:34 04:23 CREATINE PHOSPHOKINASE+C.LAB.BRZ ordered. [facility] EDIL 09:22 07:01 sp4 dw
--- NOTE | 2023-03-18 07:02 | ER ---
Nurse's Notes [facility] [place] Name: Omar Johnson Age: 47 yrs Sex: Male : 1975 Arrival Date: 03/18/2023 Time: 03:47 Bed 7 Private MD: Diagnosis: Acute pancreatitis without necrosis or infection, unspecified;Acute alcoholic pancreatitis Presentation: 03/18 04:12 Chief complaint: Patient states: "I think it's me pancreas again". Coronavirus screen: as6 At this time, the client does not indicate any symptoms associated with coronavirus-19. Ebola Screen: No symptoms or risks identified at this time. Initial Sepsis Screen: Does the patient meet any 2 criteria? No. Patient's initial sepsis screen is negative. Does the patient have a suspected source of infection? No. Patient's initial sepsis screen is negative. Risk Assessment: Do you want to hurt yourself or someone else? Patient reports no desire to harm self or others. Onset of symptoms was March 17, 2023. 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 - Social history:: Smoking status: Patient reports the use of cigarette tobacco products, smokes one-half pack cigarettes per day. - Family history:: not pertinent. Screenin:07 [facility] ED Fall Risk Assessment (Adult) History of falling in the last 3 months, vc1 including since admission No falls in past 3 months (0 pts) Confusion or Disorientation No (0 pts) Intoxicated or Sedated No (0 pts) Impaired Gait No (0 pts) Mobility Assist Device Used No (0 pt) Altered Elimination No (0 pt) Score/Fall Risk Level 0 - 2 = Low Risk Oriented to surroundings, Maintained a safe environment, Educated pt \\T\\ family on fall prevention, incl call for assistance when getting out of bed. Abuse screen: Denies threats or abuse. Nutritional screening: No deficits noted. Tuberculosis screening: No symptoms or risk factors identified. Assessment: 04:22 Derm: Skin is pink, warm \\T\\ dry. ll3 04:30 General: Appears uncomfortable, Behavior is cooperative, anxious. Pain: Complains of ll3 pain in right upper quadrant and left upper quadrant Pain radiates to left low back and right low back Pain currently is 10 out of 10 on a pain scale. Quality of pain is described as sharp, Pain began 1 day ago. Is continuous. GI: Bowel sounds present X 4 quads. Abd is soft and non tender X 4 quads. Reports lower abdominal pain, upper abdominal pain, nausea, Patient currently denies constipation, diarrhea, vomiting. 05:07 Reassessment: No changes from previously documented assessment. Patient and/or family vc1 updated on plan of care and expected duration. Pain level reassessed. 06:09 Reassessment: No changes from previously documented assessment. Patient and/or family vc1 updated on plan of care and expected duration. Pain level reassessed. 07:00 Reassessment: No changes from previously documented assessment. report received from 1 night time nanny RN. 07:18 Reassessment: No changes from previously documented assessment. Patient and/or family ll1 updated on plan of care and expected duration. Pain level reassessed. Patient is alert, oriented x 3, equal unlabored respirations, skin warm/dry/pink. Patient states feeling better. 08:46 Reassessment: Patient appears in no apparent distress at this time. Patient and/or hb family updated on plan of care and expected duration. Pain level reassessed. Patient is alert, oriented x 3, equal unlabored respirations, skin warm/dry/pink. Vital Signs: 04:12 Pulse 91; Resp 18 S; Temp 97.5(O); Pulse Ox 98% on R/A; Weight 70.31 kg (R); Height 5 as6 ft. 9 in. (R); Pain 10/10; 04:14 BP 122 / 92; as6 04:45 BP 113 / 80; Pulse 80; Resp 18; Pulse Ox 98% on R/A; vc1 05:35 BP 114 / 77; Pulse 72; Resp 17; Pulse Ox 98% on R/A; vc1 06:00 BP 129 / 87; Pulse 76; Resp 18; Pulse Ox 99% on R/A; vc1 07:17 BP 113 / 84; Pulse 74; Resp 16; Pulse Ox 98% ; Pain 6/10; ll1 08:46 BP 126 / 80; Pulse 72; Resp 16; Pulse Ox 99% ; hb 04:12 Body Mass Index 22.89 (70.31 kg, 175.26 cm) as6 04:12 Pain Scale: Adult as6 07:17 Pain Scale: Adult ll1 ED Course: 03:50 Patient arrived in ED. ja2 03:57 Lorne Gottlieb MD is Attending Physician. sp4 04:13 Triage completed. as6 04:13 Arm band placed on. as6 04:46 Initial lab(s) drawn, by me, sent to lab. Inserted saline lock: 20 gauge in right ll3 antecubital area, using aseptic technique. Blood collected. 05:08 Patient has correct armband on for positive identification. Bed in low position. Call vc1 light in reach. Pulse ox on. NIBP on. 05:08 No provider procedures requiring assistance completed. vc1 05:20 CT Abd/Pelvis - IV Contrast Only In Process Unspecified. EDMS 06:59 Urine Drug Screen Sent. oe 06:59 Urine Drug Screen Sent. oe 06:59 Urinalysis W/Microscopic Sent. oe 07:00 Ramírez Flood MD is Hospitalizing Provider. sp4 07:07 Brian Gardner, CLARIBEL is Primary Nurse. ll1 09:42 Patient admitted, IV remains in place. ll1 Administered Medications: 04:45 Drug: metoCLOPramide IVP 10 mg Route: IVP; Site: right antecubital; ll3 06:16 Follow up: Response: No adverse reaction ll3 04:46 Drug: morphine IVP or IV 8 mg Route: IVP; Infused Over: 4 mins; Site: right antecubital;ll3 06:16 Follow up: Response: No adverse reaction; Marked relief of symptoms ll3 04:46 Drug: NS 0.9% IV 1000 ml Route: IV; Rate: 1 bolus; Site: right antecubital; ll3 06:22 Follow up: Response: No adverse reaction; IV Status: Completed infusion; IV Intake: ll3 1000ml 04:46 Drug: Ondansetron IVP 8 mg Route: IVP; Site: right antecubital; ll3 06:17 Follow up: Response: No adverse reaction ll3 04:46 Drug: Ketorolac IVP 30 mg Route: IVP; Site: right antecubital; ll3 06:16 Follow up: Response: No adverse reaction; Marked relief of symptoms ll3 06:22 Drug: NS 0.9% IV 1000 ml Route: IV; Rate: 125 ml/hr; Site: right antecubital; ll3 07:18 Follow up: Response: No adverse reaction; IV Status: Order to discontinue infusion; IV ll1 Intake: 400ml 07:16 Drug: D5-1/2 NS with KCl IV 20 mEq/L 1000 ml Route: IV; Rate: 125 ml/hr; Site: right ll1 antecubital; 09:42 Follow up: IV Status: Infusion continued upon admission; IV Intake: 200ml ll1 07:17 Drug: morphine IVP or IV 4 mg Route: IVP; Infused Over: 4 mins; Site: right antecubital;ll1 09:43 Follow up: Response: No adverse reaction; Pain is decreased; RASS: Alert and Calm (0) ll1 07:17 Drug: metoCLOPramide IVP 10 mg Route: IVP; Site: right antecubital; ll1 09:43 Follow up: Response: No adverse reaction ll1 Medication: 05:08 VIS not applicable for this client. vc1 Intake: 06:22 IV: 1000ml; Total: 1000ml. ll3 07:18 IV: 400ml; Total: 1400ml. ll1 09:42 IV: 200ml; Total: 1600ml. ll1 Outcome: 07:01 Decision to Hospitalize by Provider. sp4 09:42 Admitted to Tele accompanied by nurse, via wheelchair, room Room 203, with chart, ll1 Report called to Harika 09:42 Condition: stable 09:42 Instructed on the need for admit. 09:55 Patient left the ED. hb Signatures: Dispatcher [employer] EDMS Betsy Gee RN RN Eric Taylor Lynsay RN RN ll1 Polly Potts Ashby, RN RN as6 Shahid Gunn RN RN ll3 Radha Calvo RN RN vc1 Lorne Gottlieb MD MD sp4
[2023-03-18] MEDS ORDERED: D5.45NS W/KCL 20MEQ 1,000 ML IV ONE (07:12)
[2023-03-18 07:22] LABS: Urine Color Colorless (Yellow)
[2023-03-18 07:23] LABS: Specific Gravity 1.026 (1.005-1.030); Urine Bilirubin NEGATIVE (Negative); Urine Blood Negative (Negative); Urine Clarity Clear (Clear); Urine pH 5.5 (5.0-7.0)
[2023-03-18 07:24] LABS: Urine Glucose NEGATIVE (Negative); Urine Protein NEGATIVE (Negative); Urine Urobilinogen Normal mg/dL (0.2-1.0)
[2023-03-18 07:25] LABS: Urine Mucus Slight /HPF (None Seen); Urine RBC <5 /HPF (None Seen)
[2023-03-18 07:27] LABS: Barbiturates NEGATIVE (NEGATIVE); Benzodiazepines NEGATIVE (NEGATIVE); Cocaine NEGATIVE (NEGATIVE); METHAMPHETAM POSITIVE (NEGATIVE); Methadone NEGATIVE (NEGATIVE); Opiates POSITIVE (NEGATIVE); Phencyclidine NEGATIVE (NEGATIVE); THC Cannibis POSITIVE (NEGATIVE)
--- NOTE | 2023-03-18 07:53 | P.HP ---
Certification for Inpatient Patient admitted to: Inpatient With expected LOS: >2 Midnights Patient will require the following post-hospital care: None Practitioner: I am a practitioner with admitting privileges, knowledge of patient current condition, hospital course, and medical plan of care. Services: Services provided to patient in accordance with Admission requirements found in Title 42 Section 412.3 of the Code of Federal Regulations Patient History Date of Service: 03/18/23 Reason for admission: Acute Pancreatitis History of Present Illness: Service was provided via video visit/Tele-Medicine. For that reason, no physical examination was performed. Mr. Omar Johnson is a 47 year old male who has a past medical history of Raynaud's phenomenon who presents to the [facility] Emergency Department with abdominal pain. He reports that, yesterday morning, he developed significant mid-epigastric pain. He states that it has been progressively worsening. He states that it is sharp and radiates through to his back. He denies any obvious inciting or alleviating factors. He grades it a 7.5/10 in severity. He reports recently starting a new job, which has been quite stressful. He endorses drinking a 6 pack of beer per night over the last year. On review of systems, he reports chills, nausea, and vomiting, but denies any fevers, headaches, dizziness, syncope, numbness/tingling, chest pain, palpitations, shortness of breath, wheezing, cough, diarrhea, constipation, hematochezia, melena, dysuria, hematuria, myalgia, lower extremity edema, joint aches, or any other symptoms. He presents today for further evaluation. Upon presentation, his vital signs were stable. His laboratory studies were notable for a lipase of 1500. His UDS was positive for opiates, amphetamines, and THC (however, he was given morphine in ED). His CT abdomen/pelvis revealed, "1. Peripancreatic inflammatory changes, consistent with acute pancreatitis. No organized peripancreatic fluid collections. No evidence of pancreatic necrosis. 2. Mild diffuse fatty infiltration of the liver." In the Emergency Department, he was given metoclopramide, morphine, ondansetron, ketorolac, and 1 L Normal Saline. He was admitted to the General Internal Medicine Service under Dr. Carballo for further evaluation. Allergies No Known Allergies Allergy (Unverified 09/03/20 15:18) Home medications list reviewed: Yes - Past Medical/Surgical History Diabetic: No -: Pancreatitis -: Alcohol abuse -: Raynaud's phenomenon -: L knee surgery -: R knee surgery -: L eye surgery - Family History Family History: Reviewed- Non-Contributory - Social History Smoking Status: Current every day smoker Alcohol use: Yes CD- Drugs: Yes Caffeine use: Yes Review of Systems General: Chills Eyes: Unremarkable ENT: Unremarkable Respiratory: Unremarkable Cardiovascular: Unremarkable Gastrointestinal: Nausea, Vomiting, Abdominal Pain Genitourinary: Unremarkable Musculoskeletal: Unremarkable Integumentary: Unremarkable Neurological: Unremarkable Lymphatics: Unremarkable Physical Examination - Vital Signs Temperature: 97.5 F Blood Pressure: 129/87 Pulse: 76 Respirations: 18 Pulse Ox (%): 99 (room air) - Physical Exam General: Alert, Oriented x3, Mild distress Respiratory: Other (Appears to be breathing comfortably, in no respiratory distress. Speaking in full sentences.) Neurological: Normal speech, Normal affect - Studies Laboratory Data (last 24 hrs) 03/18/23 04:26: Sodium 133 L, Potassium 3.8, BUN 16, Creatinine 1.01, Glucose 122 H, Total Bilirubin 0.4, AST 25, ALT 57, Alkaline Phosphatase 83, Lipase 1500 H 03/18/23 04:26: WBC 8.60, Hgb 15.0, Hct 43.9, Plt Count 290 Assessment and Plan - Plan # Acute Alcoholic Pancreatitis # Alcohol Use Disorder # Fatty Liver Disease - suspect Alcohol-Induced He reports midepigastric pain consistent with acute pancreatitis. His lipase was elevated at 1500, and a CT abdomen and pelvis revealed findigns consistent with pancreatitis. His calculated BISAP score is 0, which is suggestive of a <1% mortality risk. - Evaluation thus far: - Reports mid-epigastric pain - Lipase = 1500 - CT abdomen/pelvis = "1. Peripancreatic inflammatory changes, consistent with acute pancreatitis. No organized peripancreatic fluid collections. No evidence of pancreatic necrosis. 2. Mild diffuse fatty infiltration of the liver." - Requested lipid panel - Management plan: - For pancreatitis: - Admit to Medicine - Placed NPO - Started Lactated Ringers' @ 125 mL/hr - PRN pain control - For alcohol use: - Counseled on the importance of alcohol cessation - Ordered CIWA protocol - Started chlordiazepoxide, thiamine, folic acid # Tobacco Use Disorder He reports smoking 0.5 pack/day for 15 years. - Counseled on the importance of tobacco cessation - Nicotine patch ordered # Substance Use Disorder - Methamphetamine, Marijuana He reports recreational use of methamphetamine and marijuana - Counseled on the importance of substance cessation Ramírez Flood M.D. Discharge Plan: Home Plan to discharge in: Greater than 2 days - Advance Directives Does patient have a Living Will: No Does patient have a Durable POA for Healthcare: No - Code Status/Comfort Care Code Status Assessed: Yes Code Status: Full Code
[2023-03-18] MEDS ORDERED: ONDANSETRON 4 MG/2 ML VIAL IV PRN (07:56)
[2023-03-18] MEDS ORDERED: MORPHINE 2 MG/ML SYR IV PRN (08:00)
[2023-03-18] MEDS: NICOTINE 7 MG/PAT TD SCH (09:00)
[2023-03-18] MEDS: FOLIC ACID 1 MG in NA CHLORIDE 0.9% 50 ML IV SCH (09:00)
[2023-03-18] MEDS: HYDROMORPHONE HCL 1 MG/ML INJ IV PRN ×2 (10:52→18:23)
[2023-03-18 11:08] VITALS: BMI 22.8
[2023-03-18] MEDS: Ringers Lactate 1,000 ML IV SCH ×3 (11:30→22:55)
[2023-03-18] MEDS: chlordiazePOXIDE HCl 25 MG CAP PO SCH ×2 (11:30→16:00)
[2023-03-18] MEDS: THIAMINE 200 MG/2 ML INJ IVP SCH (11:30)
[2023-03-18] MEDS ORDERED: HYDROMORPHONE HCL 1 MG/ML INJ IV ONE ×2 (12:10→21:42)
[2023-03-18] MEDS ORDERED: LORazepam 2 MG/ML VIAL IV ONE (13:05)
[2023-03-18] MEDS: DEXMEDETOMIDINE HCL 1,000 MCG in NA CHLORIDE 0.9% 490 ML IV SCH (14:31)
--- NOTE | 2023-03-18 15:00 | P.PN ---
Subjective Date of Service: 03/18/23 Chief Complaint: Acute Pancreatitis Patient has been complaining of uncontrolled abdominal pain. Rapid response was called on him because by report patient got up, rushed into a wall and fell. Patient examined and noted to be delirious. Physical Examination - Vital Signs Temperature: 97.0 F Blood Pressure: 119/89 Pulse: 77 Respirations: 18 Pulse Ox (%): 99 - Physical Exam General: In no apparent distress, Confused HEENT: Mucous membr. moist/pink Neck: Supple, JVD not distended Respiratory: Clear to auscultation bilaterally, Normal air movement Cardiovascular: No edema, Regular rate/rhythm, Normal S1 S2 Gastrointestinal: Soft and benign, Non-distended, No tenderness Musculoskeletal: No swelling Integumentary: No rashes, No cyanosis Neurological: Normal strength at 5/5 x4 extr - Studies Laboratory Data (last 24 hrs) 03/18/23 04:26: Sodium 133 L, Potassium 3.8, BUN 16, Creatinine 1.01, Glucose 122 H, Total Bilirubin 0.4, AST 25, ALT 57, Alkaline Phosphatase 83, Lipase 1500 H 03/18/23 04:26: WBC 8.60, Hgb 15.0, Hct 43.9, Plt Count 290 Assessment And Plan - Current Problems (Diagnosis) (1) Polysubstance abuse Current Visit: Yes Status: Acute (2) Acute alcoholic pancreatitis Current Visit: No Status: Acute (3) Alcohol abuse Current Visit: No Status: Acute (4) Tobacco abuse Current Visit: No Status: Acute (5) Alcohol withdrawal delirium Current Visit: Yes Status: Acute - Plan Acute Alcoholic Pancreatitis Alcohol withdrawal delirium Fatty Liver Disease - Alcohol-Induced Plan: Evaluation thus far: - Reports mid-epigastric pain - Lipase = 1500 - CT abdomen/pelvis = "1. Peripancreatic inflammatory changes, consistent with acute pancreatitis. No organized peripancreatic fluid collections. No evidence of pancreatic necrosis. 2. Mild diffuse fatty infiltration of the liver." - Requested lipid panel - Management plan: - For pancreatitis: - Admit to Medicine - Placed NPO - Started Lactated Ringers' @ 125 mL/hr - PRN pain control - For alcohol use: - Counseled on the importance of alcohol cessation - Ordered [place] protocol - Started chlordiazepoxide, thiamine, folic acid # Tobacco Use Disorder He reports smoking 0.5 pack/day for 15 years. - Counseled on the importance of tobacco cessation - Nicotine patch ordered # Substance Use Disorder - Methamphetamine, Marijuana He reports recreational use of methamphetamine and marijuana - Counseled on the importance of substance cessation
[2023-03-18] MEDS ORDERED: LORazepam 2 MG/ML VIAL IV PRN (17:00)
--- NOTE | 2023-03-18 18:43 | RAD REPORT ---
EXAM DESCRIPTION: CT - Head Brain Wo Cont - 03/18/2023 6:18 pm CLINICAL HISTORY: r/o Head injury COMPARISON: No comparisons TECHNIQUE: Noncontrast head CT images ad were obtained without IV contrast. Multiplanar reformats we re generated and reviewed. All CT scans are performed using dose optimization technique as appropriate and may include automated exposure control or mA/KV adjustment according to patient size. FINDINGS: No intracranial hemorrhage, mass, or edema. Midline structures are unremarkable. Normal ventricular caliber for age. Guido-white matter differentiation is preserved, without evidence of acute infarct. No abnormal extra- axial fluid collections. Mastoid air cells and visualized portions of the paranasal sinuses are clear. No acute bony findings. IMPRESSION: No evidence of an acute intracranial process.
[2023-03-19] MEDS: HYDROMORPHONE HCL 1 MG/ML INJ IV PRN ×6 (02:07→21:19)
[2023-03-19] MEDS: DEXMEDETOMIDINE HCL 1,000 MCG in NA CHLORIDE 0.9% 490 ML IV SCH ×2 (04:55→23:10)
[2023-03-19 05:13] LABS: Absolute Lymphocytes (CBC) 0.7 K/uL (0.7-4.9); Hematocrit 42.8 % (39.6-49.0); Lymphocytes % 5.2 % (15.3-44.8); MCV 99.9 fL (80-100); MPV 6.2 fL (7.6-11.3); RBC Red Blood Cell Count 4.28 M/uL (4.33-5.43)
[2023-03-19 05:16] LABS: Protime INR 1.07
[2023-03-19 05:34] LABS: Albumin 3.1 g/dL (3.4-5.0); Bilirubin Total 0.6 mg/dL (0.2-1.0); Magnesium 1.6 mg/dL (1.6-2.4); Phosphorus 4.3 mg/dL (2.5-4.9); Potassium 3.7 mEq/L (3.5-5.1); Protein, Total 6.4 g/dL (6.4-8.2)
[2023-03-19] MEDS: Ringers Lactate 1,000 ML IV SCH ×3 (06:44→23:13)
[2023-03-19] MEDS: chlordiazePOXIDE HCl 25 MG CAP PO SCH ×3 (08:00→15:34)
[2023-03-19] MEDS: ENOXAPARIN 40 MG/0.4 ML SQ SCH (08:32)
[2023-03-19] MEDS: NICOTINE 7 MG/PAT TD SCH (08:32)
[2023-03-19] MEDS: FOLIC ACID 1 MG in NA CHLORIDE 0.9% 50 ML IV SCH (08:32)
[2023-03-19] MEDS: THIAMINE 200 MG/2 ML INJ IVP SCH (08:32)
--- NOTE | 2023-03-19 12:15 | P.PN ---
Subjective Date of Service: 03/19/23 Chief Complaint: Acute Pancreatitis Patient is doing much better. He reports less abdominal pain, he is oriented x3, alert, no agitation. He is complaining of thirst and wants to drink water. Physical Examination - Vital Signs Temperature: 98.5 F Blood Pressure: 123/81 Pulse: 88 Respirations: 20 Pulse Ox (%): 96 Assessment And Plan - Current Problems (Diagnosis) (1) Polysubstance abuse Current Visit: Yes Status: Acute (2) Acute alcoholic pancreatitis Current Visit: No Status: Acute (3) Alcohol abuse Current Visit: No Status: Acute (4) Tobacco abuse Current Visit: No Status: Acute (5) Alcohol withdrawal delirium Current Visit: Yes Status: Acute - Plan Acute Alcoholic Pancreatitis Alcohol withdrawal delirium Fatty Liver Disease - Alcohol-Induced Plan: Evaluation thus far: - Reports mid-epigastric pain - Lipase = 1500 -> 1239 - CT abdomen/pelvis = "1. Peripancreatic inflammatory changes, consistent with acute pancreatitis. No organized peripancreatic fluid collections. No evidence of pancreatic necrosis. 2. Mild diffuse fatty infiltration of the liver." Management plan: - For pancreatitis: -Clear liquid diet -Continue Lactated Ringers' @ 125 mL/hr - PRN pain control - For alcohol use: - Counseled on the importance of alcohol cessation - Ordered [facility] protocol -Continue chlordiazepoxide, thiamine, folic acid -Weaning off Precedex drip. # Tobacco Use Disorder He reports smoking 0.5 pack/day for 15 years. - Nicotine patch. # Substance Use Disorder - Methamphetamine, Marijuana He reports recreational use of methamphetamine and marijuana -Substance abuse cessation advised.
--- NOTE | 2023-03-19 19:52 | RAD REPORT ---
EXAM DESCRIPTION: CT - Abdomen Pelvis W Contrast - 03/18/2023 6:55 am Abdomen Pelvis W Contrast CLINICAL HISTORY: ABD PAIN TECHNIQUE: Contiguous axial images obtained through the abdomen and pelvis following the uneventful administration of IV contrast. Coronal and sagittal reformatted images were provided. This exam was performed according to our departmental dose-optimization program, which includes autom ated exposure control, adjustment of the mA and/or kV according to patient size and/or use of iterati ve reconstruction technique. COMPARISON: February 2022 FINDINGS: Lung bases: Clear Liver: Mild diffuse fatty infiltration of the liver. Gallbladder and biliary system: Unremarkable Pancreas: Peripancreatic inflammatory changes, consistent with acute pancreatitis. Peripancreatic flu id extending to the left anterior pararenal space. No organized peripancreatic fluid collections. Andrey rly homogeneous enhancement of the pancreatic parenchyma, with no evidence of necrosis. Spleen: Unremarkable Adrenals: Unremarkable Kidneys: Normal renal cortical enhancement. No calculi. No hydronephrosis. GI: No obstruction. No appreciable mucosal thickening. Appendix: No findings to suggest acute appendicitis. Urinary bladder: Unremarkable Reproductive: Unremarkable as visualized Lymph nodes: No pathologically enlarged lymph nodes. Peritoneum: No focal fluid collection. No free air. Vessels: No abdominal aortic aneurysm. Abdominal wall: Unremarkable Bones: Unremarkable IMPRESSION: 1. Peripancreatic inflammatory changes, consistent with acute pancreatitis. No organiz ed peripancreatic fluid collections. No evidence of pancreatic necrosis. 2. Mild diffuse fatty infiltration of the liver. Electronically signed by: Rupert Juarez MD 03/18/2023 5:48 AM CDT Due to temporary technical issues with the PACS/Fluency reporting system, reports are being signed by the in house radiologists without review as a courtesy to insure prompt reporting. The interpreting radiologist is fully responsible for the content of the report.
[2023-03-20] MEDS: HYDROMORPHONE HCL 1 MG/ML INJ IV PRN ×8 (00:51→22:09)
[2023-03-20] MEDS: Ringers Lactate 1,000 ML IV SCH ×3 (06:39→23:28)
[2023-03-20] MEDS: ENOXAPARIN 40 MG/0.4 ML SQ SCH (08:15)
[2023-03-20] MEDS: chlordiazePOXIDE HCl 25 MG CAP PO SCH ×3 (08:15→16:24)
[2023-03-20] MEDS: THIAMINE 200 MG/2 ML INJ IVP SCH (08:15)
[2023-03-20] MEDS: NICOTINE 7 MG/PAT TD SCH (08:35)
--- NOTE | 2023-03-20 08:40 | RAD REPORT ---
EXAM DESCRIPTION: CT - Chest Abdomen Pelvis W Cont - 03/20/2023 8:12 am CLINICAL HISTORY: Chest and abdomen pain. lower back and flank pain COMPARISON: Abdomen Pelvis W Contrast dated 03/18/2023 TECHNIQUE: Approximately 100 mL nonionic IV contrast was administered to the patient. All CT scans are performed using dose optimization technique as appropriate and may include automated exposure control or mA/KV adjustment according to patient size. FINDINGS: Mild subsegmental atelectasis is present in both lung bases.Small bilateral pleural effusi ons are present.No intrathoracic adenopathy. Mild fatty liver. There is no evidence of intra or extrahepatic biliary dilatation. Edema is present surrounding the pancreas particularly the pancreatic tail. There is hypoenhancement of pancreatic tail measuring approximately 3 cm. Likely indicating necrotizing pancreatitis and head region. Portal venous system is patent although the splenic vein is quite thin. No abnormal fluid col lections. Laboratory changes are seen extending along the left aspect of the retroperitoneum. Mild fr ee fluid is seen in the abdomen and pelvis. No free air or bowel obstruction. Normal appendix. No pathologic lymphadenopathy in the abdomen or p jon. No fracture seen. IMPRESSION: Acute pancreatitis is present in the region of the pancreatic tail. hypoenhancement is s een on today's study suggests necrotizing pancreatitis is present involving the tail.
[2023-03-20] MEDS: FOLIC ACID 1 MG in NA CHLORIDE 0.9% 50 ML IV SCH (09:06)
[2023-03-20 10:16] LABS: Absolute Lymphocytes (CBC) 1.6 K/uL (0.7-4.9); Hematocrit 37.2 % (39.6-49.0); RBC Red Blood Cell Count 3.69 M/uL (4.33-5.43)
[2023-03-20 10:54] LABS: Potassium 4.1 mEq/L (3.5-5.1)
--- NOTE | 2023-03-20 10:58 | P.PN ---
Subjective Date of Service: 03/20/23 Chief Complaint: Acute Pancreatitis Patient reports flank and back pain today. His pain was initially in the epigastric area. No signs or symptoms of alcohol withdrawal. Physical Examination - Vital Signs Temperature: 98.5 F Blood Pressure: 122/77 Pulse: 95 Respirations: 20 Pulse Ox (%): 95 - Physical Exam General: Alert, In no apparent distress HEENT: Mucous membr. moist/pink Neck: JVD not distended Respiratory: Clear to auscultation bilaterally, Normal air movement Cardiovascular: No edema, Regular rate/rhythm, Normal S1 S2 Gastrointestinal: Soft and benign, Non-distended, Tenderness (Epigastrium) Musculoskeletal: No swelling Integumentary: No rashes, No cyanosis Neurological: Normal strength at 5/5 x4 extr Assessment And Plan - Current Problems (Diagnosis) (1) Polysubstance abuse Current Visit: Yes Status: Acute (2) Acute alcoholic pancreatitis Current Visit: No Status: Acute (3) Alcohol abuse Current Visit: No Status: Acute (4) Tobacco abuse Current Visit: No Status: Acute (5) Alcohol withdrawal delirium Current Visit: Yes Status: Acute - Plan Acute Alcoholic Pancreatitis Alcohol withdrawal delirium Fatty Liver Disease - Alcohol-Induced Plan: Evaluation thus far: - Reports mid-epigastric pain - Lipase = 1500 -> 1239 - CT abdomen/pelvis = "1. Peripancreatic inflammatory changes, consistent with acute pancreatitis. No organized peripancreatic fluid collections. No evidence of pancreatic necrosis. 2. Mild diffuse fatty infiltration of the liver." -Repeat CT: Acute pancreatitis is present in the region of the pancreatic tail. hypoenhancement is seen on today's study suggests necrotizing pancreatitis is present involving the tail. Management plan: - For pancreatitis: -Getting worse -start Clear liquid diet and advance as tolerated -Continue Lactated Ringers' @ 125 mL/hr -PRN pain control -Continue to monitor lipase daily, BMP daily, CBC daily. - For alcohol use: - Counseled on the importance of alcohol cessation - [facility] protocol - On chlordiazepoxide, thiamine, folic acid - Wean off Precedex drip # Tobacco Use Disorder He reports smoking 0.5 pack/day for 15 years. - Nicotine patch. -Smoking cessation advised. # Substance Use Disorder - Methamphetamine, Marijuana He reports recreational use of methamphetamine and marijuana -Substance abuse cessation advised.
[2023-03-20] MEDS: CEFTRIAXONE 1,000 MG in NA CHLORIDE 0.9% 50 ML IVPB SCH (16:24)
[2023-03-21] MEDS ORDERED: HYDROMORPHONE HCL 1 MG/ML INJ IV ONE ×2 (00:47→19:44)
[2023-03-21] MEDS: chlordiazePOXIDE HCl 25 MG CAP PO SCH ×4 (00:56→18:42)
[2023-03-21] MEDS: HYDROMORPHONE HCL 1 MG/ML INJ IV PRN ×9 (03:24→22:15)
[2023-03-21 05:13] LABS: Absolute Lymphocytes (CBC) 1.1 K/uL (0.7-4.9); Hematocrit 34.4 % (39.6-49.0); Lymphocytes % 9.4 % (15.3-44.8); MCV 99.8 fL (80-100); MPV 6.5 fL (7.6-11.3); RBC Red Blood Cell Count 3.45 M/uL (4.33-5.43)
[2023-03-21 05:26] LABS: Albumin 2.1 g/dL (3.4-5.0); Bilirubin Total 0.8 mg/dL (0.2-1.0); Magnesium 1.8 mg/dL (1.6-2.4); Potassium 3.5 mEq/L (3.5-5.1); Protein, Total 5.6 g/dL (6.4-8.2)
--- NOTE | 2023-03-21 06:55 | P.PN ---
Date of Service: 03/21/23 Subjective: requiring pain medication every 2 hours, feels worsened over past 2 days, with maybe some slight improvement this morning reports pain has shifted to back and flank as well over past 2 days dark urine (ab), no BM, +flatus ROS: 10 point ROS as noted above, otherwise negative Physical Exam: GEN: Alert, oriented, uncomfortable appearing HEENT: Normal conjunctiva, sclera anicteric CV: Regular rate and rhythm, no edema Pulm: Nonlabored respirations on room air ABD: Soft, moderate-severe epigastric tenderness, moderate b/l flank tenderness, nondistended Integumentary: No rashes Neuro: Normal speech, normal affect vitals reviewed Problem List: Acute alcoholic pancreatitis, necrotizing Alcohol withdrawal delirium, resolved Polysubstance abuse Alcohol Abuse Tobacco abuse Acute alcoholic pancreatitis, necrotizing Alcohol withdrawal delirium, resolved admission CT abdomen/pelvis ="1. Peripancreatic inflammatory changes, consistent with acute pancreatitis. No organized peripancreatic fluid collections. No evidence of pancreatic necrosis. 2. Mild diffuse fatty infiltration of the liver." Repeat CT (03/20): Acute pancreatitis is present in the region of the pancreatic tail. hypoenhancement measuring ~3cm is seen on today's study suggests necrotizing pancreatitis is present involving the tail. NPO with a few ice chips, IVF Pain medication as needed - dilaudid 1mg q2h general surgery consulted (03/21)- Dr. Bell recommends transfer to tertiary care center for higher level of care due to morbidity/mortality associated with necrotizing pancreatitis continue thiamine, folic acid Precedex dc'd 4 am 03/21, was on minimal dose on 03/20. started due to withdrawal symptoms/delirium concern monitor closely continue [facility] protocol started on rocephin 03/20 empirically ID consulted Added Flagyl 03/21 for anaerobic coverage Alcohol Abuse Tobacco abuse Polysubstance abuse He reports recreational use of methamphetamine and marijuana He reports smoking 0.5 pack/day for 15 years. Smoking and Substance abuse cessation advised on admission. Patient placed on Nicotine patch VTE: Lovenox Code: Full Dispo: transfer initiated to [facility]
[2023-03-21] MEDS: Ringers Lactate 1,000 ML IV SCH ×2 (07:35→16:03)
[2023-03-21] MEDS: CEFTRIAXONE 1,000 MG in NA CHLORIDE 0.9% 50 ML IVPB SCH (08:39)
[2023-03-21] MEDS: ENOXAPARIN 40 MG/0.4 ML SQ SCH (08:39)
[2023-03-21] MEDS: THIAMINE 200 MG/2 ML INJ IVP SCH (08:42)
[2023-03-21] MEDS: FOLIC ACID 1 MG in NA CHLORIDE 0.9% 50 ML IV SCH (08:48)
[2023-03-21] MEDS: NICOTINE 7 MG/PAT TD SCH (08:58)
--- NOTE | 2023-03-21 11:38 | P.CNS ---
Date of Consult: 03/21/23 Chief Complaint: Acute Pancreatitis History of Present Illness: Patient is a 47 yo male with a past medical history of pancreatitis, alcohol abuse and raynaud's phenomenon who presented to the ED with complaints of abdominal pain. He reports experiencing mid-epigastric pain that began suddenly while at work which had been worsening and led him to the emergency department. Patient reports previous diagnoses of pancreatitis in the past. CT abdomen 03/18 obtained in the ED which showed "1. Peripancreatic inflammatory changes, consistent with acute pancreatitis. No organized peripancreatic fluid collections. No evidence of pancreatic necrosis. 2. Mild diffuse fatty infiltration of the liver." He was admitted for further management and monitoring. Repeat CT abdomen 03/20 showed "Acute pancreatitis is present in the region of the pancreatic tail. hypoenhancement is seen on today's study suggests necrotizing pancreatitis is present involving the tail." General surgery and ID were consulted. Allergies No Known Allergies Allergy (Unverified 09/03/20 15:18) Home medications list reviewed: Yes Home Medications: NK [No Home Meds] 03/19/23 - Past Medical/Surgical History Diabetic: No -: Pancreatitis -: Alcohol abuse -: Raynaud's phenomenon -: L knee surgery -: R knee surgery -: L eye surgery - Social History Smoking Status: Current every day smoker Alcohol use: Yes CD- Drugs: Yes Caffeine use: Yes Place of Residence: Home Review of Systems 10-point ROS is otherwise unremarkable General: Weakness Gastrointestinal: Abdominal Pain (07/23) Physical Examination Temp Pulse Resp BP Pulse Ox 99.5 F 102 H 22 H 144/62 H 91 03/21/23 08:00 03/21/23 11:00 03/21/23 11:00 03/21/23 11:03/21/23 08:38 General: Alert, Oriented x3, Moderate distress HEENT: Atraumatic, Normocephalic Neck: Supple, JVD not distended Respiratory: Clear to auscultation bilaterally, Normal air movement Cardiovascular: No edema, Normal pulses Gastrointestinal: Normal bowel sounds, Tenderness, Guarding Musculoskeletal: No clubbing, No swelling Integumentary: No rashes, No breakdown Neurological: Normal speech, Normal tone, Normal affect Laboratory Data - Reviewed Microbiology Data - Reviewed Imagings Data: - Reviewed Conclusions/Impression: Problem List Alcohol Abuse Polysubstance abuse Mild protein calorie malnutrition Necrotizing Pancreatitis Necrotizing Pancreatitis - Hx of pancreatitis in past. Alcohol and substance abuse. - CT abdomen 03/18: "1. Peripancreatic inflammatory changes, consistent with acute pancreatitis. No organized peripancreatic fluid collections. No evidence of pancreatic necrosis. 2. Mild diffuse fatty infiltration of the liver." - CT abdomen 03/20: "Acute pancreatitis is present in the region of the pancreatic tail. hypoenhancement is seen on today's study suggests necrotizing pancreatitis is present involving the tail." - Currently on Rocephin (started 03/20) - General surgery consulted; recommended transfer for higher level of care. Recommendations - Add Flagyl IV for anaerobic coverage - Continue supportive care - Monitor WBC and fever trends Transfer to tertiary facility for higher level of care in process. ID will follow up and monitor patient closely. Case discussed with Adán Thacker
--- NOTE | 2023-03-21 14:09 | P.DS ---
Admission Date: 03/18/23 Discharge Date: 03/21/23 Reason for Admission: Acute Pancreatitis Consultations: General Surgery - Dr. Bell Infectious Disease - Dr. Joe Brief History of Present Illness: 47yo M, PMH: Raynaud's phenomenon Patient presents to the [facility] Emergency Department with abdominal pain. He reports that, yesterday morning, he developed significant mid-epigastric pain. He states that it has been progressively worsening. He states that it is sharp and radiates through to his back. He denies any obvious inciting or alleviating factors. He grades it a 7.5/10 in severity. He reports recently starting a new job, which has been quite stressful. He endorses drinking a 6 pack of beer per night over the last year. On review of systems, he reports chills, nausea, and vomiting, but denies any fevers, headaches, dizziness, syncope, numbness/tingling, chest pain, palpitations, shortness of breath, wheezing, cough, diarrhea, constipation, hematochezia, melena, dysuria, hematuria, myalgia, lower extremity edema, joint aches, or any other symptoms. He presents today for further evaluation. Upon presentation, his vital signs were stable. His laboratory studies were notable for a lipase of 1500. His UDS was positive for opiates, amphetamines, and THC (however, he was given morphine in ED). His CT abdomen/pelvis revealed, "1. Peripancreatic inflammatory changes, consistent with acute pancreatitis. No organized peripancreatic fluid collections. No evidence of pancreatic necrosis. 2. Mild diffuse fatty infiltration of the liver." In the Emergency Department, he was given metoclopramide, morphine, ondansetron, ketorolac, and 1 L Normal Saline. He was admitted to the General Internal Medicine Service under Dr. Carballo for further evaluation. Hospital Course: Problem List: Acute alcoholic pancreatitis, necrotizing Alcohol withdrawal delirium, resolved Polysubstance abuse Alcohol Abuse Tobacco abuse Physical Exam: GEN: Alert, oriented, uncomfortable appearing HEENT: Normal conjunctiva, sclera anicteric CV: Regular rate and rhythm, no edema Pulm: Nonlabored respirations on room air ABD: Soft, moderate-severe epigastric tenderness, moderate b/l flank tenderness, nondistended Integumentary: No rashes Neuro: Normal speech, normal affect Vital Signs/Physical Exam: Temp Pulse Resp BP Pulse Ox 99.5 F 102 H 22 H 144/62 H 91 03/21/23 08:00 03/21/23 11:00 03/21/23 12:34 03/21/23 11:00 03/21/23 08:38 Laboratory Data at Discharge: WBC 11.90 thou/uL (4.3-10.9) H 03/21/23 04:52 Hgb 11.6 g/dL (13.6-17.9) L 03/21/23 04:52 Hct 34.4 % (39.6-49.0) L 03/21/23 04:52 Plt Count 167 thou/uL (152-406) 03/21/23 04:52 PT 11.8 SECONDS (9.5-12.5) 03/19/23 04:55 INR 1.07 03/19/23 04:55 Sodium 131 mEq/L (136-145) L 03/21/23 04:52 Potassium 3.5 mEq/L (3.5-5.1) D 03/21/23 04:52 BUN 10 mg/dL (7-18) 03/21/23 04:52 Creatinine 0.63 mg/dL (0.70-1.30) L 03/21/23 04:52 Glucose 83 mg/dL (74-106) 03/21/23 04:52 Phosphorus 2.0 mg/dL (2.5-4.9) L 03/21/23 04:52 Magnesium 1.8 mg/dL (1.6-2.4) 03/21/23 04:52 Total Bilirubin 0.8 mg/dL (0.2-1.0) 03/21/23 04:52 AST 13 U/L (15-37) L 03/21/23 04:52 ALT 18 U/L (16-61) 03/21/23 04:52 Alkaline Phosphatase 48 U/L (45-117) 03/21/23 04:52 Triglycerides 64 mg/dL (<150) 03/19/23 04:55 Cholesterol 163 mg/dL (<200) 03/19/23 04:55 HDL Cholesterol 48 mg/dL (40-60) 03/19/23 04:55 Cholesterol/HDL Ratio 3.40 03/19/23 04:55 Lipase 65 U/L (13-75) 03/21/23 04:52 Home Medications: NK [No Home Meds] 03/19/23 Followup: NONE,NONE [Primary Care Provider] - Time spent managing pt's care (in minutes): 45
--- NOTE | 2023-03-21 15:08 | CON ---
Date of Consultation: 03/21/2023 Diagnoses: Acute pancreatitis, necrotizing pancreatitis. History Of Present Illness: This is the case of a 47-year-old patient, admitted to the hospital 4 da ys ago with abdominal pain. Today, a CAT scan was done of his abdomen after finding out he has acute pancreatitis few days ago and shows a necrotizing pancreatitis, and an emergent surgical consult was obtained. The patient has history of pancreatitis in the past, also has history of alcohol abuse. He describes his pain starting in the epigastric going to his back, in the last few days moving to th e back a little bit more. He denies any trauma. Denies any dysuria, hematuria, hematochezia, or awilda nahomi. Initially on 03/18/2023, the patient had a CAT scan, but at that moment did not show any signs of necrosis, although shows peripancreatic inflammatory changes consistent with acute pancreatitis wi th no organized fluid collection or any necrosis and that is different from today's diagnosis. Radio logist commented that he has distal pancreas necrotizing pancreatitis. The patient remained with kd e pain. Past Medical History: Includes Buerger disease, pancreatitis, psoriasis. Past Surgical History: Surgeries include left knee surgeries. Allergies: NONE. Social History: He smokes about half pack of cigarettes a day. He drinks alcohol daily. Family History: Noncontributory. Review of Systems: Abdominal pain epigastric and on his mid back. Physical Examination: General: The patient is awake, alert. HEENT: Pupils are equal and reactive. Anicteric. Neck: Supple. Chest: Clear. Abdomen: Epigastric tenderness and upper abdominal tenderness with guarding. Rectal: Deferred. Extremities: Good capillary refill. Laboratory Data: Blood work shows the patient came on 03/18 with lipase of 1500, LFTs normal. Sodiu m at this moment is 131 with calcium of 8.2, triglycerides 64, lipase came down to 65 with chloride o f 101. Toxicology from 03/18 opioids positive, amphetamine positive, and THC screen positive. CAT s can of abdomen and pelvis from 03/18 and 03/[address] Purvis as edema surrounding, particul nia the pancreatic tail. There is hypoenhancement of the pancreatic tail measuring about 3 cm, like ly indicating necrotizing pancreatitis. Portal venous system seems to be patent and splenic pain is quite thin as per radiologist. Inflammatory changes extended along the left aspect of the retroperit oneum, mild free fluid in the abdomen and pelvis. No free air. Assessment: A 47-year-old patient admitted initially with acute pancreatitis developed into necrotiz ing pancreatitis and I discussed with this patient and with the primary doctor that this patient need s to be in a tertiary center. Mortality of this about 40% in a good setting. We do not have the cap ability to address this issue surgically in this institution. For that reason, I would request the [facility] doctor to initiate the transfer into a higher level of care. The patient understands. I know him from before, his friends too. He understands he is going to work on his alcohol consumption and he understands also the hospital's limitations. Now, he wants to be transferred to a higher level o f care after he understands the options he has and also the mortality associated with this diagnosis. HM/MODL Voice ID: [id number] Report ID: [id number]
[2023-03-21] MEDS ORDERED: Ringers Lactate 1,000 ML IV ONE (19:44)
[2023-03-22] MEDS: Ringers Lactate 1,000 ML IV SCH ×3 (00:47→17:10)
[2023-03-22] MEDS: chlordiazePOXIDE HCl 25 MG CAP PO SCH ×3 (00:47→17:10)
[2023-03-22] MEDS: HYDROMORPHONE HCL 1 MG/ML INJ IV PRN ×2 (00:49→04:15)
[2023-03-22 05:50] LABS: Absolute Lymphocytes (CBC) 1.2 K/uL (0.7-4.9); Hematocrit 34.3 % (39.6-49.0); Lymphocytes % 11.8 % (15.3-44.8); MCV 100.1 fL (80-100); MPV 6.7 fL (7.6-11.3); RBC Red Blood Cell Count 3.43 M/uL (4.33-5.43)
[2023-03-22 05:57] LABS: Albumin 2.1 g/dL (3.4-5.0); Bilirubin Total 0.7 mg/dL (0.2-1.0); Potassium 3.1 mEq/L (3.5-5.1); Protein, Total 5.8 g/dL (6.4-8.2)
--- NOTE | 2023-03-22 06:59 | P.PN ---
Date of Service: 03/22/23 Subjective: dilaudid increased last night Pain is more tolerable today; appears more comfortable in bed Doesnt feel "as swollen in the belly" this morning Accepted for transfer; waiting on bed no BM, +flatus; no nausea/vomiting, afebrile ROS: 10 point ROS as noted above, otherwise negative Physical Exam: GEN: Alert, oriented x3 HEENT: Normal conjunctiva, sclera anicteric CV: Regular rate and rhythm with intermittent tachycardia, no edema Pulm: Nonlabored respirations on room air ABD: Soft, moderate epigastric tenderness, mild-moderate b/l flank tenderness, nondistended Integumentary: No rashes Neuro: Normal speech, normal affect vitals reviewed Problem List: Acute alcoholic pancreatitis, necrotizing Alcohol withdrawal delirium, resolved Polysubstance abuse Alcohol Abuse Tobacco abuse Acute alcoholic pancreatitis, necrotizing Alcohol withdrawal delirium, resolved initial CT abdomen/pelvis ="1. Peripancreatic inflammatory changes, consistent with acute pancreatitis. No organized peripancreatic fluid collections. No evidence of pancreatic necrosis. 2. Mild diffuse fatty infiltration of the liver." Repeat CT (03/20): Acute pancreatitis is present in the region of the pancreatic tail. hypoenhancement measuring ~3cm is seen on today's study suggests necrotizing pancreatitis is present involving the tail. NPO with a few ice chips, IVF PICC ordered 03/22, to initiate TPN Pain medication as needed - dilaudid 2mg q3h - increased on 03/21 evening general surgery consulted (03/21)- Dr. Bell recommends transfer to tertiary care center for higher level of care due to morbidity/mortality associated with necrotizing pancreatitis accepted, pending bed - telemetry continue thiamine, folic acid Precedex dc'd 4 am 03/21, was on minimal dose on 03/20. started due to withdrawal symptoms/delirium withdrawal symptoms have improved some anxiety remains, but seems more due to pancreatitis continue librium has not required additional benzo PRN doses continue CIWA protocol started on rocephin & flagyl empirically ID consulted change abx to merrem 03/22 pt remains afebrile, lipase improving, leukocytosis improved Alcohol Abuse Tobacco abuse Polysubstance abuse He reports recreational use of methamphetamine and marijuana He reports smoking 0.5 pack/day for 15 years. Smoking and Substance abuse cessation advised on admission. Patient placed on Nicotine patch VTE: Lovenox Code: Full Dispo: transfer initiated to tertiary [facility] accepted; pending bed availability
[2023-03-22] MEDS: ENOXAPARIN 40 MG/0.4 ML SQ SCH (08:20)
[2023-03-22] MEDS: THIAMINE 200 MG/2 ML INJ IVP SCH (08:21)
[2023-03-22] MEDS: HYDROMORPHONE HCL 2 MG/ML inj IV PRN ×6 (08:22→23:19)
[2023-03-22] MEDS: FOLIC ACID 1 MG in NA CHLORIDE 0.9% 50 ML IV SCH (08:22)
[2023-03-22] MEDS: CEFTRIAXONE 1,000 MG in NA CHLORIDE 0.9% 50 ML IVPB SCH (08:22)
[2023-03-22] MEDS ORDERED: METRONIDAZOLE 500mg IVPB 500 MG/100 ML BAG IV SCH (09:00)
[2023-03-22] MEDS: NICOTINE 7 MG/PAT TD SCH (10:33)
--- NOTE | 2023-03-22 12:11 | PN ---
Subjective: Patient is lying in ICU bed. Continued to have abdominal pain. Denies any other proble ms today. No fevers. Tolerating antibiotic well. Objective: Vital signs: Reviewed. Lungs: Basal crackles. Heart: S1, S2. Regular. Abdomen: Right upper quadrant discomfort on slight touch. Laboratory Data: Reviewed. Assessment And Plan: Lipase improving, leukocytosis improving, anemia of chronic disease, alcohol ab use with necrotizing pancreatitis. Continue IV hydration and start IV nutrition. Consider starting meropenem. We will follow patient. Discontinue Rocephin and start meropenem. Continue Flagyl. NF/MODL Voice ID: [id number] Report ID: [id number]
[2023-03-22] MEDS: Meropenem 1,000 MG in NA CHLORIDE 0.9% 100 ML IV SCH ×2 (14:21→17:00)
--- NOTE | 2023-03-22 16:24 | RAD REPORT ---
EXAM DESCRIPTION: RAD - Chest Single View - 03/22/2023 4:03 pm CLINICAL HISTORY: Picc line placement COMPARISON: Abdomen 1 View (KUB) dated 09/04/2020 FINDINGS: Portable chest was obtained following placement of a right upper extremity PICC line. The catheter tip projects over the right atrium. 2 cm of retraction may be considered..
[2023-03-22] MEDS ORDERED: AA 5%/D20W/ELECTROLYTES-TPN 2,000 ML, Lipids 20% 250 ML with MULTIVITAMINS INJ 10 ML IV SCH ×3 (17:00)
--- NOTE | 2023-03-22 17:14 | RAD REPORT ---
EXAM DESCRIPTION: RAD - Chest Single View - 03/22/2023 5:08 pm CLINICAL HISTORY: Picc line placement COMPARISON: Chest Single View dated 03/22/2023; Abdomen 1 View (KUB) dated 09/04/2020 FINDINGS: Portable chest was obtained following placement of a right upper extremity PICC line. The catheter tip projects over the SVC..
[2023-03-22] MEDS ORDERED: Ringers Lactate 1,000 ML IV SCH (18:00)
[2023-03-22 20:40] VITALS: O2SAT 91
[2023-03-22] MEDS ORDERED: Mupirocin NASAL 2 APPL/1 GM TUBE NAS SCH (21:00)
--- NOTE | 2023-03-22 21:08 | P.DS ---
Admission Date: 03/18/23 Discharge Date: 03/22/23 Reason for Admission: Acute Pancreatitis Procedures: CT abdomen pelvis 03/18/2023 FINDINGS: Lung bases: Clear Liver: Mild diffuse fatty infiltration of the liver. Gallbladder and biliary system: Unremarkable Pancreas: Peripancreatic inflammatory changes, consistent with acute pancreatitis. Peripancreatic fluid extending to the left anterior pararenal space. No organized peripancreatic fluid collections. Fairly homogeneous enhancement of the pancreatic parenchyma, with no evidence of necrosis. Spleen: Unremarkable Adrenals: Unremarkable Kidneys: Normal renal cortical enhancement. No calculi. No hydronephrosis. GI: No obstruction. No appreciable mucosal thickening. Appendix: No findings to suggest acute appendicitis. Urinary bladder: Unremarkable Reproductive: Unremarkable as visualized Lymph nodes: No pathologically enlarged lymph nodes. Peritoneum: No focal fluid collection. No free air. Vessels: No abdominal aortic aneurysm. Abdominal wall: Unremarkable Bones: Unremarkable IMPRESSION: 1. Peripancreatic inflammatory changes, consistent with acute pancreatitis. No organized peripancreatic fluid collections. No evidence of pancreatic necrosis. 2. Mild diffuse fatty infiltration of the liver CT head 03/18/2023 FINDINGS: No intracranial hemorrhage, mass, or edema. Midline structures are unremarkable. Normal ventricular caliber for age. Guido-white matter differentiation is preserved, without evidence of acute inf arct. No abnormal extra-axial fluid collections. Mastoid air cells and visualized portions of the paranasal sinuses are clear. No acute bony findings. IMPRESSION: No evidence of an acute intracranial process. CT chest abdomen pelvis 03/20/2023 FINDINGS: Mild subsegmental atelectasis is present in both lung bases.Small bilateral pleural effusions are present.No intrathoracic adenopathy. Mild fatty liver. There is no evidence of intra or extrahepatic biliary dilatation. Edema is present surrounding the pancreas particularly the pancreatic tail. There is hypoenhancement of pancreatic tail measuring approximately 3 cm. Likely indicating necrotizing pancreatitis and head region. Portal venous system is patent although the splenic vein is quite thin. No abnormal fluid collections. Laboratory changes are seen extending along the left aspect of the retroperitoneum. Mild free fluid is seen in the abdomen and pelvis. No free air or bowel obstruction. Normal appendix. No pathologic lymphadenopathy in the abdomen or pelvis. No fracture seen. IMPRESSION: Acute pancreatitis is present in the region of the pancreatic tail. hypoenhancement is seen on today's study suggests necrotizing pancreatitis is present involving the tail. Chest x-ray 03/22/2023 FINDINGS: Portable chest was obtained following placement of a right upper extremity PICC line. The catheter tip projects over the SVC.. Brief History of Present Illness: Mr. Omar Johnson is a 47 year old male who has a past medical history of Raynaud's phenomenon who presents to the [facility] Emergency Department with abdominal pain. He reports that, yesterday morning, he developed significant mid-epigastric pain. He states that it has been progressively worsening. He states that it is sharp and radiates through to his back. He denies any obvious inciting or alleviating factors. He grades it a 7.5/10 in severity. He reports recently starting a new job, which has been quite stressful. He endorses drinking a 6 pack of beer per night over the last year. On review of systems, he reports chills, nausea, and vomiting, but denies any fevers, headaches, dizziness, syncope, numbness/tingling, chest pain, palpitations, shortness of breath, wheezing, cough, diarrhea, constipation, hematochezia, melena, dysuria, hematuria, myalgia, lower extremity edema, joint aches, or any other symptoms. He presents today for further evaluation. Hospital Course: Patient was admitted with acute pancreatitis, his lipase continues to trend down although his pain worsened over the course of the next few days, he also had acute alcohol withdrawal/delirium which was treated with Precedex/Ativan. He has been weaned off of Precedex/Ativan currently is taking Librium for alcohol withdrawal. He has required high doses of pain medication, his CT scan was repeated on 03/20/2023 which showed necrotizing pancreatitis, patient was evaluated by general surgery who recommended transfer to tertiary center for further evaluation of necrotizing pancreatitis. Patient was accepted for transfer tonight. Problem List: Acute alcoholic pancreatitis, necrotizing Alcohol withdrawal delirium, resolved Polysubstance abuse Alcohol Abuse Tobacco abuse <Conner Andrade - Last Filed: 03/22/23 21:03> Admission Date: 03/18/23 Discharge Date: 03/22/23 <Dereck Goodson - Last Filed: 03/25/23 16:18> Disposition: TRANSFER TO [facility] Vital Signs/Physical Exam: Temp Pulse Resp BP Pulse Ox 99.9 F 98 H 17 139/96 H 91 05/10/23 16:00 03/22/23 18:00 03/22/23 20:20 03/22/23 18:00 03/22/23 20:20 Laboratory Data at Discharge: WBC 9.90 thou/uL (4.3-10.9) 03/22/23 04:24 Hgb 11.8 g/dL (13.6-17.9) L 03/22/23 04:24 Hct 34.3 % (39.6-49.0) L 03/22/23 04:24 Plt Count 186 thou/uL (152-406) 03/22/23 04:24 PT 11.8 SECONDS (9.5-12.5) 03/19/23 04:55 INR 1.07 03/19/23 04:55 Sodium 133 mEq/L (136-145) L 03/22/23 04:24 Potassium 3.1 mEq/L (3.5-5.1) L 03/22/23 04:24 BUN 6 mg/dL (7-18) L 03/22/23 04:24 Creatinine 0.53 mg/dL (0.70-1.30) L 03/22/23 04:24 Glucose 89 mg/dL (74-106) 03/22/23 04:24 Phosphorus 2.0 mg/dL (2.5-4.9) L 03/21/23 04:52 Magnesium 2.0 mg/dL (1.6-2.4) 03/22/23 04:24 Total Bilirubin 0.7 mg/dL (0.2-1.0) 03/22/23 04:24 AST 15 U/L (15-37) 03/22/23 04:24 ALT 18 U/L (16-61) 03/22/23 04:24 Alkaline Phosphatase 52 U/L (45-117) 03/22/23 04:24 Triglycerides 64 mg/dL (<150) 03/19/23 04:55 Cholesterol 163 mg/dL (<200) 03/19/23 04:55 HDL Cholesterol 48 mg/dL (40-60) 03/19/23 04:55 Cholesterol/HDL Ratio 3.40 03/19/23 04:55 Lipase 55 U/L (13-75) 03/22/23 04:24 <Conner Andrade - Last Filed: 03/22/23 21:03> Vital Signs/Physical Exam: Temp Pulse Resp BP Pulse Ox 97.7 F 63 16 127/87 92 03/23/23 12:00 03/23/23 16:00 03/23/23 14:00 03/23/23 15:00 03/23/23 06:00 Laboratory Data at Discharge: WBC 9.10 thou/uL (4.3-10.9) 03/23/23 04:30 Hgb 11.2 g/dL (13.6-17.9) L 03/23/23 04:30 Hct 32.2 % (39.6-49.0) L 03/23/23 04:30 Plt Count 196 thou/uL (152-406) 03/23/23 04:30 PT 11.8 SECONDS (9.5-12.5) 03/19/23 04:55 INR 1.07 03/19/23 04:55 Sodium 135 mEq/L (136-145) L 03/23/23 04:30 Potassium 3.1 mEq/L (3.5-5.1) L 03/23/23 04:30 BUN 7 mg/dL (7-18) 03/23/23 04:30 Creatinine 0.57 mg/dL (0.70-1.30) L 03/23/23 04:30 Glucose 180 mg/dL (74-106) H 03/23/23 04:30 Phosphorus 2.0 mg/dL (2.5-4.9) L 03/21/23 04:52 Magnesium 2.1 mg/dL (1.6-2.4) 03/23/23 04:30 Total Bilirubin 0.4 mg/dL (0.2-1.0) 03/23/23 04:30 AST 16 U/L (15-37) 03/23/23 04:30 ALT 20 U/L (16-61) 03/23/23 04:30 Alkaline Phosphatase 50 U/L (45-117) 03/23/23 04:30 Triglycerides 64 mg/dL (<150) 03/19/23 04:55 Cholesterol 163 mg/dL (<200) 03/19/23 04:55 HDL Cholesterol 48 mg/dL (40-60) 03/19/23 04:55 Cholesterol/HDL Ratio 3.40 03/19/23 04:55 Lipase 78 U/L (13-75) H 03/23/23 04:30 <Dereck Goodson - Last Filed: 03/25/23 16:18> <Conner Andrade - Last Filed: 03/22/23 21:03> Time spent managing pt's care (in minutes): 45 <Dereck Goodson - Last Filed: 03/25/23 16:18> Home Medications: NK [No Home Meds] 03/19/23 Physician Discharge Instructions: Patient presented with mid-epigastric pain that has been progressively worsening. He was noted to have acute alcoholic pancreatitis during his intial evaluation. Initial CT revealed, "Peripancreatic inflammatory changes, consistent with acute pancreatitis. No organized peripancreatic fluid collections. No evidence of pancreatic necrosis. Mild diffuse fatty infiltration of the liver." During his hospitalization, his repeat CT 03/20 reported "Acute pancreatitis is present in the region of the pancreatic tail. hypoenhancement measuring ~3cm is seen suggesting necrotizing pancreatitis is present involving the tail." General Surgery was consulted. Dr. Bell recommended transfer to tertiary care center for higher level of care due to morbidity/mortality associated with necrotizing pancreatitis. Transfer was initiated 03/21. Lipase was elevated on admission (1500) now stabilized. Infectious Disease was consulted. He was started on Rocephin empirically 03/20, and Flagyl was added 03/21. Followup: NONE,NONE [Primary Care Provider] -
[2023-03-23] MEDS: Meropenem 1,000 MG in NA CHLORIDE 0.9% 100 ML IV SCH ×2 (01:04→08:24)
[2023-03-23] MEDS: chlordiazePOXIDE HCl 25 MG CAP PO SCH ×2 (01:04→08:45)
[2023-03-23] MEDS: HYDROMORPHONE HCL 2 MG/ML inj IV PRN ×5 (02:23→14:59)
[2023-03-23 04:57] LABS: Absolute Lymphocytes (CBC) 1.1 K/uL (0.7-4.9); Hematocrit 32.2 % (39.6-49.0); Lymphocytes % 12.3 % (15.3-44.8); MCV 99.6 fL (80-100); MPV 6.4 fL (7.6-11.3); RBC Red Blood Cell Count 3.23 M/uL (4.33-5.43)
[2023-03-23 05:30] LABS: Albumin 2.2 g/dL (3.4-5.0); Bilirubin Total 0.4 mg/dL (0.2-1.0); Magnesium 2.1 mg/dL (1.6-2.4); Potassium 3.1 mEq/L (3.5-5.1); Protein, Total 5.9 g/dL (6.4-8.2)
[2023-03-23] MEDS: KCL 20 MEQ/100 mL IVPB 20 MEQ/100 ML BAG IV SCH ×3 (05:55→11:33)
--- NOTE | 2023-03-23 08:17 | P.PN ---
Date of Service: 03/23/23 Subjective: Pain is less tolerable today; needing more frequent pain medication still waiting on transfer bed no BM, +flatus; no nausea/vomiting, afebrile ROS: 10 point ROS as noted above, otherwise negative Physical Exam: GEN: Alert, oriented x3 HEENT: Normal conjunctiva, sclera anicteric CV: Regular rate and rhythm with intermittent tachycardia, no edema Pulm: Nonlabored respirations on room air ABD: Soft, moderate epigastric tenderness, mild-moderate b/l flank tenderness, nondistended Integumentary: No rashes Neuro: Normal speech, normal affect vitals reviewed Problem List: Acute alcoholic pancreatitis, necrotizing Alcohol withdrawal delirium, resolved Polysubstance abuse Alcohol Abuse Tobacco abuse Acute alcoholic pancreatitis, necrotizing Alcohol withdrawal delirium, resolved initial CT abdomen/pelvis ="1. Peripancreatic inflammatory changes, consistent with acute pancreatitis. No organized peripancreatic fluid collections. No evidence of pancreatic necrosis. 2. Mild diffuse fatty infiltration of the liver." Repeat CT (03/20): Acute pancreatitis is present in the region of the pancreatic tail. hypoenhancement measuring ~3cm is seen on today's study suggests necrot izing pancreatitis is present involving the tail. NPO with a few ice chips, IVF PICC ordered 03/22, to initiate TPN Pain medication as needed - dilaudid 2mg q3h - increased on 03/21 evening general surgery consulted (03/21)- Dr. Bell recommends transfer to tertiary care center for higher level of care due to morbidity/mortality associated with necrotizing pancreatitis accepted, pending bed - telemetry continue thiamine, folic acid Precedex dc'd 4 am 03/21, was on minimal dose on 03/20. started due to withdrawal symptoms/delirium withdrawal symptoms have improved some anxiety remains, but seems more due to pancreatitis continue librium has not required additional benzo PRN doses continue CIWA protocol started on rocephin & flagyl empirically ID consulted change abx to merrem 03/22 pt remains afebrile, lipase improving, leukocytosis improved Alcohol Abuse Tobacco abuse Polysubstance abuse He reports recreational use of methamphetamine and marijuana He reports smoking 0.5 pack/day for 15 years. Smoking and Substance abuse cessation advised on admission. Patient placed on Nicotine patch VTE: Lovenox Code: Full Dispo: transfer initiated to tertiary care center accepted; pending bed availability
[2023-03-23] MEDS: FOLIC ACID 1 MG in NA CHLORIDE 0.9% 50 ML IV SCH (08:23)
[2023-03-23] MEDS: NICOTINE 7 MG/PAT TD SCH (08:25)
[2023-03-23] MEDS: ENOXAPARIN 40 MG/0.4 ML SQ SCH (08:25)
[2023-03-23] MEDS: THIAMINE 200 MG/2 ML INJ IVP SCH (08:26)
[2023-03-23 14:17] VITALS: TEMP 97.7
[2023-03-23 16:33] VITALS: BP 127/87
[2023-03-23] MEDS ORDERED: AA 5%/D20W/ELECTROLYTES-TPN 2,000 ML IV SCH (17:00)
== END 2023-03-23 15:55 | disposition short-term general hospital (02) | DRG 439 ==
LOC: ER 03:47 → ERHOLD 07:55 → 2ND 09:42 → 3RD-ICU 14:00
PROVIDERS: ADMIT Internal Medicine; ATTEND Hospitalist
PROC: 02HV33Z Insertion of Infusion Device into Superior Vena Cava, Percutaneous Approach (ICD-10-PCS; principal; 2023-03-22)
PROC: 3E0436Z Introduction of Nutritional Substance into Central Vein, Percutaneous Approach (ICD-10-PCS; 2023-03-22)
PROC: 02H633Z Insertion of Infusion Device into Right Atrium, Percutaneous Approach (ICD-10-PCS; 2023-03-22)
DX: K85.21 Alcohol induced acute pancreatitis with uninfected necrosis (principal); E44.1 Mild protein-calorie malnutrition; F10.131 Alcohol abuse with withdrawal delirium; K70.0 Alcoholic fatty liver; D63.8 Anemia in other chronic diseases classified elsewhere; F15.10 Other stimulant abuse, uncomplicated; F12.10 Cannabis abuse, uncomplicated; F17.210 Nicotine dependence, cigarettes, uncomplicated; Z71.41 Alcohol abuse counseling and surveillance of alcoholic; Z68.22 Body mass index [BMI] 22.0-22.9, adult; Z71.51 Drug abuse counseling and surveillance of drug abuser; Z28.310 Unvaccinated for COVID-19; Y90.0 Blood alcohol level of less than 20 mg/100 ml
CPT/HCPCS: 36415; 36569; 70450; 71045; 71260; 74177; 80048; 80053; 80061; 80307; 81001; 82550; 83690; 83735; 84100; 85025; 85610; 86140; 96361; 96374; 96375; 99285; G0480; J0696; J1170; J1650; J2185; J2405; J2765; J3411; J3480; J7030; J7040; J7120; Q9967

== ENCOUNTER 2023-09-05 12:31 | Emergency (ER) | payer SELFPAY ==
--- OUTSIDE RECORDS SUMMARY | 2023-09-05 12:36 | XMS REPORT | Continuity of Care Document ---
:1975 Author Organization [facility] t Address [address] [facility] [address] [place] [address] Care Team Providers Name Role Phone PCP, PATIENT DOES NOT HAVE A Primary Care Physician Unavailandrea Jay MD, Isela Paz Attending Clinician [phone] Roger MOSQUEDA, Rona Attending Clinician Sebastian MOSQUEDA, Vinnie Attending Clinician Ericka Nugent MD Attending Clinician ERICKA NUGENT Attending Clinician Unavailable YI SANFORD Attending Clinician Unavailable Yi Sanford DO Attending Clinician Gini Ash NP Attending Clinician VINNIE REED Admitting Clinician Unavailable YI SANFORD Admitting Clinician Unavailable Problems Condition Condition Condition Status Onset Resolution Last Treating Co mments Source Name Details Category Date Date Treatment Clinician Date 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 Allergies, Adverse Reactions, Alerts Allergy Allergy Status Severity Reaction(s) Onset Inactive Treating Comm ents Source Name Type Date Date Clinician Lorazepandrea Propensi Active Other (See Out of [facility] to Comments) 03-23 [facility] adverse 00:00: experienc Medica l reaction 00 e Center s LORAZEPA Allergy Active High Other [facility] M 5 00:00: 00 NO KNOWN Allergy Active SLE ALLERGIE S NO KNOWN Drug Active Univers ALLERGIE Class [facility] [place] [facility] Social History Social Habit Start Date Stop Date Quantity Comments Source Exposure to Not sure University SARS-CoV-2 [place] [facility] (event) [facility] History of Cigarette [facility] tobacco use Medical Cent[facility] r History [facility] Transport Non-Med Medical Center History [facility] 2023-03-24 2023-03-[address] [facility] Transport Med 00:00:00 00:00:[address] [facility] 2023-03-24 2023-03-[address] [facility] Housing Unable to 00:00:00 00:00:00 Medical Center Pay History [facility] 2023-03-24 2023-03-[address] [facility] Housing Places 00:00:00 00:00:00 Medical Ce nter Lived History [facility] 2023-03-24 2023-03-[address] [facility] Housing Homeless 00:00:00 00:00:00 Medical Center Last Year Tobacco use and 2023-03-23 2023-03-23 Smokeless [address] [facility] exposure 00:00:00 00:00:00 non-user Medical Center Alcohol intake 2023-03-23 2023-03-23 [facility]00:00 of alcohol [facility] (finding) Sex Assigned At [birth year] [facility] [address] Kellee kes 00:00:00 00:00:00 [facility] Smoking Status Start Date Stop Date Source Smokes tobacco daily 2023-03-23 00:00:00 [facility] Medications Ordered Filled Start Stop Current Ordering Indication Dosage Frequency Signature Comments Components Source Medication Medication Date Date Medication? Clinician (SIG) Name Name nicotine 2022- No 1{patch QD Place [address] (NICODERM 518 0617 } patch onto Cesar es CQ) 21 00:00: 23:59 the skin Medica l mg/24 hr 00 :00 in the Center patch morning for 30 days. nicotine 2022- No 1{patch QD Place [address] (NICODERM 18 -17 } patch onto Cesar es CQ) 21 00:00: 23:59 the skin Medica l mg/24 hr 00 :00 in the Center patch morning for 30 days. polyethylen 2022-0 2022- No 17g QD Take [address] [facility] glycol -18 -01 by mouth [facility] (GLYCOLAX) 00:00: 23:59 in the Medi elif 17 gram 00 :00 morning Center packet for 14 days. polyethylen 2022-0 2022- No 17g QD Take [address] [facility] glycol -18 -01 by mouth [facility] (GLYCOLAX) 00:00: 23:59 in the Medi elif 17 gram 00 :00 morning Center packet for 14 days. famotidine 2022-2022- No 20mg Q.5D Take [address] (PEPCID) 20 5-17 07-16 tablet (20 [facility] MG tablet 00:00: 23:59 mg total) Me dical 00 :00 by mouth Center in the morning and 1 tablet (20 mg total) before bedtime. Do all this for 60 days. famotidine 2022-2022- No 20mg Q.5D Take [address] (PEPCID) 20 5-17 07-16 tablet (20 L ukes MG tablet 00:00: 23:59 mg total) Me dical 00 :00 by mouth Center in the morning and 1 tablet (20 mg total) before bedtime. Do all this for 60 days. ALPRAZolam 2022-2022- No .25mg Take [address] (XANAX) 5-17 -06 tablet [facility] 0.25 MG 00:00: 23:59 (0.25 mg Medic al tablet 00 :00 total) by Center mouth every night as needed for Sleep for up to 20 days. Max Daily Amount: 0.25 mg ALPRAZolam 2022-0 2022- No .25mg Take [address] (XANAX) 5-17 06-06 tablet [facility] 0.25 MG 00:00: 23:59 (0.25 mg Medic al tablet 00 :00 total) by Center mouth every night as needed for Sleep for up to 20 days. Max Daily Amount: 0.25 mg gabapentin 2022-2022- No 300mg Q.[id number] Take [address] (NEURONTIN) 5- [id number] capsule [facility] 300 MG 00:00: 23:59 3D (300 mg Medical capsule 00 :00 total) by Center mouth in the morning and 1 capsule (300 mg total) at noon and 1 capsule (300 mg total) in the evening. Do all this for 10 days. HYDROcodone 2022-2022- No 1{tbl} Take [address] -acetaminop 504-08 tablet by Kellee bundy (NORCO 00:00: 23:59 mouth Medic al 7.5-325) 00 :00 every 8 Center 7.5-325 mg (eight) per tablet hours as needed for Pain for up to 10 days. Max Daily Amount: 3 tablets gabapentin 2022-2022- No 300mg Q.[id number] Take [address] (NEURONTIN) 5-29 03- [id number] capsule [facility] 300 MG 00:00: 23:59 3D (300 mg Medical capsule 00 :00 total) by Center mouth in the morning and 1 capsule (300 mg total) at noon and 1 capsule (300 mg total) in the evening. Do all this for 10 days. HYDROcodone 2022-2022- No 1{tbl} Take [address] -acetaminop 03-29 tablet by Kellee bundy (NORCO 00:00: 23:59 mouth Medic al 7.5-325) 00 :00 every 8 Center 7.5-325 mg (eight) per tablet hours as needed for Pain for up to 10 days. Max Daily Amount: 3 tablets methocarbam 2022-0 2022- No 500mg Q.25D Take [address] oL 5-17 -22 tablet [facility] (ROBAXIN) 00:00: 23:59 (500 mg Medi elif 500 MG 00 :00 total) by Center tablet mouth in the morning and 1 tablet (500 mg total) at noon and 1 tablet (500 mg total) in the evening and 1 tablet (500 mg total) before bedtime. Do all this for 5 days. methocarbam 2022-0 2022- No 500mg Q.25D Take [address] oL 5-17 05-22 tablet [facility] (ROBAXIN) 00:00: 23:59 (500 mg Medi elif 500 MG 00 :00 total) by Center tablet mouth in the morning and 1 tablet (500 mg total) at noon and 1 tablet (500 mg total) in the evening and 1 tablet (500 mg total) before bedtime. Do all this for 5 days. morpHINE 2021- No 4mg 4 mg, Slow [...] Branch 01/08/22 at 1130, FERNANDEZ naproxen Yes [id number] 500mg Take 1 U nivers 500 mg 01-08 tablet by ity of tablet 00:00: mouth 2 00 (two) Medical times Branch daily with meals. gabapentin 2021-2021- No [id number] 100mg Take 1 Univers 100 mg 01-08 03-29 capsule by ity of capsule 00:00: 04:59 mouth 3 [place] 00 :00 (three) Medical times Branch daily for 30 days. dicyclomine Yes [id number] 20mg Take 1 Univers 20 mg 4-19 tablet by ity of tablet 00:00: mouth 4 00 (four) Medical times Branch daily as needed for Abdominal pain. proMETHazin Yes [id number] 25mg Take 1 Univers e 25 mg 4-19 tablet by ity of tablet 00:00: mouth [place] 00 every 6 Medical (six) Branch hours as needed for Nausea and Vomiting (N/V). ketorolac Yes [id number] 10mg Take 1 Univers 10 mg 3-14 [id number] tablet by ity of tablet 00:00: mouth [place] 00 every 8 Medical (eight) Branch hours as needed for Pain (scale 4-6). traMADOL 50 Yes [id number] 50mg Take 1 Univers mg tablet 3-14 [id number] tablet by ity of 00:00: mouth [place] 00 every 8 Medical (eight) Branch hours as needed for Pain (scale 4-6). ketorolac Yes [id number] 10mg Take 1 Univers 10 mg 3-14 [id number] tablet by ity of tablet 00:00: mouth [place] 00 every 8 Medical (eight) Branch hours as needed for Pain (scale 4-6). Vital Signs Vital Name Observation Time Observation Value Comments Source WEIGHT 2023-03-29 69.673 kg 06:14:00 WEIGHT 2023-03-28 65.137 kg 06:00:00 WEIGHT 2023-03-27 66.225 kg 03:20:00 WEIGHT 2023-03-26 67.132 kg 05:03:00 WEIGHT 2023-03-25 68.448 kg 06:00:00 HEIGHT 2023-03-23 172.7 cm 19:30:00 WEIGHT 2023-03-23 70.308 kg 19:30:00 HEIGHT 2023-03-23 172.7 cm 17:38:00 WEIGHT 2023-03-29 69.673 kg 06:14:00 WEIGHT 2023-03-28 65.137 kg 06:00:00 WEIGHT 2023-03-27 66.225 kg 03:20:00 WEIGHT 2023-03-26 67.132 kg 05:03:00 WEIGHT 2023-03-25 68.448 kg 06:00:00 HEIGHT 2023-03-23 172.7 cm 19:30:00 WEIGHT 2023-03-23 70.308 kg 19:30:00 HEIGHT 2023-03-23 172.7 cm 17:38:00 WEIGHT 2023-03-29 69.673 kg 06:14:00 WEIGHT 2023-03-28 65.137 kg 06:00:00 WEIGHT 2023-03-27 66.225 kg 03:20:00 WEIGHT 2023-03-26 67.132 kg 05:03:00 WEIGHT 2023-03-25 68.448 kg 06:00:00 HEIGHT 2023-03-23 172.7 cm 19:30:00 WEIGHT 2023-03-23 70.308 kg 19:30:00 HEIGHT 2023-03-23 172.7 cm 17:38:00 Diastolic blood 2022-01-08 100 mm[Hg] [facility] pressure 15:41:00 [facility] Heart rate 2022-01-08 97 /min [facility] 15:41:00 [facility] Body temperature 2022-01-08 36.89 Clarice [facility] 15:41:00 [facility] Respiratory rate 2022-01-08 16 /min [facility] 15:41:00 [facility] Body height 2022-01-08 175.3 cm [facility] 15:41:00 [facility] Body weight 2022-01-08 65.772 kg University 15:41:00 [facility] BMI 2022-01-08 21.41 kg/m2 [facility] 15:41:00 [facility] Oxygen saturation 2022-01-08 95 /min [facility] in Arterial blood 15:41:00 [facility] by Pulse oximetry [place] Systolic blood 2022-01-08 139 mm[Hg] [facility] 15:41:00 [facility] Systolic blood 2023-03-29 155 mm[Hg] notified rn [facility] pressure 08:00:00 [facility] Diastolic blood 2023-03-29 98 mm[Hg] notified rn [facility] pressure 08:00:00 [facility] Heart rate 2023-03-29 84 /min [facility] 08:00:00 [facility] Body temperature 2023-03-[address] 08:00:00 [facility] Respiratory rate 2023-03-29 18 /min [facility] 08:00:00 [facility] Oxygen saturation 2023-03-29 97 /min [facility] in Arterial blood 08:00:00 [facility] nter by Pulse oximetry Body weight 2023-03-29 69.673 kg [facility] 06:14:00 [facility] BMI 2023-03-29 23.35 kg/m2 [facility] 06:14:00 [facility] Body height 2023-03-24 172.7 cm [facility] 19:08:00 [facility] Procedures Procedure Date / Time Performing Clinician Source Performed COMPREHENSIVE METABOLIC 2023-03-29 07:19:00 Aakash Reed [facility] POCT-GLUCOSE METER 2023-03-29 06:00:00 Vinnie Reed [facility] CBC W/PLT COUNT & AUTO 2023-03-29 05:16:00 [facility] W[facility] & AUTO 2023-03-29 05:16:00 [facility]SE [facility] 2023-03-29 00:22[facility] 2023-03-28 18:44:00 [facility]SE [facility] 2023-03-28 13:12:00 Vinnie Reed [facility] POCT-GLUCOSE METER 2023-03-28 05:51:00 [facility] W/PLT COUNT & AUTO 2023-03-28 05:39:00 Vinnie Reed [facility] PHOSPHORUS 2023-03-28 05:39:00 Vinnie Reed [facility] MAGNESIUM 2023-03-28 05:39:00 Sebastian [facility] CBC W/PLT COUNT & AUTO 2023-03-28 05:39:00 Vinnie Reed [facility] COMPREHENSIVE METABOLIC 2023-03-28 05:39:00 Aakash Reed [facility] POCT-GLUCOSE METER 2023-03-27 23:55:00 [place] POCT-[facility]UCOSE METER 2023-03-27 17:59:00 Sebastian [facility] POCT-GLUCOSE METER 2023-03-27 08:29:00 Sebastian [facility] CBC W/PLT COUNT & AUTO 2023-03-27 06:38:00 Sebastian [facility] CBC W/PLT COUNT & AUTO 2023-03-27 06:38:00 [facility] COMPREHENSIVE METABOLIC 2023-03-27 06:38:00 Aakash Reed [facility] PHOSPHORUS 2023-03-27 06:38:00 Sebastian [facility] MAGNESIUM 2023-03-27 06:38:00 Sebastian [facility] POCT-GLUCOSE METER 2023-03-26 21:12:00 Sebastian [facility] POCT-GLUCOSE METER 2023-03-26 18:05:00 Sebastian [facility] POCT-GLUCOSE METER 2023-03-26 12:50:00 Sebastian [facility] POCT-GLUCOSE METER 2023-03-26 09:02:00 Sebastian [facility] CBC W/PLT COUNT & AUTO 2023-03-26 04:53:00 [facility] W/[facility]T [facility] & AUTO 2023-03-26 04:53:00 Sebastian [facility] COMPREHENSIVE METABOLIC 2023-03-26 04:53:00 Aakash Reed [facility] PHOSPHORUS 2023-03-26 04:53:00 [facility]UM 2023-03-26 04:53:00 Sebastian [facility] MR ABDOMEN WITH & 2023-03-25 16:42:00 [facility] WITHOUT IV CONTRAST Center CBC W/PLT COUNT & AUTO 2023-03-25 03:29:00 [facility] CBC W/PLT COUNT & AUTO 2023-03-25 03:29:00 [facility] COMPREHENSIVE METABOLIC 2023-03-25 03:29:00 Sebastian Daysiarcenio andrea [facility] POCT-GLUCOSE METER 2023-03-24 21:04:00 [facility] POCT-GLUCOSE METER 2023-03-24 16:57:00 [facility] POCT-GLUCOSE METER 2023-03-24 12:25:00 [facility] POCT-GLUCOSE METER 2023-03-24 08:09:00 Sebastian [facility] CBC W/PLT COUNT & AUTO 2023-03-23 18:24:00 [facility] CBC W/PLT COUNT & AUTO 2023-03-23 18:24:00 [facility]OLIC 2023-03-23 18:24:00 [facility] 2023-03-23 18:24[facility]00 [facility]SE [facility] 2023-03-23 18:16[facility] [facility]OMEN PELVIS WO 2022-01-08 16:59:02 Yi Sanford [facility] CONTRAST Medical Branch LIPASE 2022-01-08 16:26:00 Yi [facility] COMP. METABOLIC PANEL 2022-01-08 16:26:00 Yi Sanford [facility] ([id number]) Medical Branch CBC WITH DIFF 2022-01-08 16:26:00 Yi [facility] URINALYSIS 2022-01-08 16:26:00 Yi [facility]ford [facility] ASSIGNMENT OF BENEFITS 2022-01-08 16:13:19 Doctor Unassigned, No [facility] Name [facility] CONSENT/REFUSAL FOR 2022-01-08 15:33:44 Doctor Unassigned, No [facility] DIAGNOSIS AND TREATMENT Name Medical [place] Plan of Care Planned Activity Planned Date Details Comments Source Future Scheduled 2026-03-23 Lipid panel (procedure) [facility] Test 00:00:00 [code = 40190338] Medical Ce nter Future Scheduled 2026-03-23 Lipid panel (procedure) [facility] Test 00:00:00 [code = 68979815] Medical Ce nter Future Scheduled 2024-03-[address] [facility] Test 00:00:00 Counseling and Screening Med ical Center (12+) [code = Tobacco Cessation Counseling and Screening (12+)] Future Scheduled 2024-03-[address] [facility] Test 00:00:00 Counseling and Screening Med ical Center (12+) [code = Tobacco Cessation Counseling and Screening (12+)] Future Scheduled 2023-07-14 Influenza Vaccine (#1) [facility] 00:00:00 [code = Influenza Vaccine Me dical Center (#1)] Future Scheduled 2023-07-14 Influenza Vaccine (#1) [facility] 00:00:00 [code = Influenza Vaccine Me dical Center (#1)] Future Scheduled 1996 DTAP/TDAP/TD VACCINES ([address] [facility] Test 00:00:00 - Tdap) [code = Medical Cent er DTAP/TDAP/TD VACCINES (1 - Tdap)] Future Scheduled 1996 DTAP/TDAP/TD VACCINES ([address] [facility] Test 00:00:00 - Tdap) [code = Medical Cent er DTAP/TDAP/TD VACCINES (1 - Tdap)] Future Scheduled 1995 HEPATITIS C SCREENING [facility] 00:00:00 [code = HEPATITIS C Medical Center SCREENING] Future Scheduled 1995 HEPATITIS C [facility]CRE[facility]ING [facility] 00:00:00 [code = HEPATITIS C Medical Center SCREENING] Future Scheduled [address] [facility] Test 00:00:00 virus screening Medical Cent er (procedure) [code = 285264922] Future Scheduled [address] [facility] 00:00:00 virus screening Medical Cent er (procedure) [code = 708411285] Future Scheduled 1983 Pneumococcal Vaccine: [facility] Test 00:00:00 0-64 Years (1 - PCV) Medical Center [code = Pneumococcal Vaccine: 0-64 Years (1 - PCV)] Future Scheduled 1983 Pneumococcal Vaccine: [facility] Test 00:00:00 0-64 Years (1 - PCV) Medical Center [code = Pneumococcal Vaccine: 0-64 Years (1 - PCV)] Future Scheduled 1977 COVID-19 VACCINE (#1) [facility] 00:00:00 [code = COVID-19 VACCINE Med ica Center (#1)] Future Scheduled 1977 COVID-19 VACCINE (#1) [facility] 00:00:00 [code = COVID-19 VACCINE Med ical Center (#1)] Future Scheduled 1977 CT Colonography (combo) [facility] Test 00:00:00 [code = CT Colonography [facility] (combo)] Future Scheduled 1977 Screening for malignant [facility] Test 00:00:00 neoplasm of colon Medical Ce nter (procedure) [code = 990160717] Future Scheduled 1977 Screening for malignant [facility] Test 00:00:00 neoplasm of colon Medical Ce nter (procedure) [code = 836673119] Future Scheduled 1977 Screening for malignant [facility] Test 00:00:00 neoplasm of colon Medical Ce nter (procedure) [code = 702358624] Future Scheduled 1977 Screening for malignant [facility] Test 00:00:00 neoplasm of colon Medical Ce nter (procedure) [code = 088580972] Future Scheduled 1975 Sigmoidoscopy [code = [facility] 00:00:00 Sigmoidoscopy] Medical Cente r Future Scheduled 1977 CT Colonography (combo) [facility] Test 00:00:00 [code = CT Colonography [facility] (combo)] Future Scheduled 1977 Screening for malignant [facility] Test 00:00:00 neoplasm of colon Medical Ce nter (procedure) [code = 182782762] Future Scheduled 1977 Screening for malignant [facility] Test 00:00:00 neoplasm of colon Medical Ce nter (procedure) [code = 929133286] Future Scheduled 1977 Screening for malignant [facility] Test 00:00:00 neoplasm of colon Medical Ce nter (procedure) [code = 629315838] Future Scheduled 1977 Screening for malignant [facility] Test 00:00:00 neoplasm of colon Medical Ce nter (procedure) [code = 416678647] Future Scheduled 1975 Sigmoidoscopy [code = [facility] 00:[facility]00 [facility] End Encounter Admission Attending Care Care Encounter Source Date/Time Date/Time Type Type Clinicians Facility Department ID 2023-08-30 2023-08-30 Outpatient SFA SFA Jerardo 15:52:41 15:52:41 [id number] [place] 2023-08-23 2023-08-23 Outpatient SFA SFA Jerardo 15:47:16 15:47:16 [id number] [place] 2023-08-09 2023-08-09 Outpatient SFA SFA Jerardo 15:05:24 15:05:24 [id number] [place] 2023-07-07 2023-07-07 Outpatient SFA SFA Jerardo 15:15:07 15:15:07 [id number] [place] 2023-05-29 2023-05-29 Outpatient SFA SFA Jerardo 16:27:21 16:27:21 [id number] [place] 2023-05-15 2023-05-15 Outpatient SFA SFA Jerardo 17:03:15 17:03:15 [id number] [place] 2023-03-23 2023-03-29 [facility] Isela Jay [facility] [id number] [facility] 17:07:00 11:15:00 Encounter Rona Duran [facility], [facility] 2023-03-23 2023-03-[address] [facility] [id number] [facility] 17:07:00 11:15:00 [facility] 2023-03-23 2023-03-29 [facility] Isela Jay [facility] [id number] [facility] 17:07:00 11:15:00 Encounter Rona Duran [facility] 2023-03-23 2023-03-23 Travel [facility] [id number] [facility] 00:00:00 [facility] 2023-03-23 2023-03-23 Travel [facility] [id number] [facility] 00:00:00 [facility] 2022-01-08 2022-01-08 Emergency [facility] E[facility] [id number] Univers 09:44:00 12:11:00 YI [facility] 2022-01-08 2022-01-08 Emergency [facility] [id number] [facility] 09:44:00 12:11:00 Yi FAY [id number] [facility] [id number] [facility] [id number] [address] 2021-03-01 2021-03-01 Emergency [facility] [id number] 14:29:00 19:20:00 Gini Fay [id number] [place] [id number] [place] [address] [id number] [facility] 2021-03-01 2021-03-01 Emergency X [facility] ERT [id number] Univers 13:36:00 13:36:00 [facility] Results Test Description Test Time Test Comments Results Result Comments Source COMPREHENSIVE METABOLIC PANEL 2023-03-29 07:56:10 Test Item Value Reference Range Interpretation Comme nts TOTAL PROTEIN (BEAKER) 7.7 gm/dL 6.0-8.3 (test code = 770) ALBUMIN (BEAKER) (test 3.7 g/dL 3.5-5.0 code = 1145) ALKALINE PHOSPHATASE 63 U/L 40-150 (BEAKER) (test code = 346) BILIRUBIN TOTAL (BEAKER) 0.2 mg/dL 0.2-1.2 (test code = 377) SODIUM (BEAKER) (test 137 meq/L 136-145 code = 381) POTASSIUM (BEAKER) (test 4.3 meq/L 3.5-5.1 code = 379) CHLORIDE (BEAKER) (test 103 meq/L 98-107 code = 382) CO2 (BEAKER) (test code 24 meq/L 22-29 = 355) BLOOD UREA NITROGEN 13 mg/dL 7-21 (BEAKER) (test code = 354) CREATININE (BEAKER) 0.71 mg/dL 0.57-1.25 (test code = 358) GLUCOSE RANDOM (BEAKER) 145 mg/dL 70-105 H (test code = 652) CALCIUM (BEAKER) (test 9.7 mg/dL 8.4-10.2 code = 697) AST (SGOT) (BEAKER) 17 U/L 5-34 (test code = 353) ALT (SGPT) (BEAKER) 14 U/L 6-55 (test code = 347) EGFR (BEAKER) (test code 115 mL/min/1.73 Interpretation of eGFR values = 1092) sq m Stage Descripti on Result G1 Normal or high >=90 G2 Mildly decreased 60-89 G3a Mildly to moderately 45-5 9 G3b Moderately to severely 30- 44 G4 Severly decreased 15-29 G5 Kidney failure <15Repo rted eGFR is based on the CK D-EPI 2020 equation that d oes not use a race coefficien tEstimated GFR is not as accurate as Creatinine Clearance in pr edicting glomerular filt ration rate. Estimated GFR i s not applicable for dialysis suhail barnes POC-Glucose [id number] 06:11:57 Test Item Value Reference Range Interpretation Comments POC-Glucose Meter (test 161 mg/dL 70-110 H : TE STED AT [facility] code = 1538) [address] [place], [address] 30: Sample Maker Hand/Techni kenny ID = [id number] for PrakashbrigidoOlivier ozuna el Lab Interpretation (test Abnormal code = 45120-4) [facility]-Glucose [id number] 06:11:57 Test Item Value Reference Range Interpretation Comments POC-Glucose Meter (test 161 mg/dL 70-110 H : TE STED AT [facility] code = 1538) [address] [facility] [place], [address] 30: Sample Maker Hand/Techni kenny ID = [id number] for Olivier Johnson Lab Interpretation (test Abnormal code = 24953-3) [facility] [id number] 06:11:57 Test Item Value Reference Range Interpretation Comments POC-GLUCOSE METER 161 mg/dL 70-110 H : TESTED A T [facility] 6720 (BEAKER) (test code = [facility] Mc[facility], 1538) [address]: Sample Maker Hand/Techni kenny ID = [id number] for [place] CBC W/PLT COUNT & AUTO [id number] 05:49:26 Test Item Value Reference Range Interpretation Comments WHITE BLOOD CELL COUNT (BEAKER) 11.3 K/ L 3.5-10.5 H (test code = 775) RED BLOOD CELL COUNT (BEAKER) 3.59 M/ L 4.63-6.08 L (test code = 761) HEMOGLOBIN (BEAKER) (test code = 11.8 GM/DL 13.7-17.5 L 410) HEMATOCRIT (BEAKER) (test code = 34.8 % 40.1-51.0 L 411) MEAN CORPUSCULAR VOLUME (BEAKER) 97 fL 79-92 H (test code = 753) MEAN CORPUSCULAR HEMOGLOBIN 32.9 pg 25.7-32.2 H (BEAKER) (test code = 751) MEAN CORPUSCULAR HEMOGLOBIN CONC 33.9 GM/DL 32.3-36.5 (BEAKER) (test code = 752) RED CELL DISTRIBUTION WIDTH 12.2 % 11.6-14.4 (BEAKER) (test code = 412) PLATELET COUNT (BEAKER) (test 421 K/CU MM 150-450 code = 756) MEAN PLATELET VOLUME (BEAKER) 8.7 fL 9.4-12.4 L (test code = 754) NUCLEATED RED BLOOD CELLS 0 /100 WBC 0-0 (BEAKER) (test code = 413) NEUTROPHILS RELATIVE PERCENT 68 % (BEAKER) (test code = 429) LYMPHOCYTES RELATIVE PERCENT 17 % (BEAKER) (test code = 430) MONOCYTES RELATIVE PERCENT 11 % (BEAKER) (test code = 431) EOSINOPHILS RELATIVE PERCENT 1 % (BEAKER) (test code = 432) BASOPHILS RELATIVE PERCENT 1 % (BEAKER) (test code = 437) NEUTROPHILS ABSOLUTE COUNT 7.68 K/ L 1.78-5.38 H (BEAKER) (test code = 670) LYMPHOCYTES ABSOLUTE COUNT 1.95 K/ L 1.32-3.57 (BEAKER) (test code = 414) MONOCYTES ABSOLUTE COUNT (BEAKER) 1.21 K/ L 0.30-0.82 H (test code = 415) EOSINOPHILS ABSOLUTE COUNT 0.13 K/ L 0.04-0.54 (BEAKER) (test code = 416) BASOPHILS ABSOLUTE COUNT (BEAKER) 0.08 K/ L 0.01-0.08 (test code = 417) IMMATURE GRANULOCYTES-RELATIVE 1.80 % 0.00-1.00 H PERCENT (BEAKER) (test code = 2801) POCT-GLUCOSE [id number] 00:34:42 Test Item Value Reference Range Interpretation Comments POC-GLUCOSE METER 187 mg/dL 70-110 H : TESTED A T [facility] 6720 (BEAKER) (test code = [facility], 153) [address]2542: Sample Maker Hand/Techni kenny ID = [id number] for Spencer Downs POCT-GLUCOSE [id number] 18:55:57 Test Item Value Reference Range Interpretation Comments POC-GLUCOSE METER 233 mg/dL 70-110 H : TESTED A T [facility] 6720 (BEAKER) (test code = [facility], 153) 84812: Sample Maker Hand/Techni kenny ID = [id number] for REX ARIAS POCT-GLUCOSE [id number] 13:23:27 Test Item Value Reference Range Interpretation Comments POC-GLUCOSE METER 195 mg/dL 70-110 H : TESTED A T [facility] 6720 (BEAKER) (test code = [facility], 153) 03431: Sample Maker Hand/Techni kenny ID = [id number] for REX ARIAS COMPREHENSIVE METABOLIC [id number] 06:46:12 Test Item Value Reference Range Interpretation Comments TOTAL PROTEIN 6.9 gm/dL 6.0-8.3 (BEAKER) (test code = 770) ALBUMIN (BEAKER) 3.3 g/dL 3.5-5.0 L (test code = 1145) ALKALINE 54 U/L 40-150 PHOSPHATASE (BEAKER) (test code = 346) BILIRUBIN TOTAL 0.2 mg/dL 0.2-1.2 (BEAKER) (test code = 377) SODIUM (BEAKER) 136 meq/L 136-145 (test code = 381) POTASSIUM (BEAKER) 4.4 meq/L 3.5-5.1 (test code = 379) CHLORIDE (BEAKER) 102 meq/L 98-107 (test code = 382) CO2 (BEAKER) (test 27 meq/L 22-29 code = 355) BLOOD UREA 12 mg/dL 7-21 NITROGEN (BEAKER) (test code = 354) CREATININE 0.71 mg/dL 0.57-1.25 (BEAKER) (test code = 358) GLUCOSE RANDOM 126 mg/dL 70-105 H (BEAKER) (test code = 652) CALCIUM (BEAKER) 9.3 mg/dL 8.4-10.2 (test code = 697) AST (SGOT) 16 U/L 5-34 (BEAKER) (test code = 353) ALT (SGPT) 14 U/L 6-55 (BEAKER) (test code = 347) EGFR (BEAKER) 115 Interpretatio n of eGFR (test code = 1092) mL/min/1.[address] age Description sq m Result G1 Concepcion l or high >=90 G2 Mildly decreased 60-89 G3a Mildl y to moderately 45- 59 G3b Moderately to s everely 30-44 G4 Severl y decreased 15-29 G5 Kidney failure <15Reported eGF R is based on the CKD-EPI 2021 equation that d oes not use a race coefficientEsti mated GFR is not as accur ate as Creatinine Shellie weiss in predicting glom erular filtration rate . Estimated GFR is not appl icable for dialysis patien ts Sample Maker Hand ID - DEEPIKA [id number] 06:46:12 Test Item Value Reference Range Interpretation Comments MAGNESIUM (BEAKER) (test code = 2.1 mg/dL 1.6-2.6 627) Sample Maker Hand ID Ann POE [id number] 06:46:12 Test Item Value Reference Range Interpretation Comments PHOSPHORUS (BEAKER) (test code = 3.7 mg/dL 2.3-4.7 604) Sample Maker Hand ALLYSON POE WCBC W/PLT COUNT & AUTO [id number] 06:17:03 Test Item Value Reference Range Interpretation Comments WHITE BLOOD CELL COUNT (BEAKER) 12.3 K/ L 3.5-10.5 H (test code = 775) RED BLOOD CELL COUNT (BEAKER) 3.58 M/ L 4.63-6.08 L (test code = 761) HEMOGLOBIN (BEAKER) (test code = 11.9 GM/DL 13.7-17.5 L 410) HEMATOCRIT (BEAKER) (test code = 35.4 % 40.1-51.0 L 411) MEAN CORPUSCULAR VOLUME (BEAKER) 99 fL 79-92 H (test code = 753) MEAN CORPUSCULAR HEMOGLOBIN 33.2 pg 25.7-32.2 H (BEAKER) (test code = 751) MEAN CORPUSCULAR HEMOGLOBIN CONC 33.6 GM/DL 32.3-36.5 (BEAKER) (test code = 752) RED CELL DISTRIBUTION WIDTH 12.1 % 11.6-14.4 (BEAKER) (test code = 412) PLATELET COUNT (BEAKER) (test 381 K/CU MM 150-450 code = 756) MEAN PLATELET VOLUME (BEAKER) 8.7 fL 9.4-12.4 L (test code = 754) NUCLEATED RED BLOOD CELLS 0 /100 WBC 0-0 (BEAKER) (test code = 413) NEUTROPHILS RELATIVE PERCENT 72 % (BEAKER) (test code = 429) LYMPHOCYTES RELATIVE PERCENT 12 % (BEAKER) (test code = 430) MONOCYTES RELATIVE PERCENT 11 % (BEAKER) (test code = 431) EOSINOPHILS RELATIVE PERCENT 3 % (BEAKER) (test code = 432) BASOPHILS RELATIVE PERCENT 1 % (BEAKER) (test code = 437) NEUTROPHILS ABSOLUTE COUNT 8.89 K/ L 1.78-5.38 H (BEAKER) (test code = 670) LYMPHOCYTES ABSOLUTE COUNT 1.48 K/ L 1.32-3.57 (BEAKER) (test code = 414) MONOCYTES ABSOLUTE COUNT (BEAKER) 1.33 K/ L 0.30-0.82 H (test code = 415) EOSINOPHILS ABSOLUTE COUNT 0.31 K/ L 0.04-0.54 (BEAKER) (test code = 416) BASOPHILS ABSOLUTE COUNT (BEAKER) 0.08 K/ L 0.01-0.08 (test code = 417) IMMATURE GRANULOCYTES-RELATIVE 1.50 % 0.00-1.00 H PERCENT (BEAKER) (test code = 2801) POCT-GLUCOSE [id number] 06:02:48 Test Item Value Reference Range Interpretation Comments POC-GLUCOSE METER 137 mg/dL 70-110 H : TESTED A T [facility] 6720 (BEAKER) (test code = [facility], 1538) 30189: Sample Maker Hand/Techni kenny ID = [id number] for Victorian-TERRY, WILLI POCT-GLUCOSE [id number] 00:07:07 Test Item Value Reference Range Interpretation Comments POC-GLUCOSE METER 162 mg/dL 70-110 H : TESTED A T [facility] 6720 (BEAKER) (test code = [facility], [facility]8) 34990: Sample Maker Hand/Techni kenny ID = [id number] for Victorian-TERRY, WILLI POCT-GLUCOSE [id number] 18:11:06 Test Item Value Reference Range Interpretation Comments POC-GLUCOSE METER 146 mg/dL 70-110 H : TESTED A T [facility] 6720 (BEAKER) (test code = [facility], 1538) 69459: Sample Maker Hand/Techni kenny ID = [id number] for Di akite, Sockona POCT-GLUCOSE [id number] 08:40:14 Test Item Value Reference Range Interpretation Comments POC-GLUCOSE METER 139 mg/dL 70-110 H : TESTED A T [facility] 6720 (BEAKER) (test code = [facility], 1538) 55523: Sample Maker Hand/Techni kenny ID = [id number] for Ag uilar, Gilmer [id number] 07:11:44 Test Item Value Reference Range Interpretation Comments MAGNESIUM (BEAKER) (test code = 2.1 mg/dL 1.6-2.6 627) Sample Maker Hand ID - DEEPIKA [id number] 07:11:44 Test Item Value Reference Range Interpretation Comments PHOSPHORUS (BEAKER) (test code = 3.0 mg/dL 2.3-4.7 604) Sample Maker Hand ALLYSON POE WCOMPREHENSIVE METABOLIC [id number] 07:11:43 Test Item Value Reference Range Interpretation Comments TOTAL PROTEIN 6.3 gm/dL 6.0-8.3 (BEAKER) (test code = 770) ALBUMIN (BEAKER) 3.1 g/dL 3.5-5.0 L (test code = 1145) ALKALINE 50 U/L 40-150 PHOSPHATASE (BEAKER) (test code = 346) BILIRUBIN TOTAL 0.2 mg/dL 0.2-1.2 (BEAKER) (test code = 377) SODIUM (BEAKER) 138 meq/L 136-145 (test code = 381) POTASSIUM (BEAKER) 4.3 meq/L 3.5-5.1 (test code = 379) CHLORIDE (BEAKER) 105 meq/L 98-107 (test code = 382) CO2 (BEAKER) (test 29 meq/L 22-29 code = 355) BLOOD UREA 9 mg/dL 7-21 NITROGEN (BEAKER) (test code = 354) CREATININE 0.71 mg/dL 0.57-1.25 (BEAKER) (test code = 358) GLUCOSE RANDOM 157 mg/dL 70-105 H (BEAKER) (test code = 652) CALCIUM (BEAKER) 8.7 mg/dL 8.4-10.2 (test code = 697) AST (SGOT) 14 U/L 5-34 (BEAKER) (test code = 353) ALT (SGPT) 13 U/L 6-55 (BEAKER) (test code = 347) EGFR (BEAKER) 115 Interpretatio n of eGFR (test code = 1092) mL/min/1.[address] age Description sq m Result G1 Norm al or high >=90 G2 Mildly decreased 60-89 G3a Mildl y to moderately 45-5 9 G3b Moderately to s everely 30-44 G4 Severl y decreased 15-29 G5 Kidne y failure <15Reported eGF R is based on the CKD-EPI 2020 equation that d oes not use a race coefficientEsti mated GFR is not as accur ate as Creatinine Shellie abhishek in predicting glom erular filtration rate . Estimated GFR is not appl icable for dialysis patien ts Sample Maker Hand ALLYSON POE WCBC W/PLT COUNT & AUTO [id number] 06:50:47 Test Item Value Reference Range Interpretation Comments WHITE BLOOD CELL COUNT 11.2 K/ L 3.5-10.5 H (BEAKER) (test code = 775) RED BLOOD CELL COUNT 3.29 M/ L 4.63-6.08 L (BEAKER) (test code = 761) HEMOGLOBIN (BEAKER) 11.0 GM/DL 13.7-17.5 L (test code = 410) HEMATOCRIT (BEAKER) 32.5 % 40.1-51.0 L (test code = 411) MEAN CORPUSCULAR 99 fL 79-92 H Discordant results VOLUME (BEAKER) (test compar ed to previous code = 753) results; clinic al correlation req uired MEAN CORPUSCULAR 33.4 pg 25.7-32.2 H HEMOGLOBIN (BEAKER) (test code = 751) MEAN CORPUSCULAR 33.8 GM/DL 32.3-36.5 HEMOGLOBIN CONC (BEAKER) (test code = 752) RED CELL DISTRIBUTION 12.0 % 11.6-14.4 WIDTH (BEAKER) (test code = 412) PLATELET COUNT 324 K/CU MM 150-450 (BEAKER) (test code = 756) MEAN PLATELET VOLUME 8.5 fL 9.4-12.4 L (BEAKER) (test code = 754) NUCLEATED RED BLOOD 0 /100 WBC 0-0 CELLS (BEAKER) (test code = 413) NEUTROPHILS RELATIVE 71 % PERCENT (BEAKER) (test code = 429) LYMPHOCYTES RELATIVE 14 % PERCENT (BEAKER) (test code = 430) MONOCYTES RELATIVE 11 % PERCENT (BEAKER) (test code = 431) EOSINOPHILS RELATIVE 2 % PERCENT (BEAKER) (test code = 432) BASOPHILS RELATIVE 0 % PERCENT (BEAKER) (test code = 437) NEUTROPHILS ABSOLUTE 7.93 K/ L 1.78-5.38 H COUNT (BEAKER) (test code = 670) LYMPHOCYTES ABSOLUTE 1.58 K/ L 1.32-3.57 COUNT (BEAKER) (test code = 414) MONOCYTES ABSOLUTE 1.26 K/ L 0.30-0.82 H COUNT (BEAKER) (test code = 415) EOSINOPHILS ABSOLUTE 0.22 K/ L 0.04-0.54 COUNT (BEAKER) (test code = 416) BASOPHILS ABSOLUTE 0.05 K/ L 0.01-0.08 COUNT (BEAKER) (test code = 417) IMMATURE 1.50 % 0.00-1.00 H GRANULOCYTES-RELATIVE PERCENT (BEAKER) (test code = 2801) , ABDOMEN, [id number] 21:31:00Unlisted Reason for Exam - Click Yes and Enter Reason Below->No Does the patient have an implanted electronic device?->NoJARED [facility] : 1975 Sex: MFINAL REPORT MRI of the abdomen with and without contrast Clinical History: Pancreatic cyst/pseudocyst Technique: Multiplanar and multisequence MR images of the abdomen are obtained before and after intravenous contrast administration. Contrast is administered to evaluate neoplasmand vasculature. Comparison: CT dated March 20, 2023, and March 18, 2023 performed at an outside institution Discussion: There are small bilateral pleural effusions, with atelectasis/consolidation in both lower lobes. Liver is not cirrhotic in morphology. Parenchymal signal is normal. No liver mass is identified. Hepatic vasculature is patent. Main portal vein measures 12 mm in diameter. There is no biliary ductal dilatation. Gallbladder is distended, without wall thickening or pericholecystic edema. No gallstone is seen. The pancreatic tail is edematous and enlarged, with surrounding edema/trace hemorrhagic fluid, compatible with acute pancreatitis. No discrete drainable collection is seen. Pancreatic duct is normal in caliber. The splenic vein appears attenuated. Spleen, and adrenal glands are normal. Kidneys demonstrate no mass, or hydronephrosis. Trace ascites. No lymphadenopathy. There is nonspecific distention of the colon, similar to the prior CT, probably reflecting ileus. Normal marrow signal. Impression: Acute pancreatitis, with peripancreatic edema and trace hemorrhagic fluid. No drainable/ organized fluid collection. Splenic vein appears attenuated. Nonspecific distention of the gallbladder. Colonic distention probably reflects ileus. Small bilateral pleural effusions. Bilateral lower lobe atelectasis/consolidation. Signed: Alex [place] Verified Date/Time: 03/26/2023 21:31:22 POCT-GLUCOSE [id number] 21:23:24 Test Item Value Reference Range Interpretation Comments POC-GLUCOSE METER 147 mg/dL 70-110 H : TESTED A T [facility] 6720 (BEAKER) (test code = [facility], 1538) 84842: Sample Maker Hand/Techni kenny ID = [id number] for PINO FAGAN POCT-GLUCOSE [id number] 18:16:36 Test Item Value Reference Range Interpretation Comments POC-GLUCOSE METER 181 mg/dL 70-110 H : TESTED A T [facility] 6720 (BEAKER) (test code = [facility], 1538) 77477: Sample Maker Hand/Techni kenny ID = [id number] for ARIANA WALDROP POCT-GLUCOSE [id number] 13:01:33 Test Item Value Reference Range Interpretation Comments POC-GLUCOSE METER 151 mg/dL 70-110 H : TESTED A T [facility] 6720 (BEAKER) (test code = [facility], 1538) 93921: Sample Maker Hand/Techni kenny ID = [id number] for ARIANA WALDROP POCT-GLUCOSE [id number] 09:13:50 Test Item Value Reference Range Interpretation Comments POC-GLUCOSE METER 164 mg/dL 70-110 H : TESTED A T [facility] 6720 (BEAKER) (test code = [facility], 1538) 95434: Sample Maker Hand/Techni kenny ID = [id number] for ARIANA WALDROP COMPREHENSIVE METABOLIC [id number] 05:30:35 Test Item Value Reference Range Interpretation Comments TOTAL PROTEIN 6.3 gm/dL 6.0-8.3 Specimen sligh tly (BEAKER) (test hemolyzed code = 770) ALBUMIN (BEAKER) 3.1 g/dL 3.5-5.0 L Specimen sl ightly (test code = 1145) hemolyzed ALKALINE 46 U/L 40-150 PHOSPHATASE (BEAKER) (test code = 346) BILIRUBIN TOTAL 0.3 mg/dL 0.2-1.2 Specimen sli ghtly (BEAKER) (test hemolyzed code = 377) SODIUM (BEAKER) 138 meq/L 136-145 (test code = 381) POTASSIUM (BEAKER) 4.4 meq/L 3.5-5.1 Specimen slightly (test code = 379) hemolyzed CHLORIDE (BEAKER) 106 meq/L 98-107 (test code = 382) CO2 (BEAKER) (test 24 meq/L 22-29 code = 355) BLOOD UREA 9 mg/dL 7-21 NITROGEN (BEAKER) (test code = 354) CREATININE 0.69 mg/dL 0.57-1.25 Specimen slight ly (BEAKER) (test hemolyzed code = 358) GLUCOSE RANDOM 126 mg/dL 70-105 H (BEAKER) (test code = 652) CALCIUM (BEAKER) 9.1 mg/dL 8.4-10.2 (test code = 697) AST (SGOT) 18 U/L 5-34 Specimen slight ly (BEAKER) (test hemolyzed code = 353) ALT (SGPT) 16 U/L 6-55 Specimen slight ly (BEAKER) (test hemolyzed code = 347) EGFR (BEAKER) 116 Interpretatio n of eGFR (test code = 1092) mL/min/1.[address] age Description sq m Result G1 Concepcion l or high >=90 G2 Mildly decreased 60-89 G3a Mildl y to moderately 45-5 9 G3b Moderately to s everely 30-44 G4 Severl y decreased 15-29 G5 Kidney failure <15Reported eGF R is based on the CKD-EPI 202 equation that d oes not use a race coefficientEsti mated GFR is not as accur ate as Creatinine Shellie abhishek in predicting glom erular filtration rate . Estimated GFR is not appl icable for dialysis patien ts Sample Maker Hand ID - [id number] 05:30:34 Test Item Value Reference Range Interpretation Comments MAGNESIUM (BEAKER) 2.0 mg/dL 1.6-2.6 Specimen slightly (test code = 627) hemolyzed Sample Maker Hand ID - [id number] 05:30:34 Test Item Value Reference Range Interpretation Comments PHOSPHORUS (BEAKER) 4.2 mg/dL 2.3-4.7 Specimen slightly (test code = 604) hemolyzed Sample Maker Hand ID - ADMINCBC W/PLT COUNT & AUTO [id number] 05:16:35 Test Item Value Reference Range Interpretation Comments WHITE BLOOD CELL COUNT 9.4 K/ L 3.5-10.5 (BEAKER) (test code = 775) RED BLOOD CELL COUNT 3.30 M/ L 4.63-6.08 L (BEAKER) (test code = 761) HEMOGLOBIN (BEAKER) 10.9 GM/DL 13.7-17.5 L (test code = 410) HEMATOCRIT (BEAKER) 31.3 % 40.1-51.0 L (test code = 411) MEAN CORPUSCULAR 95 fL 79-92 H Discordant results VOLUME (BEAKER) (test compar ed to previous code = 753) results; clinic al correlation req uired MEAN CORPUSCULAR 33.0 pg 25.7-32.2 H HEMOGLOBIN (BEAKER) (test code = 751) MEAN CORPUSCULAR 34.8 GM/DL 32.3-36.5 HEMOGLOBIN CONC (BEAKER) (test code = 752) RED CELL DISTRIBUTION 12.0 % 11.6-14.4 WIDTH (BEAKER) (test code = 412) PLATELET COUNT 311 K/CU MM 150-450 (BEAKER) (test code = 756) MEAN PLATELET VOLUME 8.4 fL 9.4-12.4 L (BEAKER) (test code = 754) NUCLEATED RED BLOOD 0 /100 WBC 0-0 CELLS (BEAKER) (test code = 413) NEUTROPHILS RELATIVE 67 % PERCENT (BEAKER) (test code = 429) LYMPHOCYTES RELATIVE 16 % PERCENT (BEAKER) (test code = 430) MONOCYTES RELATIVE 13 % PERCENT (BEAKER) (test code = 431) EOSINOPHILS RELATIVE 3 % PERCENT (BEAKER) (test code = 432) BASOPHILS RELATIVE 1 % PERCENT (BEAKER) (test code = 437) NEUTROPHILS ABSOLUTE 6.32 K/ L 1.78-5.38 H COUNT (BEAKER) (test code = 670) LYMPHOCYTES ABSOLUTE 1.47 K/ L 1.32-3.57 COUNT (BEAKER) (test code = 414) MONOCYTES ABSOLUTE 1.18 K/ L 0.30-0.82 H COUNT (BEAKER) (test code = 415) EOSINOPHILS ABSOLUTE 0.24 K/ L 0.04-0.54 COUNT (BEAKER) (test code = 416) BASOPHILS ABSOLUTE 0.05 K/ L 0.01-0.08 COUNT (BEAKER) (test code = 417) IMMATURE 1.20 % 0.00-1.00 H GRANULOCYTES-RELATIVE PERCENT (BEAKER) (test code = 2801) COMPREHENSIVE METABOLIC [id number] 04:16:52 Test Item Value Reference Range Interpretation Comments TOTAL PROTEIN 6.0 gm/dL 6.0-8.3 (BEAKER) (test code = 770) ALBUMIN (BEAKER) 3.0 g/dL 3.5-5.0 L (test code = 1145) ALKALINE 46 U/L 40-150 PHOSPHATASE (BEAKER) (test code = 346) BILIRUBIN TOTAL 0.4 mg/dL 0.2-1.2 (BEAKER) (test code = 377) SODIUM (BEAKER) 135 meq/L 136-145 L (test code = 381) POTASSIUM (BEAKER) 4.0 meq/L 3.5-5.1 (test code = 379) CHLORIDE (BEAKER) 104 meq/L 98-107 (test code = 382) CO2 (BEAKER) (test 21 meq/L 22-29 L code = 355) BLOOD UREA 7 mg/dL 7-21 NITROGEN (BEAKER) (test code = 354) CREATININE 0.68 mg/dL 0.57-1.25 (BEAKER) (test code = 358) GLUCOSE RANDOM 167 mg/dL 70-105 H (BEAKER) (test code = 652) CALCIUM (BEAKER) 8.6 mg/dL 8.4-10.2 (test code = 697) AST (SGOT) 14 U/L 5-34 (BEAKER) (test code = 353) ALT (SGPT) 14 U/L 6-55 (BEAKER) (test code = 347) EGFR (BEAKER) 116 Interpretatio n of eGFR (test code = 1092) mL/min/1.[address] age Description sq m Result G1 Concepcion l or high >=90 G2 Mildly decreased 60-89 G3a Mildl y to moderately 45-5 9 G3b Moderately to s everely 30-44 G4 Sever ly decreased 15-29 G5 Kidney failure <15Repo rted eGFR is based on the CKD-EPI 2020 equation t hat does not use a race coefficientEsti mated GFR is not as accur ate as Creatinine Shellie abhishek in predicting glom erular filtration rate . Estimated GFR is not appl icable for dialysis patien ts Sample Maker Hand ID - ADMINCBC W/PLT COUNT & AUTO [id number] 03:50:07 Test Item Value Reference Range Interpretation Comments WHITE BLOOD CELL COUNT (BEAKER) 9.3 K/ L 3.5-10.5 (test code = 775) RED BLOOD CELL COUNT (BEAKER) 3.25 M/ L 4.63-6.08 L (test code = 761) HEMOGLOBIN (BEAKER) (test code = 10.8 GM/DL 13.7-17.5 L 410) HEMATOCRIT (BEAKER) (test code = 32.3 % 40.1-51.0 L 411) MEAN CORPUSCULAR VOLUME (BEAKER) 99 fL 79-92 H (test code = 753) MEAN CORPUSCULAR HEMOGLOBIN 33.2 pg 25.7-32.2 H (BEAKER) (test code = 751) MEAN CORPUSCULAR HEMOGLOBIN CONC 33.4 GM/DL 32.3-36.5 (BEAKER) (test code = 752) RED CELL DISTRIBUTION WIDTH 12.0 % 11.6-14.4 (BEAKER) (test code = 412) PLATELET COUNT (BEAKER) (test 243 K/CU MM 150-450 code = 756) MEAN PLATELET VOLUME (BEAKER) 8.5 fL 9.4-12.4 L (test code = 754) NUCLEATED RED BLOOD CELLS 0 /100 WBC 0-0 (BEAKER) (test code = 413) NEUTROPHILS RELATIVE PERCENT 64 % (BEAKER) (test code = 429) LYMPHOCYTES RELATIVE PERCENT 20 % (BEAKER) (test code = 430) MONOCYTES RELATIVE PERCENT 12 % (BEAKER) (test code = 431) EOSINOPHILS RELATIVE PERCENT 3 % (BEAKER) (test code = 432) BASOPHILS RELATIVE PERCENT 1 % (BEAKER) (test code = 437) NEUTROPHILS ABSOLUTE COUNT 5.95 K/ L 1.78-5.38 H (BEAKER) (test code = 670) LYMPHOCYTES ABSOLUTE COUNT 1.88 K/ L 1.32-3.57 (BEAKER) (test code = 414) MONOCYTES ABSOLUTE COUNT (BEAKER) 1.08 K/ L 0.30-0.82 H (test code = 415) EOSINOPHILS ABSOLUTE COUNT 0.24 K/ L 0.04-0.54 (BEAKER) (test code = 416) BASOPHILS ABSOLUTE COUNT (BEAKER) 0.05 K/ L 0.01-0.08 (test code = 417) IMMATURE GRANULOCYTES-RELATIVE 1.30 % 0.00-1.00 H PERCENT (BEAKER) (test code = 2801) POCT-GLUCOSE [id number] 21:15:52 Test Item Value Reference Range Interpretation Comments POC-GLUCOSE METER 120 mg/dL 70-110 H : TESTED A T [facility] 6720 (BEAKER) (test code = [facility], 1538) 87715: Sample Maker Hand/Techni kenny ID = [id number] for Tomasz WILLI POCT-GLUCOSE [id number] 17:09:03 Test Item Value Reference Range Interpretation Comments POC-GLUCOSE METER 151 mg/dL 70-110 H : TESTED A T [facility] 6720 (BEAKER) (test code [facility], = 1538) 51810: Sample Maker Hand/Techni kenny ID = [id number] for Corey (contract), LaT onya POCT-GLUCOSE [id number] 12:37:01 Test Item Value Reference Range Interpretation Comments POC-GLUCOSE METER 131 mg/dL 70-110 H : TESTED A T [facility] 6720 (BEAKER) (test code [facility], = 1538) 11365: Sample Maker Hand/Techni kenny ID = [id number] for Corey (contract), LaT onya POCT-GLUCOSE [id number] 08:20:43 Test Item Value Reference Range Interpretation Comments POC-GLUCOSE METER 151 mg/dL 70-110 H : TESTED A T [facility] 6720 (BEAKER) (test code [facility], = 1538) 86237: Sample Maker Hand/Techni kenny ID = [id number] for Corey (contract), LaT onya COMPREHENSIVE METABOLIC [id number] 18:56:07 Test Item Value Reference Range Interpretation Comments TOTAL PROTEIN 6.8 gm/dL 6.0-8.3 (BEAKER) (test code = 770) ALBUMIN (BEAKER) 3.3 g/dL 3.5-5.0 L (test code = 1145) ALKALINE 59 U/L 40-150 PHOSPHATASE (BEAKER) (test code = 346) BILIRUBIN TOTAL 0.6 mg/dL 0.2-1.2 (BEAKER) (test code = 377) SODIUM (BEAKER) 135 meq/L 136-145 L (test code = 381) POTASSIUM (BEAKER) 3.6 meq/L 3.5-5.1 (test code = 379) CHLORIDE (BEAKER) 101 meq/L 98-107 (test code = 382) CO2 (BEAKER) (test 25 meq/L 22-29 code = 355) BLOOD UREA 8 mg/dL 7-21 NITROGEN (BEAKER) (test code = 354) CREATININE 0.70 mg/dL 0.57-1.25 (BEAKER) (test code = 358) GLUCOSE RANDOM 141 mg/dL 70-105 H (BEAKER) (test code = 652) CALCIUM (BEAKER) 9.0 mg/dL 8.4-10.2 (test code = 697) AST (SGOT) 16 U/L 5-34 (BEAKER) (test code = 353) ALT (SGPT) 15 U/L 6-55 (BEAKER) (test code = 347) EGFR (BEAKER) 115 Interpretatio n of eGFR (test code = 1092) mL/min/1.[address] age Description sq m Result G1 Concepcion l or high >=90 G2 Mildly decreased 60-89 G3a Mildl y to moderately 45-5 9 G3b Moderately to s everely 30-44 G4 Severl y decreased 15-29 G5 Kidney failure <15Reported eGF R is based on the CKD-EPI 202 equation that d oes not use a race coefficientEsti mated GFR is not as accur ate as Creatinine Shellie abhishek in predicting glom erular filtration rate . Estimated GFR is not appl icable for dialysis patien ts Sample Maker Hand ID - ADMINLIPID [id number] 18:56:07 Test Item Value Reference Range Interpretation Comments TRIGLYCERIDES (BEAKER) (test code = 132 mg/dL 540) CHOLESTEROL (BEAKER) (test code = 132 mg/dL 631) HDL CHOLESTEROL (BEAKER) (test code 17 mg/dL = 976) LDL CHOLESTEROL CALCULATED (BEAKER) 89 mg/dL (test code = 633) Triglyceride Reference Range: Low Risk <150 Borderline 150-199 High Risk 200- 499 Very High Risk >=500Cholesterol Reference Range: Low Risk <200 Borderline 200-239 High Risk >240HDL Cholesterol Reference Range: Low Risk >=60 High Risk <40LDL Cholesterol Reference Range: Optimal <100 Near Optimal 100-129 Borderline 130-159 High 160-189 Very High >=190 Sample Maker Hand ID - ADMINCBC W/PLT COUNT & AUTO [id number] 18:33:49 Test Item Value Reference Range Interpretation Comments WHITE BLOOD CELL COUNT (BEAKER) 10.7 K/ L 3.5-10.5 H (test code = 775) RED BLOOD CELL COUNT (BEAKER) 3.56 M/ L 4.63-6.08 L (test code = 761) HEMOGLOBIN (BEAKER) (test code = 11.9 GM/DL 13.7-17.5 L 410) HEMATOCRIT (BEAKER) (test code = 34.6 % 40.1-51.0 L 411) MEAN CORPUSCULAR VOLUME (BEAKER) 97 fL 79-92 H (test code = 753) MEAN CORPUSCULAR HEMOGLOBIN 33.4 pg 25.7-32.2 H (BEAKER) (test code = 751) MEAN CORPUSCULAR HEMOGLOBIN CONC 34.4 GM/DL 32.3-36.5 (BEAKER) (test code = 752) RED CELL DISTRIBUTION WIDTH 11.9 % 11.6-14.4 (BEAKER) (test code = 412) PLATELET COUNT (BEAKER) (test 195 K/CU MM 150-450 code = 756) MEAN PLATELET VOLUME (BEAKER) 8.2 fL 9.4-12.4 L (test code = 754) NUCLEATED RED BLOOD CELLS 0 /100 WBC 0-0 (BEAKER) (test code = 413) NEUTROPHILS RELATIVE PERCENT 66 % (BEAKER) (test code = 429) LYMPHOCYTES RELATIVE PERCENT 17 % (BEAKER) (test code = 430) MONOCYTES RELATIVE PERCENT 13 % (BEAKER) (test code = 431) EOSINOPHILS RELATIVE PERCENT 2 % (BEAKER) (test code = 432) BASOPHILS RELATIVE PERCENT 1 % (BEAKER) (test code = 437) NEUTROPHILS ABSOLUTE COUNT 7.10 K/ L 1.78-5.38 H (BEAKER) (test code = 670) LYMPHOCYTES ABSOLUTE COUNT 1.80 K/ L 1.32-3.57 (BEAKER) (test code = 414) MONOCYTES ABSOLUTE COUNT (BEAKER) 1.38 K/ L 0.30-0.82 H (test code = 415) EOSINOPHILS ABSOLUTE COUNT 0.22 K/ L 0.04-0.54 (BEAKER) (test code = 416) BASOPHILS ABSOLUTE COUNT (BEAKER) 0.05 K/ L 0.01-0.08 (test code = 417) IMMATURE GRANULOCYTES-RELATIVE 1.20 % 0.00-1.00 H PERCENT (BEAKER) (test code = 2801) POCT-GLUCOSE [id number] 18:27:44 Test Item Value Reference Range Interpretation Comments POC-GLUCOSE METER 105 mg/dL 70-110 : TESTED A T [facility] 6720 (BEAKER) (test code = SER[place], 1538) [address]: Sample Maker Hand/Techni kenny ID = [id number] for ARIANA WALDROP COMPAditya METABOLIC PANEL ([id number])2022-01-08 16:51:03 Test Item Value Reference Range Interpretation Comments NA (test code = 135 mmol/L 135-145 8108057089) K (test code = 4.6 mmol/L 3.5-5.0 8724832009) CL (test code = 103 mmol/L 98-108 6668283672) CO2 TOTAL (test code = 21 mmol/L 23-31 L 8481394843) AGAP (test code = 2-16 2148608613) BUN (test code = 14 mg/dL 7-23 3233832782) GLUCOSE (test code = 116 mg/dL 70-110 H 1711551540) CREATININE (test code = 0.78 mg/dL 0.60-1.25 7357162428) TOTAL BILI (test code = 1.0 mg/dL 0.1-1.1 5916509599) CALCIUM (test code = 9.6 mg/dL 8.6-10.6 5835317756) T PROTEIN (test code = 7.8 g/dL 6.3-8.2 8144792883) ALBUMIN (test code = 4.8 g/dL 3.5-5.0 9018179063) ALK PHOS (test code = 71 U/L 34-122 6569421133) ALTv (test code = 56 U/L 5-50 H 2-6) AST(SGOT) (test code = 60 U/L 13-40 H 0055397613) eGFR (test code = mL/min/1.73m2 9259761868) DAYSI (test code = DAYSI) Association of Glomerular Filtration Rate (GFR) and Staging of Kidney Disease* + --+ --+ ------+| GFR (mL/min/1.73 m2) ?| With Kidney Damage ?| ?Without Kidney Damage+ --------+ --------+ +| ?>90 ?| ?Stage one ?| ? Normal ?+ ---+ ---+ -------+| ?60-89 ?| ?Stage two ?| ? Decreased GFR ? + --+ --+ ------+| ?30-59 ?| ?Stage three ?| ? Stage three ? + --+ --+ ------+| ?15-29 ?| ?Stage four ? | ? Stage four ?+ ---+ ---+ -------+| ?<15 (or dialysis) ? ?| ?Stage five ? | ? Stage five ?+ ---+ ---+ -------+ *Each stage assumes the associated GFR [...] or abnormalities in imaging tests). Lab Interpretation Abnormal (test code = 65345-7) [facility] Test Item Value Reference Range Interpretation Comments LIPASE (test code = 6824658946) 233 U/L 0-220 H Lab Interpretation (test code = Abnormal 47933-5) [facility] WITH [id number] 16:35:43 Test Item Value Reference Range Interpretation [...] RDW-SD (test code = 42.5 fL 38.5-51.6 72991-4) RDW-CV (test code = 11.7 % 12.1-15.4 L 788-0) PLT (test code = See_Comment [Automated 777-3) message] The sy stem which generated this result transmitted reference range : 150 - 328 10*3/ ?L. The reference r evaristo was not used to interpret this result as normal/abnormal . MPV (test code = 8.5 fL 9.8-13.0 L 12020-8) NRBC/100 WBC (test See_Comment [Automat ed code = 3805646211) message] The system which generated this result transmitted reference range : 0.0 - 10.0 /100 WBCs. The refer ence range was not u sed to interpret th is result as normal/abnormal . NRBC x10^3 (test code <0.01 See_Comment [Auto mated = 7396953080) message] The s ystem which generated this result transmitted reference range : 10*3/?L. The reference range was not used to interpret this result as normal/abnormal . GRAN MAT (NEUT) % 66.0 % (test code = 770-8) IMM GRAN % (test code 0.20 % = 5190417550) LYMPH % (test code = 21.2 % 736-9) MONO % (test code = 10.5 % 5905-5) EOS % (test code = 1.3 % 713-8) BASO % (test code = 0.8 % 706-2) GRAN MAT x10^3(ANC) 5.71 10*3/uL 1.99-6.95 (test code = 5678282468) IMM GRAN x10^3 (test <0.03 0.00-0.06 code = 3140996521) LYMPH x10^3 (test code 1.83 10*3/uL 1.09-3.23 = 731-0) MONO x10^3 (test code 0.91 10*3/uL 0.36-1.02 = 742-7) EOS x10^3 (test code = 0.11 10*3/uL 0.06-0.53 711-2) BASO x10^3 (test code 0.07 10*3/uL 0.01-0.09 = 704-7) Lab Interpretation Abnormal (test code = 24401-6) [facility]"
--- NOTE | 2023-09-05 13:08 | ER ---
Nurse's Notes [facility] Name: Omar Johnson Age: 48 yrs Sex: Male : 1975 Arrival Date: 09/05/2023 Time: 12:31 Bed DIS3 Private MD: Diagnosis: Cellulitis of finger Presentation: 09/05 12:55 Chief complaint: Patient states: pain to fingertips of left hand X4 days. Pt states cm10 that he has similar pain in the past. Coronavirus screen: Vaccine status: Patient reports being unvaccinated. Client denies travel out of the [place] in the last 14 days. Ebola Screen: Patient denies travel to an Ebola-affected area in the 21 days before illness onset. No symptoms or risks identified at this time. Initial Sepsis Screen: Does the patient meet any 2 criteria? No. Patient's initial sepsis screen is negative. Does the patient have a suspected source of infection? No. Patient's initial sepsis screen is negative. Risk Assessment: Do you want to hurt yourself or someone else? Patient reports no desire to harm self or others. Onset of symptoms was September 01, 2023. 12:55 Method Of Arrival: Ambulatory cm10 12:55 Acuity: AMOR 4 cm10 Triage Assessment: 12:56 General: Appears in no apparent distress. comfortable, Behavior is calm, cooperative. cm10 Pain: Complains of pain in left hand. Neuro: No deficits noted. Suazo Agitation-Sedation Scale (RASS): 0 - Alert and Calm Level of Consciousness is awake, alert, obeys commands, Oriented to person, place, time, situation. Respiratory: No deficits noted. Airway is patent Respiratory effort is even, unlabored, Respiratory pattern is regular, symmetrical. 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 - Social history:: Smoking status: Patient reports the use of cigarette tobacco products, smokes one-half pack cigarettes per day, Patient uses street drugs, marijuana. Screenin:19 [facility] ED Fall Risk Assessment (Adult) History of falling in the last 3 months, ap3 including since admission No falls in past 3 months (0 pts). Abuse screen: Denies threats or abuse. Nutritional screening: No deficits noted. Tuberculosis screening: No symptoms or risk factors identified. Assessment: 13:19 General: Appears uncomfortable, Behavior is calm, cooperative, appropriate for age. ap3 Pain: Pain currently is 8 out of 10 on a pain scale. Neuro: Level of Consciousness is awake, alert, obeys commands, Oriented to person, place, time, situation. Vital Signs: 12:55 BP 108 / 90; Pulse 96; Resp 16 S; Temp 97.7(TE); Pulse Ox 98% on R/A; Weight 65.77 kg cm10 (R); Height 5 ft. 9 in. ; Pain 10/10; 12:55 Body Mass Index 21.41 (65.77 kg, 175.26 cm) cm10 12:55 Pain Scale: Adult cm10 ED Course: 12:33 Patient arrived in ED. mg5 12:35 Mirza Giang MD is Attending Physician. ec2 12:56 Triage completed. cm10 12:57 Arm band placed on Patient placed in waiting room. cm10 13:19 Patient has correct armband on for positive identification. Call light in reach. ap3 Provided Education on: medication prior to administration . 13:37 No provider procedures requiring assistance completed. Patient did not have IV access ap3 during this emergency room visit. Administered Medications: 13:19 Drug: Ketorolac IM 30 mg IM once Route: IM; Site: left deltoid; ap3 13:37 Follow up: Response: No adverse reaction; Pain is decreased ap3 13:19 Drug: HYDROcodone-acetaminophen PO 5 mg-325 mg 1 tabs PO once Route: PO; ap3 13:36 Follow up: Response: No adverse reaction ap3 13:37 Follow up: Response: Pain is decreased ap3 13:19 Drug: Doxycycline PO 100 mg PO once Route: PO; ap3 13:36 Follow up: Response: No adverse reaction ap3 Medication: 13:37 VIS not applicable for this client. ap3 Outcome: 13:08 Discharge ordered by MD. ec2 13:37 Discharged to home ambulatory, ap3 13:37 Condition: good 13:37 Discharge instructions given to patient, Instructed on discharge instructions, follow up and referral plans. medication usage, Demonstrated understanding of instructions, follow-up care, medications, Prescriptions given X 1, 13:37 Patient left the ED. ap3 Signatures: Karen Stout RN RN ap3 Christina Bell RN RN cm10 Allyson Doe mg5 Mirza Giang MD MD ec2
--- NOTE | 2023-09-05 13:09 | EDPHYS ---
Physician Documentation [facility] Name: Omar Johnson Age: 48 yrs Sex: Male : 1975 Arrival Date: 09/05/2023 Time: 12:31 Bed DIS3 Private MD: ED Physician Mirza Giang HPI: 09/05 13:05 This 48 yrs old Male presents to ER via Ambulatory with complaints of Hand ec2 Pain. 13:05 Arrives today due to concern for left pointer finger pain. Patient is a 1 pack/day ec2 smoker, states that he was diagnosed with Buerger's disease, states he is having pain at the left pointer finger. Patient reports that he frequently has pain in these areas, frequently gets infections and attempt self draining at home. States that he had noted some pain, attempted to drain it himself and did not get any pus return back. Patient reports no fevers or chills, no nausea or vomiting. Patient denies any trauma or injury to the area.. 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 - Social history:: Smoking status: Patient reports the use of cigarette tobacco products, smokes one-half pack cigarettes per day, Patient uses street drugs, marijuana. ROS: 13:05 Constitutional: as per hpi ec2 Exam: 13:05 Constitutional: GEN: NAD Head: atraumatic Eyes: EOMI Ears: External ears are ec2 normal. CV: regular rate LUNGS: no respiratory distress ABD: non-distended SKIN: Left pointer finger with firm induration to the distal tip, no fluctuance appreciated, no fusiform swelling, no pain with passive range of motion, no significant bony tenderness to palpations, no tracking lymphangitis noted. MSK: no evidence of trauma NEURO: moves all extremities equally Vital Signs: 12:55 BP 108 / 90; Pulse 96; Resp 16 S; Temp 97.7(TE); Pulse Ox 98% on R/A; Weight 65.77 kg cm10 (R); Height 5 ft. 9 in. ; Pain 10/10; 12:55 Body Mass Index 21.41 (65.77 kg, 175.26 cm) cm10 12:55 Pain Scale: Adult cm10 MDM: 12:35 Patient medically screened. ec2 13:05 Data reviewed: vital signs. ED course: Patient arrives today due to concern for left ec2 index finger pain. Examination remarkable for well-appearing nontoxic individual with reassuring vital signs who has tenderness palpation and findings as noted above. Clinically presentation consistent with cellulitis, I have a low index suspicion for drainable abscess given appearance and firmness of the area, low index suspicion for osteomyelitis given lack of systemic symptoms, similarly low index of suspicion for flexor tenosynovitis given lack of pain on extension or fusiform swelling. We will start the patient on antibiotics, check, no turn-nde-jvdfeoh medications and return precautions given. Additionally the finger does not appear gangrenous, have a low index suspicion for vascular injury.. Administered Medications: 13:19 Drug: Ketorolac IM 30 mg IM once Route: IM; Site: left deltoid; ap3 13:37 Follow up: Response: No adverse reaction; Pain is decreased ap3 13:19 Drug: HYDROcodone-acetaminophen PO 5 mg-325 mg 1 tabs PO once Route: PO; ap3 13:36 Follow up: Response: No adverse reaction ap3 13:37 Follow up: Response: Pain is decreased ap3 13:19 Drug: Doxycycline PO 100 mg PO once Route: PO; ap3 13:36 Follow up: Response: No adverse reaction ap3 Disposition Summary: 09/05/23 13:08 Discharge Ordered Notes: Location: Home ec2 Condition: Stable ec2 Diagnosis - Cellulitis of finger ec2 Discharge Instructions: - Discharge Summary Sheet ec2 - Cellulitis, Adult, [id number] ec2 Forms: - Medication Reconciliation Form ec2 - Thank You Letter ec2 - Antibiotic Education ec2 - Prescription Opioid Use ec2 - Patient Portal Instructions ec2 - Leadership Thank You Letter ec2 Prescriptions: - Doxycycline Hyclate 100 mg Oral Tablet - take 1 tablet ORAL route every 12 hours; 20 tablet; Refills: 0, Product ec2 Selection Permitted Signatures: Karen Sotut RN RN ap3 Christina Bell RN RN cm10 Mirza Giang MD MD ec2 Corrections: (The following items were deleted from the chart) 13:08 13:05 ED course: Patient arrives today due to concern for left index finger pain. ec2 Examination remarkable for well-appearing nontoxic individual with reassuring vital signs who has tenderness palpation and findings as noted above. Clinically presentation consistent with cellulitis, I have a low index suspicion for drainable abscess given appearance and firmness of the area, low index suspicion for osteomyelitis given lack of systemic symptoms, similarly low index of suspicion for flexor tenosynovitis given lack of pain on extension or fusiform swelling. We will start the patient on antibiotics, check, no [id number]-pdg-rcdvlot medications and return precautions given.. ec2
== END 2023-09-05 13:37 | disposition home or self-care (01) ==
LOC: ER 12:31
DX: L03.012 Cellulitis of left finger (principal)

== ENCOUNTER → 2023-12-07 | Emergency (ER) | payer SELFPAY ==
[~2023-12-07] MED LIST: GABAPENTIN 300 MG CAP ONE; HYDROCODONE/APAP 10/325 TAB ONE
--- NOTE | 2023-12-07 18:31 | ER ---
Nurse's Notes [facility] Name: Omar Johnson Age: 48 yrs Sex: Male : 1975 Arrival Date: 12/07/2023 Time: 17:40 Bed IW1 Private MD: Diagnosis: Pain in right hand;Pain in left hand Presentation: 12/07 17:55 Chief complaint: Patient states: bilateral hand pain onset 15 years ago. pt states that cm10 the pain is getting worse. Pt reports taking Tylenol and ibuprofen today with no relief. Coronavirus screen: Vaccine status: Patient reports being unvaccinated. Client denies travel out of the [place] in the last 14 days. Ebola Screen: Patient denies travel to an Ebola-affected area in the 21 days before illness onset. No symptoms or risks identified at this time. Initial Sepsis Screen: Does the patient meet any 2 criteria? No. Patient's initial sepsis screen is negative. Does the patient have a suspected source of infection? No. Patient's initial sepsis screen is negative. Risk Assessment: Do you want to hurt yourself or someone else? Patient reports no desire to harm self or others. Onset of symptoms was December 07, 2023. 17:55 Method Of Arrival: Ambulatory cm10 17:55 Acuity: AMOR 4 cm10 Triage Assessment: 17:59 General: Appears in no apparent distress. comfortable, Behavior is calm, cooperative. cm10 Pain: Complains of pain in right hand and left hand Pain currently is 8 out of 10 on a pain scale. Pain began years ago. Neuro: No deficits noted. Level of Consciousness is awake, alert, obeys commands, Oriented to person, place, time, situation. Respiratory: No deficits noted. Airway is patent Respiratory effort is even, unlabored, Respiratory pattern is regular, symmetrical. Historical: - Allergies: 17:57 No Known Allergies; cm10 - PMHx: 17:57 King's Disease; Pancreatitis; psoriasis; cm10 - PSHx: 17:57 left knee; cm10 - Immunization history:: Adult Immunizations up to date. - Social history:: Smoking status: Reported history of juuling and/or vaping. - Family history:: not pertinent. - Hospitalizations: : No recent hospitalization is reported. Screenin:03 [facility] ED Fall Risk Assessment (Adult) History of falling in the last 3 months, cm10 including since admission No falls in past 3 months (0 pts) Confusion or Disorientation No (0 pts) Intoxicated or Sedated No (0 pts) Impaired Gait No (0 pts) Mobility Assist Device Used No (0 pt) Altered Elimination No (0 pt) Score/Fall Risk Level 0 - 2 = Low Risk Oriented to surroundings, Maintained a safe environment, Hourly rounding (assess needs \T\ fall precautionary measures) done. Abuse screen: Denies threats or abuse. Denies injuries from another. Nutritional screening: No deficits noted. Tuberculosis screening: No symptoms or risk factors identified. Vital Signs: 17:55 BP 147 / 94; Pulse 72; Resp 18; Temp 97.3; Pulse Ox 96% on R/A; Weight 66.22 kg (R); cm10 Height 5 ft. 8 in. (R); Pain 8/10; 17:55 Body Mass Index 22.20 (66.22 kg, 172.72 cm) cm10 17:55 Pain Scale: Adult cm10 ED Course: 17:45 Patient arrived in ED. mg5 17:57 Triage completed. cm10 17:57 Arm band placed on Patient placed in waiting room. cm10 17:59 Koby Goodson MD is Attending Physician. rn 18:03 Patient has correct armband on for positive identification. Provided Education on: ER cm10 process and procedures. . Cardiac monitoring not applicable on this patient. 18:38 No provider procedures requiring assistance completed. Patient did not have IV access cm10 during this emergency room visit. Administered Medications: 18:33 Drug: HYDROcodone-acetaminophen PO 10 mg-325 mg 1 tabs PO once Route: PO; cm10 18:38 Follow up: Response: No adverse reaction cm10 18:33 Drug: Gabapentin PO 300 mg PO once Route: PO; cm10 18:38 Follow up: Response: No adverse reaction cm10 Medication: 18:03 VIS not applicable for this client. cm10 Outcome: 18:30 Discharge ordered by . rn 18:38 Discharged to home ambulatory, with significant other, cm10 18:38 Condition: good 18:38 Discharge instructions given to patient, Instructed on discharge instructions, follow up and referral plans. medication usage, Demonstrated understanding of instructions, follow-up care, medications, Prescriptions given X 2, 18:38 Patient left the ED. cm10 Signatures: Koby Goodson MD MD rn Christina Bell RN RN [email or web address] Allyson Doe mg5 Corrections: (The following items were deleted from the chart) 18:03 17:57 Social history: Smoking status: Patient/guardian denies using tobacco, 10 cm10
--- NOTE | 2023-12-07 18:31 | EDPHYS ---
Physician Documentation [facility] Name: Omar Johnson Age: 48 yrs Sex: Male : 1975 Arrival Date: 12/07/2023 Time: 17:40 Bed IW1 Private MD: ED Physician Koby Goodson HPI: 12/07 18:21 This 48 yrs old Male presents to ER via Ambulatory with complaints of Hand Pain. rn 18:21 The patient or guardian reports pain. The complaints affect the right hand and left rn hand. Onset: The symptoms/episode began/occurred at an unknown time. Modifying factors: The symptoms are alleviated by nothing, the symptoms are aggravated by Oxycodone. Associated signs and symptoms: Pertinent negatives: cyanosis distally, decreased sensation distally, fever, numbness distally, tingling distally. Severity of symptoms: At their worst the symptoms were moderate. The patient has experienced similar episodes in the past. The patient has not recently seen a physician. Patient reports years of hand pain. Works with his hands. Has been told he might have Raynaud's or Buerger's disease. Reports worse over the last few weeks when it was cold. Not from around here and came in for pain control. Reports in the gold hands turned purple and red once warmed up to get better.. Historical: - Allergies: 17:57 No Known Allergies; cm10 - PMHx: 17:57 King's Disease; Pancreatitis; psoriasis; cm10 - PSHx: 17:57 left knee; cm10 - Immunization history:: Adult Immunizations up to date. - Social history:: Smoking status: Reported history of juuling and/or vaping. - Family history:: not pertinent. - Hospitalizations: : No recent hospitalization is reported. ROS: 18:21 Constitutional: Negative for fever, chills, and weight loss, Cardiovascular: Negative rn for chest pain, palpitations, and edema, Respiratory: Negative for shortness of breath, cough, wheezing, and pleuritic chest pain, MS/Extremity: Negative for injury and deformity, Exam: 18:21 Constitutional: This is a well developed, well nourished patient who is awake, alert, rn and in no acute distress. Skin: Warm, dry with normal turgor. Normal color with no rashes, no lesions, and no evidence of cellulitis. MS/ Extremity: Pulses equal, no cyanosis. Neurovascular intact. Full, normal range of motion. Equal circumference. Vital Signs: 17:55 BP 147 / 94; Pulse 72; Resp 18; Temp 97.3; Pulse Ox 96% on R/A; Weight 66.22 kg (R); cm10 Height 5 ft. 8 in. (R); Pain 8/10; 17:55 Body Mass Index 22.20 (66.22 kg, 172.72 cm) cm10 17:55 Pain Scale: Adult cm10 MDM: 17:59 Patient medically screened. rn 18:21 Differential diagnosis: Vasculitis, Raynaud's. Data reviewed: vital signs, nurses rn notes, and as a result, I will discharge patient. Counseling: I had a detailed discussion with the patient and/or guardian regarding the historical points, exam findings, and any diagnostic results supporting the discharge/admit diagnosis, the need for outpatient follow up, to return to the emergency department if symptoms worsen or persist or if there are any questions or concerns that arise at home. Special discussion: I discussed with the patient/guardian in detail that at this point there is no indication for admission to the hospital. It is understood, however, that if the symptoms persist or worsen the patient needs to return immediately for re-evaluation. ED course: Had long discussion with patient regarding pain medication. Recommend patient follows up with rheumatology for clear diagnosis as we are not even sure he has Raynaud's. Talk to him about possible options once diagnosis made.. Administered Medications: 18:33 Drug: HYDROcodone-acetaminophen PO 10 mg-325 mg 1 tabs PO once Route: PO; cm10 18:38 Follow up: Response: No adverse reaction cm10 18:33 Drug: Gabapentin PO 300 mg PO once Route: PO; cm10 18:38 Follow up: Response: No adverse reaction cm10 Disposition Summary: 12/07/23 18:30 Discharge Ordered Notes: Location: Home rn Problem: chronic rn Symptoms: have improved rn Condition: Stable rn Diagnosis - Pain in right hand rn - Pain in left hand rn Followup: rn - With: Private Physician - When: As needed - Reason: Recheck today's complaints, Re-evaluation by your physician Discharge Instructions: - Discharge Summary Sheet rn - Musculoskeletal Pain rn Forms: - Medication Reconciliation Form rn - Thank You Letter rn - Antibiotic critical care rn - Prescription Opioid Use rn - Patient Portal Instructions rn - Leadership Thank You Letter rn Prescriptions: - gabapentin 300 mg Oral capsule - take 1 capsule ORAL route every 12 hours As needed; 12 capsule; Refills: 0, rn Product Selection Permitted - Tramadol 50 mg Oral Tablet - take 1 tablet ORAL route every 8 hours as needed; 12 tablet; Refills: 0, rn Product Selection Permitted Signatures: Koby Goodson MD MD rn Martinez, Clarissa, RN RN 10 Corrections: (The following items were deleted from the chart) 18:03 17:57 Social history: Smoking status: Patient/guardian denies using tobacco, cm10 cm10
[2023-12-07 19:43] VITALS: BP 147/94; TEMP 97.3; O2SAT 96
== END ==
LOC: ER 17:40
DX: M79.642 Pain in left hand (principal); M79.641 Pain in right hand; F17.290 Nicotine dependence, other tobacco product, uncomplicated
CPT/HCPCS: 99283